=== PATIENT | male | born 1935 | race Caucasian/White ===

== ENCOUNTER 2018-09-21 17:49 | Emergency (ER) | payer OTHER ==
--- NOTE | 2018-09-21 18:06 | PDOC ---
History of Present Illness - General Stated Complaint: GI BLEED Time Seen by Provider: 09/21/18 18:00 - History of Present Illness Initial Comments: 09/21/18 18:01 77 year referred from [facility] HTN, COPD, A.fib, BPH had 2 loose black stools. Had no vomiting. on coumadin. baseline INR: 3.9-3.8, last recorded Hb 10.5 No fevers is not entirely incohorent at baseline - per [facility] the patient can feed himself and can maintain simple conversation. Past History - Past Medical History Allergies/Adverse Reactions: Allergies Allergy/AdvReac Type Severity Reaction Status Date / Time No Known Allergies Allergy Verified 09/21/18 18:04 Home Medications: Ambulatory Orders Acetaminophen [Tylenol] 650 mg PO Q6H 05/13/13 Calcium Carbonate/Vitamin D3 [Oyster Shell Calcium 500+D Tab] 1 each PO BID Captopril [Capoten] 25 mg PO BID 05/13/13 Carvedilol 25 mg PO DAILY 05/13/13 Clopidogrel Bisulfate [Plavix] 75 mg PO DAILY 05/13/13 Docusate Sodium [Colace] 100 mg PO Q8H 05/13/13 Folic Acid 1 mg PO DAILY 05/13/13 Ipratropium 0.02% Nebulizer [Atrovent] 1 neb NEB Q6H PRN 05/13/13 Iron,Carbonyl [Iron] 325 mg PO BID 05/13/13 Levothyroxine [Synthroid] 25 mcg PO DAILY 05/13/13 Na Phos,M-B/Na Phos,Di-Ba [Fleet Enema] 118 ml RC DAILY PRN 05/13/13 Ranitidine HCl [Zantac] 150 mg PO BID 05/13/13 Sennosides [Senna] 8.6 mg PO HS 05/13/13 Simvastatin [Zocor] 40 mg PO HS 05/13/13 Tamsulosin HCl 0.4 mg PO DAILY 05/13/13 Warfarin Sodium [Coumadin] 3 mg PO DAILY 05/13/13 Cardiac Disorders: Yes (A-FIB) CVA: Yes COPD: Yes Diabetes: Yes HTN: Yes Hypercholesterolemia: Yes - Suicide/Smoking/Psychosocial Hx Smoking Status: No Smoking History: Unknown if ever smoked Number of Cigarettes Smoked Daily: 0 *Physical Exam - Physical Exam Comments: 09/21/18 18:25 incohreent in Faroese and spani interpreeter # [id number] distending abdomina no abdominal tenderness, no guarding, no rebound. normo active bowel sounds RRR, CTAB Medical Decision Making - Medical Decision Making 09/21/18 18:26 DDX including but not limited to: LGIB (fissure vs hemorrhoid vs diverticular dz vs Crohns vs UC) vs UGIB (PUD vs gastroesophageal varices vs erosive gastritis/ esophagitis) W/U: - cbc, cmp, pt/inr, ptt, trop, lactic acid - ekg - CXR - TX: - 2L NS ED Course: Patient with fever, meets sepsis criteria on vitals assessment. Will begin sepsis workup and GIB workup.
[2018-09-21 18:37] VITALS: BMI 33.9
[2018-09-21] MEDS ORDERED: SODIUM CHLORIDE 2,000 ML IV SCH (18:45)
[2018-09-21 18:55] LABS: VENOUS PC02 47.3 mmHg (38-52); VENOUS PH 7.41 (7.32-7.42); VENOUS PO2 72.3 mmHg (28-48)
[2018-09-21 18:58] LABS: BASO % 1.1 % (0-2.0); EOS % 9.7 % (0-4.5); HEMATOCRIT 37.4 % (35.4-49); HEMOGLOBIN 11.9 GM/dL (11.7-16.9); MCHC 31.8 g/dl (32.0-35.9); MEAN CELL VOLUME 97.4 fl (80-96); MEAN PLT VOLUME 8.6 fl (7.5-11.1); MONO % 12.6 % (3.8-10.2); NEUT % 57.6 % (42.8-82.8); PLATELET COUNT 251 K/MM3 (134-434); RBC 3.84 M/mm3 (4.00-5.60); RDW 13.5 % (11.9-15.9); WHITE BLOOD COUNT 6.8 K/mm3 (4.0-10.0)
[2018-09-21 19:11] LABS: INR 2.39 (0.83-1.09); PROTHROMBIN TIME (PATIENT) 28.4 SEC (9.7-13.0)
[2018-09-21 19:13] LABS: ACTIVATED PTT 32.2 SECONDS (25.2-36.5)
[2018-09-21] MEDS ORDERED: ACETAMINOPHEN 1000 MG/100 ML VIAL (NON FORMULARY) IVPB ONE (19:13)
[2018-09-21 19:15] LABS: URINE APPEARANCE SLCLOUDY; URINE BILIRUBIN NEGATIVE (<2.0 mg/dL); URINE COLOR YELLOW; URINE GLUCOSE (UA) NEGATIVE (NEGATIVE); URINE KETONE NEGATIVE (NEGATIVE); URINE LEUK ESTERASE NEGATIVE (NEGATIVE); URINE NITRITE NEGATIVE (NEGATIVE); URINE PROTEIN 2+ (NEGATIVE); URINE UROBILINOGEN NEGATIVE mg/dL (0.2-1.0)
[2018-09-21] MEDS ORDERED: PANTOPRAZOLE SODIUM 40 MG VIAL IVPUSH ONE (19:17)
[2018-09-21 19:21] LABS: URINE MUCUS RARE
[2018-09-21 19:23] LABS: ALK PHOS 102 U/L (45-117); ANION GAP 7 MMOL/L (8-16); BILIRUBIN,TOTAL 0.3 mg/dL (0.2-1); BLOOD UREA NITROGEN 38 mg/dL (7-18); CALCIUM 8.5 mg/dL (8.5-10.1); CHLORIDE 106 mmol/L (98-107); CO2 31 mmol/L (21-32); CREATININE 1.2 mg/dL (0.55-1.3); GLUCOSE,RANDOM 135 mg/dL (74-106); POTASSIUM 4.3 mmol/L (3.5-5.1); SGOT/AST 19 U/L (15-37); SGPT/ALT 15 U/L (13-61); SODIUM 143 mmol/L (136-145); TOT PROT 7.2 g/dl (6.4-8.2)
[2018-09-21] MEDS ORDERED: PANTOPRAZOLE SODIUM 40 MG/100 ML BAG IVPB ONE ×2 (19:23→19:24)
[2018-09-21] MEDS ORDERED: ACETAMINOPHEN INJECTION 100 ML IVPB ONE (19:23)
--- NOTE | 2018-09-21 19:26 | PDOC ---
Attending Attestation - HPI HPI: 09/21/18 19:43 The patient is a 82 year old male with past medical history significant for Afib , CVA (with R. side hemiplegia), COPD, DM, HTN, and HLD is a mohawk speaking gentleman presents to the emergency department for evaluation for black colored stool. Per [facility], HANY Copp[facility], patient have 2 episode of loose black colored stool within an hour. The [place] home sent the patient for imaging to rule out GI bleeding, secondary to the use of coumadin. The family denies any change on mental status. Allergies: NKA 09/21/18 23:23 - Physicial Exam PE: 09/21/18 22:18 GENERAL: +afebril. Awake. in no acute distress. Patient has a lee catheter attached to a leg bag with full of yellow-clear urine. HEAD: No signs of trauma EYES: PERRLA, EOMI, sclera anicteric, conjunctiva clear ENT: Auricles normal inspection, hearing grossly normal, nares patent, Moist mucosa NECK: Normal ROM, supple, no lymphadenopathy, JVD, or masses LUNGS: Breath sounds equal, clear to auscultation bilaterally. No wheezes, and no crackles HEART: Regular rate and rhythm, normal S1 and S2, no murmurs, rubs or gallops ABDOMEN: Soft, nontender, No guarding, no rebound. No masses EXTREMITIES: no pitting edema, No cords, erythema, or tenderness NEUROLOGICAL: + R. side hemiparetic. Patient is interactive and at his usual mental state, as per sister and brother in law. Speaking in monosyllables. SKIN: Warm, Dry, normal turgor, no rashes or lesions noted. - Medical Decision Making 09/21/18 22:19 Documentation prepared by Mariana Sanders, acting as medical administrator for Kayla Coello MD. <Mariana Sanders - Last Filed: 09/21/18 23:23> - Resident Resident Name: Chandni Barone - ED Attending Attestation I have performed the following: I have examined & evaluated the patient, The case was reviewed & discussed with the resident, I agree w/resident's findings & plan - Physicial Exam PE: 09/21/18 22:02 Agree with resident exam. Pt appears better now. He is smiling and interacting with us. He is afebrile. He has no abd or chest tenderness - Medical Decision Making 09/21/18 19:24 Pt has a low grade temp. Pt states that he had dark stools, however guaiac negative and Hb/HCT normal. Pt has no UTI; only blood in the urine. He has questionable mentation change. He is awaiting head CT 09/21/18 19:52 CXR is normal 09/21/18 23:40 Patient Name: ERAN EM THIS IS A PRELIMINARY REPORT FROM [facility] SURFACE DATE OF SERVICE: 2018-09-21 21:15:53 IMAGES: [id number] EXAM: CT abdomen/pelvis with contrast HISTORY: Abdominal distention COMPARISON: None. FINDINGS: There is mildly elevated left hemidiaphragm. There is cardiomegaly. There is no free air. Hepatic surface is nodular suggesting hepatic cirrhotic change. Spleen is unremarkable. There is no ascites. The gallbladder is partially contracted. There are no obvious gallstones. Minimal calcification of the gallbladder wall noted in the fundus. *There is a prominent common bile duct with a diameter up to 1.1 cm. There are 3 calculi noted in the distal CBD. The largest of these measures approximately 8 mm. There is no hydronephrosis. There are nonobstructing renal calculi. There is mild bilateral renal cortical scarring. The abdominal aorta and iliac arteries are heavily calcified. There is no AAA. There is extensive vascular calcification. *There is moderately abundant stool noted in the colon. There is no evidence of intestinal obstruction. There are multiple sigmoid diverticuli. There is a segment of thickened sigmoid colon with adjacent pericolonic inflammatory stranding suggesting acute sigmoid diverticulitis. There is bowel wall thickening in the rectum consistent with proctitis. The appendix is normal in size. There is no evidence of appendicitis. Urinary bladder is decompressed via a Lee catheter. There is a moderately enlarged prostate 09/21/18 23:41 Pt with sigmoid diverticulitis and proctitis. Pt will be treated with ceftriaxone and zithromax and he will be discharged back to [facility]. <Kayla Coello - Last Filed: 09/21/18 23:41>
--- NOTE | 2018-09-21 19:49 | PDOC ---
*Physical Exam - Vital Signs Last Vital Signs Temp Pulse Resp BP Pulse Ox 100.1 F H 95 H 20 186/81 H 97 09/21/18 18:04 09/21/18 18:04 09/21/18 18:04 09/21/18 18:04 09/21/18 18:18 - Physical Exam Comments: 09/21/18 19:56 GENERAL: Awake, alert, in no acute distress HEAD: No signs of trauma, normocephalic, atraumatic EYES: PERRLA, EOMI, sclera anicteric, conjunctiva clear ENT: Auricles normal inspection, hearing grossly normal, nares patent, oropharynx clear without exudates. Moist mucosa NECK: Normal ROM, supple, no lymphadenopathy, JVD, or masses LUNGS: No distress, speaks full sentences, clear to auscultation bilaterally HEART: Regular rate and rhythm, normal S1 and S2, no murmurs, rubs or gallops, peripheral pulses normal and equal bilaterally. ABDOMEN: Soft, nontender, normoactive bowel sounds. No guarding, no rebound. No masses EXTREMITIES: Normal inspection, Normal range of motion, no edema. No clubbing or cyanosis. SKIN: Warm, Dry, normal turgor, no rashes or lesions noted. ED Treatment Course - LABORATORY CBC & Chemistry Diagram: 09/21/18 18:22 09/21/18 18:22 - ADDITIONAL ORDERS Additional order review: Laboratory Results 09/21/18 09/21/18 09/21/18 18:22 18:22 18:22 VBG pH 7.41 POC VBG pCO2 47.3 POC VBG pO2 72.3 H Mixed VBG HCO3 29.3 H Sodium 143 Potassium 4.3 Chloride 106 Carbon Dioxide 31 Anion Gap 7 L BUN 38 H Creatinine 1.2 Creat Clearance w eGFR 57.82 Random Glucose 135 H Calcium 8.5 Total Bilirubin 0.3 AST 19 ALT 15 Alkaline Phosphatase 102 Total Protein 7.2 Albumin 3.0 L Urine Color Urine Appearance Urine pH Ur Specific [place] Urine Protein Urine Glucose (UA) Urine Ketones Urine Blood Urine Nitrite Urine Bilirubin Urine Urobilinogen Ur Leukocyte Esterase Stool Occult Blood Negative 09/21/18 18:22 VBG pH POC VBG pCO2 POC VBG pO2 Mixed VBG HCO3 Sodium Potassium Chloride Carbon Dioxide Anion Gap BUN Creatinine Creat Clearance w eGFR Random Glucose Calcium Total Bilirubin AST ALT Alkaline Phosphatase Total Protein Albumin Urine Color Yellow Urine Appearance Slcloudy Urine pH 5.0 Ur Specific [place] 1.021 Urine Protein 2+ H Urine Glucose (UA) Negative Urine Ketones Negative Urine Blood 3+ H Urine Nitrite Negative Urine Bilirubin Negative Urine Urobilinogen Negative Ur Leukocyte Esterase Negative Stool Occult Blood 09/21/18 18:22 RBC 3.84 L MCV 97.4 H MCHC 31.8 L RDW 13.5 MPV 8.6 Neutrophils % 57.6 D Lymphocytes % 19.0 D Monocytes % 12.6 H Eosinophils % 9.7 H Basophils % 1.1 Medical Decision Making - Medical Decision Making 09/21/18 19:[address] Barone. Patient is 82M with history of HTN, COPD, afib (on coumadin), GI bleed, BPH here today with reported dark stool and altered mental status. After Dr Barone's initial evaluation, family arrived to bedside and stated that patient is at his normal mental status. residential states no vomiting, but did have 2 dark, loose stools. Hgb stable, other labs pending. CT abdomen pending. 09/21/18 21:07 BUN 38/Cr 1.2, safe for IV contrast. 09/21/18 21:37 Laboratory Tests 09/21/18 09/21/18 09/21/18 18:22 18:22 18:22 WBC 6.8 Hgb 11.9 Plt Count 251 INR 2.39 H BUN Creatinine Creat Clearance w eGFR Urine Blood 3+ H Urine RBC (Auto) 660 Stool Occult Blood 09/21/18 09/21/18 18:22 18:22 WBC Hgb Plt Count INR BUN 38 H Creatinine 1.2 Creat Clearance w eGFR 57.82 Urine Blood Urine RBC (Auto) Stool Occult Blood Negative CBC normal. CMP reassuring. INR 2.39, coumadin at level. UA shows blood. FOBT normal. Pending CT abdomen. 09/21/18 22:50 CT shows dilated CBD, no pain on repeat exam. CT shows colitis/diverticulitis in sigmoid colon. Patient has no pain on exam, tolerating PO. Will discharge with cipro and flagyl. Discussed how to send prescriptions for patient to long term with [facility], they ask for it to be included in his discharge instructions. *DC/Admit/Observation/Transfer Diagnosis at time of Disposition: Diverticulitis - Discharge Dispostion Disposition: HOME Condition at time of disposition: Good Decision to Admit order: No - Referrals - Patient Instructions Printed Discharge Instructions: DI for Diverticulitis Additional Instructions: The patient was seen today in the ED and found to have diverticulitis. He needs: -500 metronidazole three times per day for 10 days -500 ciprofloxacin two times per day for 10 days Please sent the patient back to the ED if the patient has any new, worsening or concerning symptoms, especially inability to eat, fevers, and increasing pain. - Post Discharge Activity
[2018-09-21] MEDS ORDERED: CARVEDILOL 25 MG TABLET (FP) PO ONE (22:09)
[2018-09-21] MEDS ORDERED: metroNIDAZOLE 500 MG TABLET PO ONE (22:50)
[2018-09-21] MEDS ORDERED: CARVEDILOL 12.5 MG TABLET (FP) ONE (23:21)
[2018-09-21] MEDS ORDERED: metroNIDAZOLE 250 MG TABLET ONE (23:21)
[2018-09-22 02:11] VITALS: BP 158/74; PULSE 90; TEMP 98
--- NOTE | 2018-09-22 14:01 | EKG ---
Test Reason : Blood Pressure : / mmHG Vent. Rate : 092 BPM Atrial Rate : 089 BPM P-R Int : 000 ms QRS Dur : 072 ms QT Int : 348 ms P-R-T Axes : 000 037 063 degrees QTc Int : 430 ms ATRIAL FIBRILLATION ABNORMAL ECG WHEN COMPARED WITH ECG OF 02-MAR-2011 14:32, VENT. RATE HAS INCREASED BY 32 BPM NONSPECIFIC T WAVE ABNORMALITY NO LONGER EVIDENT IN INFERIOR LEADS Confirmed by MD Gerardo, Maynor ([id number]) on 09/22/2018 2:00:54 PM Referred By: Confirmed By:Maynor Carrillo MD
== END 2018-09-22 00:23 | disposition home or self-care (01) ==
LOC: JER 17:49
PROC: 3E033NZ Introduction of Analgesics, Hypnotics, Sedatives into Peripheral Vein, Percutaneous Approach (ICD-10-PCS; principal; 2018-09-21)
PROC: 3E033GC Introduction of Other Therapeutic Substance into Peripheral Vein, Percutaneous Approach (ICD-10-PCS; 2018-09-21)
DX: K57.20 Diverticulitis of large intestine with perforation and abscess without bleeding (principal); I10 Essential (primary) hypertension; J44.9 Chronic obstructive pulmonary disease, unspecified; N40.0 Benign prostatic hyperplasia without lower urinary tract symptoms; I48.91 Unspecified atrial fibrillation; Z79.01 Long term (current) use of anticoagulants; I69.851 Hemiplegia and hemiparesis following other cerebrovascular disease affecting right dominant side
CPT/HCPCS: 36415; 71045-TC-FY; 74177-TC; 80053; 81003; 81015; 82272; 82803; 83605; 84484; 85025; 85610; 85730; 86850; 86900; 86901; 87040; 87086; 93005; 93010; 96374; 96375; 99285-25; J0131; J7030

== ENCOUNTER 2018-10-17 16:44 | Inpatient (IN) | payer OTHER ==
--- NOTE | 2018-10-17 17:07 | PDOC ---
History of Present Illness - General Stated Complaint: LETHARGIC Time Seen by Provider: 10/17/18 17:15 History Source: EMS, Family Exam Limitations: Clinical Condition, Dementia - History of Present Illness Initial Comments: 10/17/18 16:59 82YOM with h/o vascular dementia, aphasia, diverticulitis (dx 09/21/18 and placed on cipro/metronidazole), Afib on Xarelto, CVA (residual right sided hemiplegia), COPD, DM, HTN, and HLD; BIBEMS from [facility] where staff reported he had been more lethargic, having slight difficulty breathing, and having decreased mental status since yesterday. The sister states his mental status has actually been fluctuating for the past few weeks. She notes he finished the initial antibiotics given for the diverticulitis but his diarrhea recurred, so he was re-started on antibiotics (started ceftriaxone 10/16 and flagyl 10/12). The patient's diarrhea was reported to have stopped as of yesterday, but now he is not having any bowel movements. The SNF noted very strong smelling urine today too. Past History - Past Medical History Allergies/Adverse Reactions: Allergies Allergy/AdvReac Type Severity Reaction Status Date / Time No Known Allergies Allergy Verified 10/17/18 20:05 Home Medications: Ambulatory Orders Calcium Carbonate/Vitamin D3 [Oyster Shell Calcium 500+D Tab] 1 each PO BID Carvedilol 25 mg PO BID 05/13/13 Docusate Sodium [Colace] 100 mg PO HS 05/13/13 Folic Acid 1 mg PO DAILY 05/13/13 Levothyroxine [Synthroid] 50 mcg PO DAILY 05/13/13 Na Phos,M-B/Na Phos,Di-Ba [Fleet Enema] 118 ml RC DAILY PRN 05/13/13 Sennosides [Senna] 8.6 mg PO HS 05/13/13 Simvastatin [Zocor] 40 mg PO HS 05/13/13 Warfarin Sodium [Coumadin] 2 mg PO HS 05/13/13 Ferrous Sulfate 60 mg PO BID 09/21/18 Magnesium Hydroxide [Milk of Magnesia] 30 ml PO PRN PRN 09/21/18 Tamsulosin HCl [Flomax] 0.4 mg PO DAILY 09/21/18 Tiotropium [place] [Spiriva] 18 mcg IH DAILY 09/21/18 Anemia: Yes Cardiac Disorders: Yes (A-FIB) CVA: Yes COPD: Yes Diabetes: Yes HTN: Yes Hypercholesterolemia: Yes Thyroid Disease: Yes (HYPO) - Suicide/Smoking/Psychosocial Hx Smoking Status: No Smoking History: Unknown if ever smoked Number of Cigarettes Smoked Daily: 0 Review of Systems - Review of Systems Able to Perform ROS?: No (dementia) *Physical Exam - Vital Signs Initial Vital Signs Temp Pulse Resp BP Pulse Ox 102.5 F H 117 H 20 168/89 98 10/17/18 17:26 10/17/18 17:26 10/17/18 17:26 10/17/18 17:26 10/17/18 17:26 - Physical Exam Comments: 10/17/18 17:37 GENERAL: obtunded, unable to answer questions, uncomfortable, moaning apparently in pain, nonverbal, family at bedside HEENT: PERRLA, EOMI, moist mucous membranes NECK/BACK: no spinal stepoff or deformity, no hematoma, neck supple CARDIOVASCULAR: irregularly irregular and tachycardic, normal S1S2, no MGR, capillary refill 4 seconds, lukewarm, no edema LUNGS/RESPIRATORY: shallow rapid respirations, decreased breath sounds bilaterally but lungs CTAB GI/ABDOMEN: distended, mildly tight, symmetric [id number], normoactive BS, no obvious midline pulsatile masses but this exam is limited by protuberance, no obvious organomegaly : normal external appearance, no lesions, no swelling, non-malodorous EXTREMITIES: right extremity muscle atrophy, no acute deformity, right sacral and proximal RLE edema, RUE edema SKIN: very dry, +tenting, no pallor, no jaundice, no rash, no bruising, no skin breakdown, no cuts NEUROLOGICAL: alert, unable to assess orientation, CN II-XII grossly intact, no obvious facial droop, otherwise patient is unable to participate in exam Heart Score/ECG Review #1 10/17/18 18:37 Significant artifact. A-fib with RVR, rate 124, normal axis, QTc wnl, no ischemic ST-T changes ED Treatment Course - LABORATORY CBC & Chemistry Diagram: 10/19/18 08:00 10/19/18 17:41 Medical Decision Making - Medical Decision Making 10/17/18 17:33 Pt presents with abdominal distention and discomfort. Initial Vital Signs Temp Pulse Resp BP Pulse Ox 102.5 F H 117 H 20 168/89 98 10/17/18 17:26 10/17/18 17:26 10/17/18 17:26 10/17/18 17:26 10/17/18 17:26 Exam: As noted in Physical Exam section. DDX IBNLT: SBO, constipation, gas, ascites, GI perforation, abdominal compartment syndrome, colitis or diverticulitis wwo rupture or abscess, toxic megacolon, appendicitis wwo rupture, pancreatitis wwo abscess/pseudocyst (MC cause gallstones and EtOH; also hypercalcemia, neoplasm, medications, ERCP complication, abdominal surgery/instrumentation, trauma, SBP (indu. w/ h/o cirrhosis/EtOH), AAA/AD wwo rupture, ischemic colitis wwo perforation (embolism , bowel obstruction, inadequate systemic perfusion, medications, surgery- induced vascular compromise), etc. W/U ordered: CBCD CMP Mg Phos Lactate BCx Troponin CK CKMB FOBT EKG CXR Abdominal XR CT A/P with IV contrast TX ordered: 30 mg/kg IVF (none were given en route) EKG: Reviewed, in HEART/ECG section Laboratory Tests 10/17/18 10/17/18 10/17/18 17:50 17:50 17:50 WBC 7.9 RBC 3.69 L Hgb 12.3 Hct 37.1 MCV 100.5 H MCH 33.3 MCHC 33.1 RDW 16.9 H Plt Count 261 MPV 9.7 D Absolute Neuts (auto) 6.4 Neutrophils % 81.1 D Lymphocytes % 11.4 D Monocytes % 6.8 Eosinophils % 0.3 D Basophils % 0.4 Nucleated RBC % 0 PT with INR 15.10 H INR 1.28 H PTT (Actin FS) 26.7 VBG pH POC VBG pCO2 POC VBG pO2 Mixed VBG HCO3 Sodium Potassium Chloride Carbon Dioxide Anion Gap BUN Creatinine Creat Clearance w eGFR Random Glucose Lactic Acid Calcium Total Bilirubin AST ALT Alkaline Phosphatase Creatine Kinase CK-MB (CK-2) Troponin I Total Protein Albumin Urine Color Yellow Urine Appearance Slcloudy Urine pH 5.0 Ur Specific [place] 1.018 Urine Protein 1+ H Urine Glucose (UA) Negative Urine Ketones Negative Urine Blood 1+ H Urine Nitrite Negative Urine Bilirubin Negative Urine Urobilinogen Negative Ur Leukocyte Esterase Trace Urine WBC (Auto) 3 Urine RBC (Auto) 7 Hyaline Casts 8 Urine Mucus Rare 10/17/18 10/17/18 10/17/18 17:50 17:50 17:50 WBC RBC Hgb Hct MCV MCH MCHC RDW Plt Count MPV Absolute Neuts (auto) Neutrophils % Lymphocytes % Monocytes % Eosinophils % Basophils % Nucleated RBC % PT with INR INR PTT (Actin FS) VBG pH 7.22 L* D POC VBG pCO2 75.0 H* D POC VBG pO2 22.5 L D Mixed VBG HCO3 29.3 H Sodium 151 H Potassium 5.1 Chloride 120 H Carbon Dioxide 29 Anion Gap 1 L BUN 73 H Creatinine 1.8 H Creat Clearance w eGFR 36.21 Random Glucose 111 H Lactic Acid 1.2 Calcium 9.1 Total Bilirubin 0.3 AST 31 ALT 15 Alkaline Phosphatase 80 Creatine Kinase 141 CK-MB (CK-2) < 1.0 Troponin I 0.04 Total Protein 6.6 Albumin 2.4 L Urine Color Urine Appearance Urine pH Ur Specific [place] Urine Protein Urine Glucose (UA) Urine Ketones Urine Blood Urine Nitrite Urine Bilirubin Urine Urobilinogen Ur Leukocyte Esterase Urine WBC (Auto) Urine RBC (Auto) Hyaline Casts Urine Mucus RAD/CHEST X-RAY PORTABLE* AP portable chest: Sepsis A single AP view the chest has been submitted. Since 09/21/2018 there is no significant change. Again noted is the large heart, heavily calcified aorta, elevated left hemidiaphragm and no sign of an acute infiltrate or failure. Impression: No significant change since prior exam. RAD/ABDOMEN FLAT UPRIGHT HISTORY PROVIDED: Rule out bowel obstruction Supine and erect views of the abdomen demonstrate no evidence of free intra-abdominal air or bowel obstruction. There is a nonspecific bowel gas pattern with no evidence of abdominal masses, significant calcifications or organomegaly. Extensive vascular calcification of the thoracic and abdominal aorta is noted. Degenerative changes of the lumbar spine are identified, as well. IMPRESSION: No acute disease. Patient's mental status and remaining exam are unchanged. Vital Signs Temperature 102.5 F H 10/17/18 17:26 Pulse Rate 117 H 10/17/18 18:53 Respiratory Rate 18 10/17/18 18:53 Blood Pressure 108/59 L 10/17/18 18:53 O2 Sat by Pulse Oximetry (%) 97 10/17/18 18:53 Reassessment: Patient more agitated prior to going to CT scan. Given 2 mg Haldol (QTc wnl on today's EKG). VS wnl prior to going to CT scan, he is going with O2 via NC. 10/17/18 20:28 Patient seemed to gag slightly on secretions. HOB is elevated. Patient getting ABG; sent to lab. Getting DuoNeb. 10/17/18 20:20 Anticoagulation Therapy No Result Required. Puncture Site No Result Required. ABG pH 7.29 L ABG pCO2 at Pt Temp 55.8 H ABG pO2 at Pt Temp 41.8 L* ABG HCO3 26.1 H ABG O2 Sat (Measured) 73.6 L* ABG O2 Content 11.5 L ABG Base Excess -0.6 Nate Test Positive VBG pH POC VBG pCO2 POC VBG pO2 Mixed VBG HCO3 Methemoglobin 0.6 O2 Delivery Device No Result Required. Oxygen Flow Rate No Result Required. Vent Mode No Result Required. Vent Rate No Result Required. Mechanical Rate No Result Required. Pressure Support Vent No Result Required. Patient placed on BiPAP, tolerating well. CT/ABDOMEN PELVIS CT W/O CONTR HISTORY PROVIDED: Abdominal distention TECHNIQUE : Sequential axial images were obtained from the domes of the diaphragm through the symphysis pubis. The study is markedly limited without the use of any contrast material. Evaluation of the lung bases demonstrates small bilateral pleural effusions. There is plate like atelectasis at the left lung base. Right pleural calcifications are present. The heart is enlarged. The liver is somewhat small in size and irregular in contour suggesting advanced hepatocellular disease. Clinical and laboratory correlation is advised. There are a few hepatic calcifications consistent with prior granulomatous disease. The spleen is not enlarged. The gallbladder is clear, however, there are multiple calcifications within a mildly dilated common bile duct consistent with choledocholithiasis. The duct measures 1.3 cm. This finding had been identified on a prior study of 09/21/2018. The pancreas, adrenal glands and kidneys demonstrate no significant abnormalities. There is heavy vascular calcification throughout the abdominal aorta and its branches. There is no evidence of intra-abdominal or retroperitoneal lymphadenopathy or fluid collections. There is no evidence of pneumoperitoneum, bowel obstruction or intra-abdominal abscess. There is no evidence of acute appendicitis. There is an amorphous appearance of the rectum and sigmoid colon with mild inflammatory changes in the adjacent mesenteric fat. This suggests focal colitis. The remainder of the colon appears spared of this process. Follow-up colonoscopy is now recommended. There is no evidence of acute diverticulitis. Examination of the pelvis demonstrates no evidence of pelvic masses, fluid collections or lymphadenopathy. The prostate gland is enlarged measuring 5.6 x 4.8 x 5.3 cm. There is no evidence of acute bony pathology. IMPRESSION: 1. Cardiomegaly, small bilateral pleural effusions left basilar atelectasis and right pleural calcifications. 2. Small irregular liver consistent with cirrhosis. 3. Extensive vascular calcification throughout the abdominal aorta and its branches. 4. Choledocholithiasis with mild dilatation of the CBD unchanged since 09/21/2018. 5. Amorphous appearance of the rectosigmoid colon suggesting focal colitis. Clinical and fluoroscopic follow-up recommended. 6. Prostatic enlargement. Please see above discussion. Patient given Zosyn 4.5 mg IVPB. The Pts symptoms persist despite ED treatments. He is unsafe for discharge at this time. He requires further hospital observation, workup, and treatment. Microblog sent to [facility] for admission. Blank Decision to Admit order is placed per ED protocol. I spoke with Dr. Resendiz, patient going to Med/Surg IP, order corrected with Dr. Resendiz' name. *DC/Admit/Observation/Transfer Diagnosis at time of Disposition: Colitis, Atrial fibrillation with RVR, Hypernatremia Sepsis Qualifiers: Sepsis type: sepsis due to unspecified organism Qualified Code(s): A41.9 - Sepsis, unspecified organism - Discharge Dispostion Condition at time of disposition: Guarded Decision to Admit order: Yes - Referrals - Patient Instructions - Post Discharge Activity
--- NOTE | 2018-10-17 17:26 | PDOC ---
Attending Attestation - Resident Resident Name: Adelita Irwin - ED Attending Attestation I have performed the following: I have examined & evaluated the patient, The case was reviewed & discussed with the resident, I agree w/resident's findings & plan, Exceptions are as noted - HPI HPI: 82 yo M sent by [facility] for persistent diarrhea. Recently treated with cipro/ flagyl, has had persistent symptoms. Now with decreased PO intake, increased agitation. Unable to offer any history, nonverbal at baseline. - Physicial Exam PE: GENERAL: Awake, alert. Tachypneic. Appears ill. Nonverbal. HEAD: No signs of trauma EYES: PERRLA, EOMI, sclera anicteric, conjunctiva clear ENT: Auricles normal inspection, hearing grossly normal, nares patent, oropharynx clear without exudates. Dry mucosa. Poor dentition. NECK: Normal ROM, supple, no lymphadenopathy, JVD, or masses LUNGS: Breath sounds equal, clear to auscultation bilaterally. No wheezes, and no crackles HEART: Tachycardic, normal S1 and S2, no murmurs, rubs or gallops ABDOMEN: Soft, protuberant, mildly distended, diffusely tender. +Hyperactive bowel sounds. +Guarding. No masses EXTREMITIES: Normal range of motion. No pedal edema. No clubbing or cyanosis. No cords, erythema, or tenderness NEUROLOGICAL: Cranial nerves II through XII grossly intact. RUE/RLE paralysis ( prior CVA). Motor and sensation to LUE/LLE grossly intact. SKIN: Warm, Dry, normal turgor, no rashes or lesions noted. - Medical Decision Making Pt presents with sepsis due to colitis. Failed outpatient treatment with cipro/ flagyl. CT a/p with no signs of toxic megacolon. Will give IV hydration, abx, and admit.
[2018-10-17] MEDS ORDERED: SODIUM CHLORIDE 0.9% 500 ML INFUS.BAG IV ONE (17:29)
[2018-10-17 18:03] LABS: BASO % 0.4 % (0-2.0); EOS % 0.3 % (0-4.5); HEMATOCRIT 37.1 % (35.4-49); HEMOGLOBIN 12.3 GM/dL (11.7-16.9); LYMPH % 11.4 % (8-40); MCH 33.3 pg (25.7-33.7); MCHC 33.1 g/dl (32.0-35.9); MEAN CELL VOLUME 100.5 fl (80-96); MEAN PLT VOLUME 9.7 fl (7.5-11.1); MONO % 6.8 % (3.8-10.2); NEUT % 81.1 % (42.8-82.8); PLATELET COUNT 261 K/MM3 (134-434); RBC 3.69 M/mm3 (4.00-5.60); RDW 16.9 % (11.9-15.9); WHITE BLOOD COUNT 7.9 K/mm3 (4.0-10.0)
[2018-10-17 18:05] LABS: VENOUS PO2 22.5 mmHg (28-48)
[2018-10-17 18:06] LABS: URINE APPEARANCE SLCLOUDY; URINE BILIRUBIN NEGATIVE (<2.0 mg/dL); URINE COLOR YELLOW; URINE GLUCOSE (UA) NEGATIVE (NEGATIVE); URINE KETONE NEGATIVE (NEGATIVE); URINE LEUK ESTERASE TRACE (NEGATIVE); URINE NITRITE NEGATIVE (NEGATIVE); URINE PROTEIN 1+ (NEGATIVE); URINE UROBILINOGEN NEGATIVE mg/dL (0.2-1.0)
[2018-10-17 18:10] LABS: URINE HYALINE CAST 8 /lpf; URINE MUCUS RARE; VENOUS PH 7.22 (7.32-7.42)
[2018-10-17 18:16] LABS: INR 1.28 (0.83-1.09); PROTHROMBIN TIME (PATIENT) 15.1 SEC (9.7-13.0)
[2018-10-17 18:19] LABS: ACTIVATED PTT 26.7 SECONDS (25.2-36.5)
[2018-10-17 18:39] LABS: ALBUMIN 2.4 g/dl (3.4-5.0); ALK PHOS 80 U/L (45-117); ANION GAP 1 MMOL/L (8-16); BILIRUBIN,TOTAL 0.3 mg/dL (0.2-1); BLOOD UREA NITROGEN 73 mg/dL (7-18); CALCIUM 9.1 mg/dL (8.5-10.1); CHLORIDE 120 mmol/L (98-107); CO2 29 mmol/L (21-32); CREATININE 1.8 mg/dL (0.55-1.3); GLUCOSE,RANDOM 111 mg/dL (74-106); POTASSIUM 5.1 mmol/L (3.5-5.1); SGOT/AST 31 U/L (15-37); SGPT/ALT 15 U/L (13-61); SODIUM 151 mmol/L (136-145); TOT PROT 6.6 g/dl (6.4-8.2)
[2018-10-17] MEDS ORDERED: ACETAMINOPHEN 1000 MG/100 ML VIAL (NON FORMULARY) IVPB ONE (18:42)
[2018-10-17] MEDS ORDERED: ACETAMINOPHEN INJECTION 100 ML IVPB ONE (18:42)
[2018-10-17] MEDS ORDERED: HALOPERIDOL LACTATE 5 MG/ML IM ONE (19:43)
[2018-10-17] MEDS ORDERED: HALOPERIDOL LACTATE 5 MG/ML ONE (19:46)
[2018-10-17 20:26] LABS: ARTERIAL BLOOD GAS PCO2 55.8 mmHg (35-45); ARTERIAL BLOOD GAS pH 7.29 (7.35-7.45)
[2018-10-17] MEDS ORDERED: ALBUTEROL SO4 2.5/IPRATROPIUM 0.5 INH SOL 3 ML VIAL.NEB. NEB ONE ×2 (20:26→20:27)
[2018-10-17 20:27] LABS: ALLENS TEST POSITIVE; ARTERIAL BLOOD GAS BASE EXCESS -0.6 meq/l (-2-2)
[2018-10-17 20:30] LABS: ARTERIAL BLD GAS O2 SATURATION 73.6 % (90-98.9); ARTERIAL BLOOD GAS PO2 41.8 mmHg (68-100)
--- NOTE | 2018-10-17 22:11 | PN ---
Teaching Attending Note Name of Resident: Gorge [place] ATTENDING PHYSICIAN STATEMENT I saw and evaluated the patient. I reviewed the resident's note and discussed the case with the resident. I agree with the resident's findings and plan as documented. SUBJECTIVE: 82YOM with h/o vascular dementia, aphasia, diverticulitis (dx 09/21/18 and placed on cipro/metronidazole), Afib on Xarelto, CVA (residual right sided hemiplegia), COPD, DM, HTN, and HLD; BIBEMS from [facility] where staff reported he had been more lethargic, having slight difficulty breathing, and having decreased mental status since yesterday. The sister states his mental status has actually been fluctuating for the past few weeks. She notes he finished the initial antibiotics given for the diverticulitis but his diarrhea recurred, so he was re-started on antibiotics (started ceftriaxone 10/16 and flagyl 10/12). The patient's diarrhea was reported to have stopped as of yesterday, but now he is not having any bowel movements. The SNF noted very strong smelling urine today too. OBJECTIVE: HEENT: No Jaundice, eye redness or discharge, PERRLA, EOMI. Normocephalic, atraumatic. External ears are normal and hearing is grossly intact. No nasal discharge. Neck: Supple, nontender. No palpable adenopathy or thyromegaly. No JVD Chest: Good effort. Clear to auscultation and percussion. Heart: Regular. No S3, rub or murmur Abdomen: Not distended, soft, nontender and no HSM. No rebound or guarding. Normoactive bowel sounds. Ext: Peripheral pulses intact. No leg edema. Skin: Warm and dry. No petechiae, rash or ecchymosis. Neuro: Alert. Oriented x3. CN 2-12 grossly intact. Sensation grossly intact in all four extremities and DTR are symmetric. ASSESSMENT AND PLAN: Hypoalbuminemia - Possibly due to combined effects of malnutrition and inflammation associated with comorbid chronic conditions. Will ensure adequate dietary protein intake and also consult paint roller covermaker. DM - For now, we will hold the home diabetes drugs and implement sliding scale insulin regimen. Provide comprehensive diabetes care with patient teaching and counseling about the importance of euglycemia, eye care and foot care. Tobacco Use We will provide patient all the necessary assistance to facilitate smoking cessation and prescribe Nicotine patch. Will consult nephrology and avoid nephrotoxic agents such as NSAIDS, aminoglycosides, contrast dyes and certain Alternative medicine products. Anemia - Do basic anemia work up including serial stool guaiacs, reticulocyte count and iron studies. Would benefit from Procrit therapy once iron replete. Obesity - Will provide patient all the necessary assistance , counseling and positive reinforcement to facilitate weight loss. Consult paint roller covermaker. Alcohol abuse - Implement [facility] alcohol withdrawal protocol, fall and aspiration precautions. Treat with thiamine and folic acid and monitor electrolytes (Ca,Mg,K,P). International Logistics Manager patient about abstaining from alcohol and refer to alcohol detox upon discharge. DVT prophylaxis - Heparin 5000u sq tid. Lovenox 40 mg SQ q 24 hours. Advance directives - Full code
[2018-10-17] MEDS ORDERED: PIPERACILLIN/TAZOB 4.5 GM 4.5 GM in DEXTROSE 5%-WATER 100 ML IVPB ONE (22:24)
[2018-10-17] MEDS ORDERED: PIPERACILLIN/TAZOB 4.5 GM 4.5 GM/100 ML BAG IVPB ONE (22:27)
--- NOTE | 2018-10-17 22:57 | HP ---
CHIEF COMPLAINT: sepsis PCP: Gina HISTORY OF PRESENT ILLNESS: 82YOM with h/o vascular dementia, bedbound, aphasic, diverticulitis Afib on Xarelto, hypothyroidism, CVA (residual right sided hemiplegia),COPD, recently treated for colitis, comes in lethargic from [place]. Found to have fever and tachycardia on arrival. Was reported to have several bouts of diarrhea prior to arrival but none in ER. CT of abdomen/pelvis showed colitis. Given pip/tazo, IV fluid. ER course was notable for: (1) zosyn (2) CT of abdomen/pelvis (3) IV fluid Recent Travel: no PAST MEDICAL HISTORY: vascular dementia, aphasia, diverticulitis, Afib on Xarelto, CVA (residual right sided hemiplegia), COPD PAST SURGICAL HISTORY: unknown Social History: unknown Smoking: Alcohol: Drugs: Family History: unknown Allergies No Known Allergies Allergy (Verified 10/17/18 20:05) HOME MEDICATIONS: Home Medications Medication Instructions Recorded Calcium Carbonate/Vitamin D3 1 each PO BID 05/13/13 [Oyster Shell Calcium 500+D Tab] Carvedilol 25 mg PO BID 05/13/13 Docusate Sodium [Colace] 100 mg PO HS 05/13/13 Folic Acid 1 mg PO DAILY 05/13/13 Levothyroxine [Synthroid] 50 mcg PO DAILY 05/13/13 Na Phos,M-B/Na Phos,Di-Ba [Fleet 118 ml RC DAILY PRN 05/13/13 Enema] Sennosides [Senna] 8.6 mg PO HS 05/13/13 Simvastatin [Zocor] 40 mg PO HS 05/13/13 Warfarin Sodium [Coumadin] 2 mg PO HS 05/13/13 Ferrous Sulfate 60 mg PO BID 09/21/18 Magnesium Hydroxide [Milk of 30 ml PO PRN PRN 09/21/18 Magnesia] Tamsulosin HCl [Flomax] 0.4 mg PO DAILY 09/21/18 Tiotropium [place] [Spiriva] 18 mcg IH DAILY 09/21/18 REVIEW OF SYSTEMS- unable to obtain PHYSICAL EXAMINATION Vital Signs - 24 hr 10/17/18 10/17/18 10/17/18 17:26 18:53 19:35 Temperature 102.5 F H Pulse Rate 117 H Pulse Rate [ 117 H 119 H Apical] Respiratory 20 18 20 Rate Blood Pressure 168/89 Blood Pressure 108/59 L 152/110 H [Right] O2 Sat by Pulse 98 97 94 L Oximetry (%) 10/17/18 10/17/18 10/17/18 20:12 20:13 20:17 Temperature 99.9 F H Pulse Rate Pulse Rate [ Apical] Respiratory Rate Blood Pressure Blood Pressure 136/108 H [Right] O2 Sat by Pulse 94 L Oximetry (%) 10/17/18 10/17/18 21:16 21:50 Temperature Pulse Rate Pulse Rate [ 116 H Apical] Respiratory 20 Rate Blood Pressure Blood Pressure 128/108 H [Right] O2 Sat by Pulse 97 100 Oximetry (%) GENERAL: Awake, alert, nonverbal, on Bipap HEAD: Normal with no signs of trauma. EYES: pinpoint pupils b/l EARS, NOSE, THROAT: Ears normal, nares patent, oropharynx clear without exudates. Moist mucous membranes. NECK: Normal range of motion, supple without lymphadenopathy, JVD, or masses. LUNGS: Breath sounds equal, clear to auscultation bilaterally. No wheezes, and no crackles. No accessory muscle use. HEART: normal S1 and S2, tachycardia without murmur, rub or gallop. ABDOMEN: Soft, not distended, normoactive bowel sounds, mild guarding on palpation MUSCULOSKELETAL: Normal range of motion at all joints. No bony deformities or tenderness. No CVA tenderness. UPPER EXTREMITIES: 2+ pulses, warm, well-perfused. No cyanosis. No clubbing. No peripheral edema. LOWER EXTREMITIES: 2+ pulses, warm, well-perfused. No calf tenderness. No peripheral edema. PSYCHIATRIC: nonverbal SKIN: Warm, dry, normal turgor, no rashes or lesions noted, normal capillary refill. Laboratory Results - last 24 hr 10/17/18 10/17/18 10/17/18 17:50 17:50 17:50 WBC 7.9 RBC 3.69 L Hgb 12.3 Hct 37.1 MCV 100.5 H MCH 33.3 MCHC 33.1 RDW 16.9 H Plt Count 261 MPV 9.7 D Absolute Neuts (auto) 6.4 Neutrophils % 81.1 D Lymphocytes % 11.4 D Monocytes % 6.8 Eosinophils % 0.3 D Basophils % 0.4 Nucleated RBC % 0 PT with INR 15.10 H INR 1.28 H PTT (Actin FS) 26.7 Anticoagulation Therapy Puncture Site ABG pH ABG pCO2 at Pt Temp ABG pO2 at Pt Temp ABG HCO3 ABG O2 Sat (Measured) ABG O2 Content ABG Base Excess Nate Test VBG pH POC VBG pCO2 POC VBG pO2 Mixed VBG HCO3 Methemoglobin O2 Delivery Device Oxygen Flow Rate Vent Mode Vent Rate Mechanical Rate Pressure Support Vent Sodium Potassium Chloride Carbon Dioxide Anion Gap BUN Creatinine Creat Clearance w eGFR Random Glucose Lactic Acid Calcium Total Bilirubin AST ALT Alkaline Phosphatase Creatine Kinase CK-MB (CK-2) Troponin I Total Protein Albumin Urine Color Yellow Urine Appearance Slcloudy Urine pH 5.0 Ur Specific Welches 1.018 Urine Protein 1+ H Urine Glucose (UA) Negative Urine Ketones Negative Urine Blood 1+ H Urine Nitrite Negative Urine Bilirubin Negative Urine Urobilinogen Negative Ur Leukocyte Esterase Trace Urine WBC (Auto) 3 Urine RBC (Auto) 7 Hyaline Casts 8 Urine Mucus Rare Blood Type Antibody Screen 10/17/18 10/17/18 10/17/18 17:50 17:50 17:50 WBC RBC Hgb Hct MCV MCH MCHC RDW Plt Count MPV Absolute Neuts (auto) Neutrophils % Lymphocytes % Monocytes % Eosinophils % Basophils % Nucleated RBC % PT with INR INR PTT (Actin FS) Anticoagulation Therapy Puncture Site ABG pH ABG pCO2 at Pt Temp ABG pO2 at Pt Temp ABG HCO3 ABG O2 Sat (Measured) ABG O2 Content ABG Base Excess Nate Test VBG pH 7.22 L* D POC VBG pCO2 75.0 H* D POC VBG pO2 22.5 L D Mixed VBG HCO3 29.3 H Methemoglobin O2 Delivery Device Oxygen Flow Rate Vent Mode Vent Rate Mechanical Rate Pressure Support Vent Sodium 151 H Potassium 5.1 Chloride 120 H Carbon Dioxide 29 Anion Gap 1 L BUN 73 H Creatinine 1.8 H Creat Clearance w eGFR 36.21 Random Glucose 111 H Lactic Acid Calcium 9.1 Total Bilirubin 0.3 AST 31 ALT 15 Alkaline Phosphatase 80 Creatine Kinase 141 CK-MB (CK-2) < 1.0 Troponin I 0.04 Total Protein 6.6 Albumin 2.4 L Urine Color Urine Appearance Urine pH Ur Specific Welches Urine Protein Urine Glucose (UA) Urine Ketones Urine Blood Urine Nitrite Urine Bilirubin Urine Urobilinogen Ur Leukocyte Esterase Urine WBC (Auto) Urine RBC (Auto) Hyaline Casts Urine Mucus Blood Type O POSITIVE Antibody Screen Negative 10/17/18 10/17/18 17:50 20:20 WBC RBC Hgb Hct MCV MCH MCHC RDW Plt Count MPV Absolute Neuts (auto) Neutrophils % Lymphocytes % Monocytes % Eosinophils % Basophils % Nucleated RBC % PT with INR INR PTT (Actin FS) Anticoagulation Therapy No Result Required. Puncture Site No Result Required. ABG pH 7.29 L ABG pCO2 at Pt Temp 55.8 H ABG pO2 at Pt Temp 41.8 L* ABG HCO3 26.1 H ABG O2 Sat (Measured) 73.6 L* ABG O2 Content 11.5 L ABG Base Excess -0.6 Nate Test Positive VBG pH POC VBG pCO2 POC VBG pO2 Mixed VBG HCO3 Methemoglobin 0.6 O2 Delivery Device No Result Required. Oxygen Flow Rate No Result Required. Vent Mode No Result Required. Vent Rate No Result Required. Mechanical Rate No Result Required. Pressure Support Vent No Result Required. Sodium Potassium Chloride Carbon Dioxide Anion Gap BUN Creatinine Creat Clearance w eGFR Random Glucose Lactic Acid 1.2 Calcium Total Bilirubin AST ALT Alkaline Phosphatase Creatine Kinase CK-MB (CK-2) Troponin I Total Protein Albumin Urine Color Urine Appearance Urine pH Ur Specific Welches Urine Protein Urine Glucose (UA) Urine Ketones Urine Blood Urine Nitrite Urine Bilirubin Urine Urobilinogen Ur Leukocyte Esterase Urine WBC (Auto) Urine RBC (Auto) Hyaline Casts Urine Mucus Blood Type Antibody Screen CT of abdomen/pelvis reviewed- colitis ekg- reviewed, no acute ischemic changes ASSESSMENT/PLAN: #Sepsis - likely from colitis. Lactate wnl. May be infectious, however should r/ o cdiff colitis given recent antibiotic adminstration -admit to med/surg -blood cultures x2 -urine culture -stool culture -stool wbc -stool for cdiff PCR -levaquin -metronidazole -ID evaluation -f/u official abd/pelvis CT read #Hypernatremia- likely from dehydration, free water deficit is about 2.3L. Hemodynamically stable -start 0.45% Nacl at 75cc/hr -trend Na -monitor closely -avoid diuretics -i/o -daily weights -lee catheter for accurate i/o #Hypothyroidism -c/w levothyroxine #Paroxysmal Afib on Xarelto -carvedilol -c/w xarelto 15mg daily (adjusted for cr clearance) #COPD -controlled -c/w tiotropium bromide #DVT ppx -on xarelto Visit type - Emergency Visit Emergency Visit: Yes ED Registration Date: 10/17/18 Care time: The patient presented to the Emergency Department on the above date and was hospitalized for further evaluation of their emergent condition. - New Patient This patient is new to me today: Yes Date on this admission: 10/18/18 - Critical Care Critical Care patient: No
[2018-10-17] MEDS: SODIUM CHLORIDE 0.45% 1,000 ML IV SCH (23:15)
[2018-10-18] MEDS: SODIUM CHLORIDE 0.45% 1,000 ML IV SCH ×2 (05:35→22:14)
[2018-10-18] MEDS ORDERED: HEPARIN NA (PORCINE) 5,000 UNITS/ML 1ML VIAL SQ SCH (06:00)
[2018-10-18] MEDS ORDERED: LEVOTHYROXINE SODIUM 100 MCG VIAL IVPUSH ONE (06:26)
[2018-10-18] MEDS: LEVOTHYROXINE NA 50 MCG TABLET (FP) PO SCH (06:26)
[2018-10-18 07:12] LABS: VENOUS PC02 59.8 mmHg (38-52); VENOUS PH 7.25 (7.32-7.42); VENOUS PO2 26.7 mmHg (28-48)
[2018-10-18] MEDS ORDERED: INSULIN (LEVEMIR) 100 UNITS/ML UNITS SQ ONE (07:14)
[2018-10-18] MEDS ORDERED: INSULIN (NOVOLOG) ASPART 100 UNITS/ML 10ML VIAL ONE (07:14)
--- NOTE | 2018-10-18 10:00 | EKG ---
Test Reason : Blood Pressure : / mmHG Vent. Rate : 124 BPM Atrial Rate : 086 BPM P-R Int : 000 ms QRS Dur : 072 ms QT Int : 286 ms P-R-T Axes : 000 005 005 degrees QTc Int : 410 ms ATRIAL FIBRILLATION WITH RAPID VENTRICULAR RESPONSE ABNORMAL ECG WHEN COMPARED WITH ECG OF 21-SEP-2018 18:04, NO SIGNIFICANT CHANGE WAS FOUND Confirmed by TRENTON PADRON MD ([id number]) on 10/18/2018 10:00:16 AM Referred By: Confirmed By:TRENTON PADRON MD
--- NOTE | 2018-10-18 10:27 | PN ---
Progress Note (short form) - Note Progress Note: ID Consult dictated Fever, possible sepsis secondary to GI source ( diverticulitis, biliary source, C difficile ) Toxic metabolic encephalopathy/ OBS Azotemia Hypernatremia Await sepsis w/u Check stool C difficile Empiric zosyn
[2018-10-18] MEDS: TAMSULOSIN HCL 0.4 MG CAP PO SCH (10:32)
[2018-10-18] MEDS: FERROUS SO4 300 MG/5 ML ORAL SOLN UNIT DOSE CUPS PO SCH ×2 (10:32→22:14)
[2018-10-18] MEDS: CARVEDILOL 25 MG TABLET (FP) PO SCH ×2 (10:32→22:14)
[2018-10-18] MEDS: FOLIC ACID 1 MG TABLET (FP) PO SCH (10:33)
[2018-10-18] MEDS: CALCIUM 500MG/VIT-D 200 UNITS COMBO TABLET (FP) PO SCH ×2 (10:33→22:14)
[2018-10-18] MEDS: TIOTROPIUM BROMIDE 2.5 MCG (SPIRIVA) RESPIMAT INHALER IH SCH (10:34)
[2018-10-18] MEDS ORDERED: PIPERACILLIN/TAZOBACTAM 2.25 GM VIAL IVPB ONE ×2 (10:44→17:22)
[2018-10-18] MEDS ORDERED: DEXTROSE 5%-WATER - 50 ML IVPB ONE ×2 (10:44→17:22)
[2018-10-18] MEDS: PIPERACILLIN/TAZOB 2.25 GM 2.25 GM in DEXTROSE 5%-WATER - 50 ML IVPB SCH ×2 (10:46→17:24)
--- NOTE | 2018-10-18 11:07 | CONS ---
DATE OF CONSULTATION: DATE OF DICTATION: 10/18/2018 HISTORY OF PRESENT ILLNESS: The patient is an 82-year-old male evaluated for sepsis. History was obtained from the chart as he cannot give a history secondary to dementia. He was admitted briefly to [facility] from September 21 to September 22 after presenting with loose stool, possible melena. At that time a CAT scan was performed and showed multiple sigmoid diverticula with a thickened sigmoid colon and adjacent pericolonic inflammatory stranding suggesting acute sigmoid diverticulitis. In addition he was noted to have choledocholithiasis with a common bile duct diameter of 1.1. He was discharged back to the longterm to complete a course of ciprofloxacin and Flagyl. The patient now returns with altered mental status, shortness of breath and loose bowel movements. According to the notes he had been increasingly lethargic, short of breath with loose bowel movements and malodorous urine. He was evaluated in the emergency room where his temperature was 102.5. Patient was placed on BiPAP with improvement in his respiratory status. Cultures were obtained. He was empirically treated with Levaquin and Flagyl. He is awake; however, not conversant. He offers no complaints. He is slightly short of breath at rest on BiPAP. The nursing staff reports that he has formed stool. No reports of cough, sputum production, vomiting or infected decubitus ulcers. PAST MEDICAL HISTORY: Positive for dementia, diverticulitis, atrial fibrillation, stroke, COPD, hypertension, diabetes, hyperlipidemia. ALLERGIES; No known allergies. MEDICATIONS: Lipitor; Coreg; Synthroid; Xarelto; Flomax. SOCIAL HISTORY: Resides in a assisted facility. Is dependent in activities of daily living. No active tobacco or alcohol use. SYSTEMS REVIEW:Neurologic: As per HPI. Cardiac: Negative chest pain or palpitations. Respiratory: As per HPI. Gastrointestinal: As per HPI. Genitourinary: Negative for urinary tract infection. LABORATORY DATA: White count 7.9, hematocrit 37.1, platelet count 261. BUN 73, creatinine 1.8, sodium 151. Urinalysis: White cells 3. Chest x-ray: Negative for acute infiltrate. CAT scan shows cardiomegaly, small bilateral pleural effusions, choledocholithiasis and inflammation of the rectosigmoid suggestive of focal colitis. PHYSICAL EXAMINATION: General: He is awake. He is not verbally responsive. Vital Signs: Temperature 98.1, T-max 102.5, blood pressure 103/58, pulse 80, regular, respirations 18 per minute. HEENT: Sclerae are anicteric. Cardiac: Heart sounds S1, S2. Lungs: Diminished breath sounds bilaterally. Abdomen: Distended, soft. No tenderness elicited. No mass, rebound or rigidity. No right upper quadrant or left lower quadrant tenderness. Extremities: Negative for edema. He has small blister-like areas on the heels bilaterally. They do not appear to be infected. IMPRESSION: 1. Fever, possible sepsis secondary to gastrointestinal source (diverticulitis), biliary source, Clostridium difficile. 2. Toxic metabolic encephalopathy/dementia. 3. Azotemia. 4. Hypernatremia. RECOMMENDATIONS: Await culture results. Obtain stool C difficile. Empiric coverage for possible diverticulitis versus biliary sepsis with Zosyn. Will follow. Thank you for the kind referral. TRENTON PAULA M.D. [id number]
[2018-10-18 12:21] LABS: BASO % 0.1 % (0-2.0); EOS % 0.1 % (0-4.5); HEMATOCRIT 32.4 % (35.4-49); HEMOGLOBIN 9.4 GM/dL (11.7-16.9); MEAN CELL VOLUME 117.4 fl (80-96); MEAN PLT VOLUME 9.6 fl (7.5-11.1); MONO % 4.1 % (3.8-10.2); NEUT % 88.7 % (42.8-82.8); PLATELET COUNT 167 K/MM3 (134-434); RBC 2.76 M/mm3 (4.00-5.60); RDW 19.4 % (11.9-15.9)
[2018-10-18] MEDS: MORPHINE SULFATE 2 MG/ML VIAL IVPUSH PRN (16:15)
[2018-10-18] MEDS: ENOXAPARIN NA (PORCINE) 40 MG/0.4 ML DISP.SYRIN SQ SCH (16:16)
[2018-10-18 16:57] LABS: HEMATOCRIT 31.7 % (35.4-49); HEMOGLOBIN 10.7 GM/dL (11.7-16.9); MCH 33.7 pg (25.7-33.7); MCHC 33.6 g/dl (32.0-35.9); MEAN CELL VOLUME 100.3 fl (80-96); MEAN PLT VOLUME 9.6 fl (7.5-11.1); PLATELET COUNT 204 K/MM3 (134-434); RBC 3.16 M/mm3 (4.00-5.60); RDW 16.7 % (11.9-15.9); WHITE BLOOD COUNT 7.6 K/mm3 (4.0-10.0)
[2018-10-18 17:14] LABS: ANION GAP 5 MMOL/L (8-16); BLOOD UREA NITROGEN 71 mg/dL (7-18); CALCIUM 7.8 mg/dL (8.5-10.1); CHLORIDE 123 mmol/L (98-107); CO2 24 mmol/L (21-32); CREATININE 1.6 mg/dL (0.55-1.3); GLUCOSE,RANDOM 128 mg/dL (74-106); POTASSIUM 4.6 mmol/L (3.5-5.1); SODIUM 152 mmol/L (136-145)
[2018-10-18] MEDS: RIVAROXABAN 15 MG TABLET PO SCH (17:21)
--- NOTE | 2018-10-18 18:34 | PN ---
Physical Exam: SUBJECTIVE: Patient seen and examined, sister, daughter, brother present. Family reports patient will have transient episodes of wincing and they believe he is in pain. wait staff reports patient unable to swallow PO medications. Seen by ID specialist Dr. Herr. OBJECTIVE: Vital Signs Period Temp Pulse Resp BP Sys/Gracia Pulse Ox Last 24 Hr 97 F-99.9 F 103-121 18-32 103-152/56-110 94-100 GENERAL: Awake, alert, nonverbal, on Bipap HEAD: Normal with no signs of trauma. EYES: Constricted pupils b/l EARS, NOSE, THROAT: Nares patent, oropharynx clear without exudates. Moist mucous membranes. NECK: Normal range of motion, supple without lymphadenopathy, JVD, or masses. LUNGS: Breath sounds equal, clear to auscultation bilaterally. No wheezes, and no crackles. No accessory muscle use. HEART: normal S1 and S2, tachycardia without murmur, rub or gallop. ABDOMEN: Soft, not distended, normoactive bowel sounds, mild guarding on palpation MUSCULOSKELETAL: Normal range of motion at all joints. No bony deformities or tenderness. No CVA tenderness. UPPER EXTREMITIES: 2+ pulses, warm, well-perfused. No cyanosis. No clubbing. No peripheral edema. LOWER EXTREMITIES: 2+ pulses, warm, well-perfused. No calf tenderness. No peripheral edema. PSYCHIATRIC: nonverbal SKIN: Warm, dry, normal turgor, no rashes or lesions noted, normal capillary refill. Laboratory Results - last 24 hr 10/17/18 10/17/18 10/17/18 17:50 17:50 17:50 WBC 7.9 RBC 3.69 L Hgb 12.3 Hct 37.1 MCV 100.5 H MCH 33.3 MCHC 33.1 RDW 16.9 H Plt Count 261 MPV 9.7 D Absolute Neuts (auto) 6.4 Neutrophils % 81.1 D Lymphocytes % 11.4 D Monocytes % 6.8 Eosinophils % 0.3 D Basophils % 0.4 Nucleated RBC % 0 PT with INR 15.10 H INR 1.28 H PTT (Actin FS) 26.7 Anticoagulation Therapy Puncture Site ABG pH ABG pCO2 at Pt Temp ABG pO2 at Pt Temp ABG HCO3 ABG O2 Sat (Measured) ABG O2 Content ABG Base Excess Nate Test VBG pH POC VBG pCO2 POC VBG pO2 Mixed VBG HCO3 Methemoglobin O2 Delivery Device Oxygen Flow Rate Vent Mode Vent Rate Mechanical Rate Pressure Support Vent Sodium Potassium Chloride Carbon Dioxide Anion Gap BUN Creatinine Creat Clearance w eGFR POC Glucometer Random Glucose Lactic Acid Calcium Total Bilirubin AST ALT Alkaline Phosphatase Creatine Kinase CK-MB (CK-2) Troponin I Total Protein Albumin TSH Urine Color Yellow Urine Appearance Slcloudy Urine pH 5.0 Ur Specific Bono 1.018 Urine Protein 1+ H Urine Glucose (UA) Negative Urine Ketones Negative Urine Blood 1+ H Urine Nitrite Negative Urine Bilirubin Negative Urine Urobilinogen Negative Ur Leukocyte Esterase Trace Urine WBC (Auto) 3 Urine RBC (Auto) 7 Hyaline Casts 8 Urine Mucus Rare Blood Type Antibody Screen 10/17/18 10/17/18 10/17/18 17:50 17:50 17:50 WBC RBC Hgb Hct MCV MCH MCHC RDW Plt Count MPV Absolute Neuts (auto) Neutrophils % Lymphocytes % Monocytes % Eosinophils % Basophils % Nucleated RBC % PT with INR INR PTT (Actin FS) Anticoagulation Therapy Puncture Site ABG pH ABG pCO2 at Pt Temp ABG pO2 at Pt Temp ABG HCO3 ABG O2 Sat (Measured) ABG O2 Content ABG Base Excess Nate Test VBG pH 7.22 L* D POC VBG pCO2 75.0 H* D POC VBG pO2 22.5 L D Mixed VBG HCO3 29.3 H Methemoglobin O2 Delivery Device Oxygen Flow Rate Vent Mode Vent Rate Mechanical Rate Pressure Support Vent Sodium 151 H Potassium 5.1 Chloride 120 H Carbon Dioxide 29 Anion Gap 1 L BUN 73 H Creatinine 1.8 H Creat Clearance w eGFR 36.21 POC Glucometer Random Glucose 111 H Lactic Acid Calcium 9.1 Total Bilirubin 0.3 AST 31 ALT 15 Alkaline Phosphatase 80 Creatine Kinase 141 CK-MB (CK-2) < 1.0 Troponin I 0.04 Total Protein 6.6 Albumin 2.4 L TSH Urine Color Urine Appearance Urine pH Ur Specific Bono Urine Protein Urine Glucose (UA) Urine Ketones Urine Blood Urine Nitrite Urine Bilirubin Urine Urobilinogen Ur Leukocyte Esterase Urine WBC (Auto) Urine RBC (Auto) Hyaline Casts Urine Mucus Blood Type O POSITIVE Antibody Screen Negative 10/17/18 10/17/18 10/18/18 17:50 20:20 07:00 WBC RBC Hgb Hct MCV MCH MCHC RDW Plt Count MPV Absolute Neuts (auto) Neutrophils % Lymphocytes % Monocytes % Eosinophils % Basophils % Nucleated RBC % PT with INR INR PTT (Actin FS) Anticoagulation Therapy No Result Required. Puncture Site No Result Required. ABG pH 7.29 L ABG pCO2 at Pt Temp 55.8 H ABG pO2 at Pt Temp 41.8 L* ABG HCO3 26.1 H ABG O2 Sat (Measured) 73.6 L* ABG O2 Content 11.5 L ABG Base Excess -0.6 Nate Test Positive VBG pH 7.25 L POC VBG pCO2 59.8 H D POC VBG pO2 26.7 L Mixed VBG HCO3 25.2 H Methemoglobin 0.6 O2 Delivery Device No Result Required. Oxygen Flow Rate No Result Required. Vent Mode No Result Required. Vent Rate No Result Required. Mechanical Rate No Result Required. Pressure Support Vent No Result Required. Sodium Potassium Chloride Carbon Dioxide Anion Gap BUN Creatinine Creat Clearance w eGFR POC Glucometer Random Glucose Lactic Acid 1.2 Calcium Total Bilirubin AST ALT Alkaline Phosphatase Creatine Kinase CK-MB (CK-2) Troponin I Total Protein Albumin TSH Urine Color Urine Appearance Urine pH Ur Specific Bono Urine Protein Urine Glucose (UA) Urine Ketones Urine Blood Urine Nitrite Urine Bilirubin Urine Urobilinogen Ur Leukocyte Esterase Urine WBC (Auto) Urine RBC (Auto) Hyaline Casts Urine Mucus Blood Type Antibody Screen 10/18/18 10/18/18 10/18/18 07:09 11:03 11:05 WBC 5.0 RBC 2.76 L Hgb 9.4 L Hct 32.4 L MCV 117.4 H D MCH 34.0 H MCHC 29.0 L RDW 19.4 H Plt Count 167 D MPV 9.6 Absolute Neuts (auto) 4.4 Neutrophils % 88.7 H Lymphocytes % 7.0 L D Monocytes % 4.1 Eosinophils % 0.1 Basophils % 0.1 Nucleated RBC % 0 PT with INR INR PTT (Actin FS) Anticoagulation Therapy Puncture Site ABG pH ABG pCO2 at Pt Temp ABG pO2 at Pt Temp ABG HCO3 ABG O2 Sat (Measured) ABG O2 Content ABG Base Excess Nate Test VBG pH POC VBG pCO2 POC VBG pO2 Mixed VBG HCO3 Methemoglobin O2 Delivery Device Oxygen Flow Rate Vent Mode Vent Rate Mechanical Rate Pressure Support Vent Sodium Cancelled Potassium Cancelled Chloride Cancelled Carbon Dioxide Cancelled Anion Gap Cancelled BUN Cancelled Creatinine Cancelled Creat Clearance w eGFR Cancelled POC Glucometer 123 Random Glucose Cancelled Lactic Acid Calcium Cancelled Total Bilirubin AST ALT Alkaline Phosphatase Creatine Kinase CK-MB (CK-2) Troponin I Total Protein Albumin TSH Cancelled Urine Color Urine Appearance Urine pH Ur Specific Bono Urine Protein Urine Glucose (UA) Urine Ketones Urine Blood Urine Nitrite Urine Bilirubin Urine Urobilinogen Ur Leukocyte Esterase Urine WBC (Auto) Urine RBC (Auto) Hyaline Casts Urine Mucus Blood Type Antibody Screen 10/18/18 10/18/18 10/18/18 11:38 16:27 16:27 WBC 7.6 RBC 3.16 L Hgb 10.7 L Hct 31.7 L MCV 100.3 H MCH 33.7 MCHC 33.6 RDW 16.7 H Plt Count 204 D MPV 9.6 Absolute Neuts (auto) Neutrophils % Lymphocytes % Monocytes % Eosinophils % Basophils % Nucleated RBC % PT with INR INR PTT (Actin FS) Anticoagulation Therapy Puncture Site ABG pH ABG pCO2 at Pt Temp ABG pO2 at Pt Temp ABG HCO3 ABG O2 Sat (Measured) ABG O2 Content ABG Base Excess Nate Test VBG pH POC VBG pCO2 POC VBG pO2 Mixed VBG HCO3 Methemoglobin O2 Delivery Device Oxygen Flow Rate Vent Mode Vent Rate Mechanical Rate Pressure Support Vent Sodium 152 H Potassium 4.6 Chloride 123 H Carbon Dioxide 24 Anion Gap 5 L BUN 71 H Creatinine 1.6 H Creat Clearance w eGFR 41.49 POC Glucometer 133 Random Glucose 128 H Lactic Acid Calcium 7.8 L Total Bilirubin AST ALT Alkaline Phosphatase Creatine Kinase CK-MB (CK-2) Troponin I Total Protein Albumin TSH Urine Color Urine Appearance Urine pH Ur Specific Bono Urine Protein Urine Glucose (UA) Urine Ketones Urine Blood Urine Nitrite Urine Bilirubin Urine Urobilinogen Ur Leukocyte Esterase Urine WBC (Auto) Urine RBC (Auto) Hyaline Casts Urine Mucus Blood Type Antibody Screen 10/18/18 17:27 WBC RBC Hgb Hct MCV MCH MCHC RDW Plt Count MPV Absolute Neuts (auto) Neutrophils % Lymphocytes % Monocytes % Eosinophils % Basophils % Nucleated RBC % PT with INR INR PTT (Actin FS) Anticoagulation Therapy Puncture Site ABG pH ABG pCO2 at Pt Temp ABG pO2 at Pt Temp ABG HCO3 ABG O2 Sat (Measured) ABG O2 Content ABG Base Excess Nate Test VBG pH POC VBG pCO2 POC VBG pO2 Mixed VBG HCO3 Methemoglobin O2 Delivery Device Oxygen Flow Rate Vent Mode Vent Rate Mechanical Rate Pressure Support Vent Sodium Potassium Chloride Carbon Dioxide Anion Gap BUN Creatinine Creat Clearance w eGFR POC Glucometer 120 Random Glucose Lactic Acid Calcium Total Bilirubin AST ALT Alkaline Phosphatase Creatine Kinase CK-MB (CK-2) Troponin I Total Protein Albumin TSH Urine Color Urine Appearance Urine pH Ur Specific Bono Urine Protein Urine Glucose (UA) Urine Ketones Urine Blood Urine Nitrite Urine Bilirubin Urine Urobilinogen Ur Leukocyte Esterase Urine WBC (Auto) Urine RBC (Auto) Hyaline Casts Urine Mucus Blood Type Antibody Screen Active Medications Generic Name Dose Route Start Last Admin Trade Name Freq PRN Reason Stop Dose Admin Atorvastatin Calcium 20 mg 10/18/18 22:00 Lipitor - PO [facility] Calcium Carbonate/Cholecalciferol 1 tab 10/18/18 10:00 10/18/18 10:33 Os-Doroteo 500+D - PO Not Given BID [facility] Carvedilol 25 mg 10/18/18 10:00 10/18/18 10:32 Coreg - PO Not Given BID [facility] Enoxaparin Sodium 40 mg 10/18/18 16:00 10/18/18 16:16 Lovenox - SQ 40 mg DAILY [facility] Administration Ferrous Sulfate 300 mg 10/18/18 10:00 10/18/18 10:32 Feosol PO Not Given BID [facility] Folic Acid 1 mg 10/18/18 10:00 10/18/18 10:33 Folic Acid - PO Not Given DAILY [facility] Sodium Chloride 1,000 mls @ 75 mls/hr 10/17/18 23:00 10/18/18 05:35 1/2 Normal Saline IV 75 mls/hr ASDIR FELIPE Administration Piperacillin Sod/Tazobactam 50 mls @ 100 mls/hr 10/18/18 10:45 10/18/18 17:24 Sod 2.25 gm/ Dextrose IVPB 100 mls/hr Q8H-IV FELIPE Administration Protocol Levothyroxine Sodium 50 mcg 10/18/18 07:00 10/18/18 06:26 Synthroid - PO Not Given DAILY@0700 [facility] Morphine Sulfate 1 mg 10/18/18 15:49 10/18/18 16:15 Morphine Sulfate IVPUSH 1 mg Q6H PRN Administration PAIN LEVEL 6-10 Rivaroxaban 15 mg 10/18/18 18:00 10/18/18 17:21 Xarelto - PO Not Given DAILY@1800 [facility] Tamsulosin HCl 0.4 mg 10/18/18 08:30 10/18/18 10:32 Flomax - PO Not Given DAILY@0830 [facility] Tiotropium Arnot 2 puff 10/18/18 10:00 10/18/18 10:34 Spiriva Respimat IH Not Given DAILY [facility] CT of abdomen/pelvis - Focal recto-sigmoid colitis - b/l pleural infiltrates EKG- reviewed, no acute ischemic changes ASSESSMENT/PLAN: 82 year old male with a PMH significant for vascular dementia, CVA (R hemiplegia bedbound, aphasic), A-fib (on Xarelto), diverticulitis, hypothyroidism, COPD, recently treated at [facility] for colitis, presented to the ED with multiple episodes of diarrhea and increased lethargic from [facility]. In the ED, he was found to have fever and tachycardia. CT of abdomen/ pelvis showed colitis. He was given a dose of Zosyn and IV fluids. Admitted for further work up. Sepsis - Likely secondary to GI source (diverticulitis, biliary source, C difficile) - Recently on antibiotics - Now with low grade temp of 99 - Seen by ID specialist Dr. Herr - Started on empiric Zosyn - Stool, blood, and urine culture pending - Stool wbc and c-diff PCR pending Toxic metabolic encephalopathy/ OBS Azotemia - BUN/Cr 73/1.8 ->71/1.6 - Baseline BUN 20-30s - Baseline Cr 1.1 - Monitor BMP - Renal dosing for medications - Consider renal consult - On IV fluids Hypernatremia - Likely from dehydration - free water deficit is about 2.3 L - Hemodynamically stable - Monitor BMP - Avoid diuretics - I&Os - daily weights Hypothyroidism - Hold PO med levothyroxine Paroxysmal A-fib - Hold home PO meds: 15mg daily (adjusted for cr clearance) and Carvedolol - Start SQ Lovenox 40 mg qday - Monitor pulse and consider IV betablocker until off NPO COPD - On Bipap - Pulmonology consult ordered - Continue Tiotropium bromide Prophylaxis - DVT: Lovenox SQ FEN - 0.45% Nacl @ 75cc/hr - - Replete as indicated - NPO for now Visit type - Emergency Visit Emergency Visit: No - New Patient This patient is new to me today: Yes Date on this admission: 10/18/18 - Critical Care Critical Care patient: No
[2018-10-18] MEDS: ATORVASTATIN CA 20 MG TABLET (FP) PO SCH (22:14)
[2018-10-19] MEDS ORDERED: DEXTROSE 5%-WATER - 50 ML IVPB ONE ×3 (01:40→17:31)
[2018-10-19] MEDS ORDERED: PIPERACILLIN/TAZOBACTAM 2.25 GM VIAL IVPB ONE ×3 (01:40→17:30)
[2018-10-19] MEDS: MORPHINE SULFATE 2 MG/ML VIAL IVPUSH PRN ×2 (02:02→13:28)
[2018-10-19] MEDS: PIPERACILLIN/TAZOB 2.25 GM 2.25 GM in DEXTROSE 5%-WATER - 50 ML IVPB SCH ×3 (02:03→17:52)
[2018-10-19] MEDS: LEVOTHYROXINE NA 50 MCG TABLET (FP) PO SCH (06:21)
[2018-10-19] MEDS: TAMSULOSIN HCL 0.4 MG CAP PO SCH (08:30)
[2018-10-19 09:26] LABS: ANION GAP 8 MMOL/L (8-16); BLOOD UREA NITROGEN 74 mg/dL (7-18); CALCIUM 7.9 mg/dL (8.5-10.1); CHLORIDE 124 mmol/L (98-107); CO2 22 mmol/L (21-32); CREATININE 1.8 mg/dL (0.55-1.3); GLUCOSE,RANDOM 112 mg/dL (74-106); HEMOGLOBIN 10.8 GM/dL (11.7-16.9); MAGNESIUM 2.2 mg/dL (1.8-2.4); MCH 33.5 pg (25.7-33.7); MCHC 33.6 g/dl (32.0-35.9); MEAN CELL VOLUME 99.8 fl (80-96); PLATELET COUNT 208 K/MM3 (134-434); POTASSIUM 4.5 mmol/L (3.5-5.1); RBC 3.21 M/mm3 (4.00-5.60); RDW 16.7 % (11.9-15.9); SODIUM 155 mmol/L (136-145)
[2018-10-19] MEDS: ENOXAPARIN NA (PORCINE) 40 MG/0.4 ML DISP.SYRIN SQ SCH (10:00)
[2018-10-19] MEDS: TIOTROPIUM BROMIDE 2.5 MCG (SPIRIVA) RESPIMAT INHALER IH SCH (10:00)
[2018-10-19] MEDS: FOLIC ACID 1 MG TABLET (FP) PO SCH (10:00)
[2018-10-19] MEDS: CALCIUM 500MG/VIT-D 200 UNITS COMBO TABLET (FP) PO SCH ×2 (10:00→22:03)
[2018-10-19] MEDS: FERROUS SO4 300 MG/5 ML ORAL SOLN UNIT DOSE CUPS PO SCH ×2 (10:00→22:02)
[2018-10-19] MEDS: CARVEDILOL 25 MG TABLET (FP) PO SCH ×2 (10:00→22:02)
--- NOTE | 2018-10-19 10:48 | CONSULT ---
Consult - text type - Consultation Consultation Note: Renal Consult for MARIANO This is a 82 year old gentleman with hx of vascular dementia, diverticulitis, afib on A/C, hypothyroidism, CVA, COPD who [place] and found to have MARIANO and dehydration. Pt is on bipap and unable to provide any further history. No diarrhea since he has been in the hosptial as per nurse. no overnight events. PMhx: as above Allergies: NKDA Family hx: NC Social hx: unable to obtain ROS: unable to obtain because of clinical status Home Medications Medication Instructions Recorded Calcium Carbonate/Vitamin D3 1 each PO BID 05/13/13 [Oyster Shell Calcium 500+D Tab] Carvedilol 25 mg PO BID 05/13/13 Docusate Sodium [Colace] 100 mg PO HS 05/13/13 Folic Acid 1 mg PO DAILY 05/13/13 Levothyroxine [Synthroid] 50 mcg PO DAILY 05/13/13 Na Phos,M-B/Na Phos,Di-Ba [Fleet 118 ml RC DAILY PRN 05/13/13 Enema] Sennosides [Senna] 8.6 mg PO HS 05/13/13 Simvastatin [Zocor] 40 mg PO HS 05/13/13 Warfarin Sodium [Coumadin] 2 mg PO HS 05/13/13 Ferrous Sulfate 60 mg PO BID 09/21/18 Magnesium Hydroxide [Milk of 30 ml PO PRN PRN 09/21/18 Magnesia] Tamsulosin HCl [Flomax] 0.4 mg PO DAILY 09/21/18 Tiotropium [place] [Spiriva] 18 mcg IH DAILY 09/21/18 Vital Signs Temperature 97.8 F 10/19/18 02:16 Pulse Rate 116 H 10/19/18 02:16 Respiratory Rate 18 10/19/18 02:16 Blood Pressure 110/68 10/19/18 02:16 O2 Sat by Pulse Oximetry (%) 98 10/19/18 06:43 Intake & Output 10/16/18 10/17/18 10/18/18 10/19/18 23:59 23:59 23:59 23:59 Intake Total 1125 875 Output Total 125 1300 400 Balance -125 -175 475 Weight 65 kg 70.806 kg 70.307 kg NAD awake and alert on bipap DRy MM, no JVD RRR CTA soft NT/ND trace LE edmea on left LE CBC, BMP 10/19/18 08:00 10/19/18 08:00 Laboratory Tests 10/17/18 10/19/18 17:50 08:00 Calcium 7.9 L Magnesium 2.2 TSH 2.21 Urine Protein 1+ H Urine Blood 1+ H Urine WBC (Auto) 3 Urine RBC (Auto) 7 Current Medications Atorvastatin Calcium (Lipitor -) 20 mg PO HS [facility] Last Admin: 10/18/18 22:14 Dose: Not Given Calcium Carbonate/Cholecalciferol (Os-Doroteo 500+D -) 1 tab PO BID [facility] Last Admin: 10/18/18 22:14 Dose: Not Given Carvedilol (Coreg -) 25 mg PO BID [facility] Last Admin: 10/18/18 22:14 Dose: Not Given Enoxaparin Sodium (Lovenox -) 40 mg SQ DAILY [facility] Last Admin: 10/18/18 16:16 Dose: 40 mg Ferrous Sulfate (Feosol) 300 mg PO BID [facility] Last Admin: 10/18/18 22:14 Dose: Not Given Folic Acid (Folic Acid -) 1 mg PO DAILY [facility] Last Admin: 10/18/18 10:33 Dose: Not Given Sodium Chloride (1/2 Normal Saline) 1,000 mls @ 75 mls/hr IV ASDIR [facility] Last Admin: 10/18/18 22:14 Dose: 75 mls/hr Piperacillin Sod/Tazobactam (Sod 2.25 gm/ Dextrose) 50 mls @ 100 mls/hr IVPB Q8H-IV [facility]; Protocol Last Admin: 10/19/18 02:03 Dose: 100 mls/hr Levothyroxine Sodium (Synthroid -) 50 mcg PO DAILY@0700 [facility] Last Admin: 10/19/18 06:21 Dose: Not Given Morphine Sulfate (Morphine Sulfate) 1 mg IVPUSH Q6H PRN PRN Reason: PAIN LEVEL 6-10 Last Admin: 10/19/18 02:02 Dose: 1 mg Rivaroxaban (Xarelto -) 15 mg PO DAILY@1800 [facility] Last Admin: 10/18/18 17:21 Dose: Not Given Tamsulosin HCl (Flomax -) 0.4 mg PO DAILY@0830 [facility] Last Admin: 10/18/18 10:32 Dose: Not Given Tiotropium [place] (Spiriva Respimat) 2 puff IH DAILY [facility] Last Admin: 10/18/18 10:34 Dose: Not Given 82 year old gentleman with hx of vascular dementia, diverticulitis, afib on A/C , hypothyroidism, CVA, COPD who presented with [place]argy and [place] and found to have MARIANO and dehydration. #MARIANO likely due to volume depletion in setting of diarrhea (baseline Cr 1.2) #Hypernatremia (water deficit is 4.45L) #Diarrhea #Anemia at this time would continue 1/2 NS at moderate rate (cautious with aggressive IVF given cardiomegaly on CXR and possible underlying cardiomyopathy) would monitor serial CXRs in AM to monitor pleural effusions, if worsening on IVF would change to D5W so as to minimize salt infusion trend serum Na Q12h goal rate of improvement ~8 in 24 hours oral water as tolerated would avoid standing diuretics but if needed can give IV lasix for effusions or respiratory distress continue abx for diarrhea/colitis Thank you Will follow Mohit Vizcaino DO
--- NOTE | 2018-10-19 12:40 | PN ---
Progress Note, Physician Chief Complaint: lethargic moaning in pain on bipap was recently on Flagyl in [place] for cdiff - Current Medication List Current Medications: Active Medications Atorvastatin Calcium (Lipitor -) 20 mg PO HS [facility] Last Admin: 10/18/18 22:14 Dose: Not Given Calcium Carbonate/Cholecalciferol (Os-Doroteo 500+D -) 1 tab PO BID [facility] Last Admin: 10/19/18 10:00 Dose: Not Given Carvedilol (Coreg -) 25 mg PO BID [facility] Last Admin: 10/19/18 10:00 Dose: Not Given Enoxaparin Sodium (Lovenox -) 40 mg SQ DAILY [facility] Last Admin: 10/19/18 10:00 Dose: 40 mg Ferrous Sulfate (Feosol) 300 mg PO BID [facility] Last Admin: 10/19/18 10:00 Dose: Not Given Folic Acid (Folic Acid -) 1 mg PO DAILY [facility] Last Admin: 10/19/18 10:00 Dose: Not Given Sodium Chloride (1/2 Normal Saline) 1,000 mls @ 75 mls/hr IV ASDIR [facility] Last Admin: 10/18/18 22:14 Dose: 75 mls/hr Piperacillin Sod/Tazobactam (Sod 2.25 gm/ Dextrose) 50 mls @ 100 mls/hr IVPB Q8H-IV [facility]; Protocol Last Admin: 10/19/18 10:00 Dose: 100 mls/hr Levothyroxine Sodium (Synthroid -) 50 mcg PO DAILY@0700 [facility] Last Admin: 10/19/18 06:21 Dose: Not Given Morphine Sulfate (Morphine Sulfate) 1 mg IVPUSH Q6H PRN PRN Reason: PAIN LEVEL 6-10 Last Admin: 10/19/18 02:02 Dose: 1 mg Rivaroxaban (Xarelto -) 15 mg PO DAILY@1800 [facility] Last Admin: 10/18/18 17:21 Dose: Not Given Tamsulosin HCl (Flomax -) 0.4 mg PO DAILY@0830 [facility] Last Admin: 10/19/18 08:30 Dose: Not Given Tiotropium Malcom (Spiriva Respimat) 2 puff IH DAILY [facility] Last Admin: 10/19/18 10:00 Dose: Not Given - Objective Vital Signs: Vital Signs Temperature 97.8 F 10/19/18 02:16 Pulse Rate 116 H 10/19/18 02:16 Respiratory Rate 18 10/19/18 02:16 Blood Pressure 110/68 10/19/18 02:16 O2 Sat by Pulse Oximetry (%) 98 10/19/18 06:43 Constitutional: Yes: Moderate Distress Cardiovascular: Yes: Pulse Irregular Respiratory: Yes: Diminished, On BiPap Gastrointestinal: Yes: Normal Bowel Sounds, Soft, Tenderness Edema: No Labs: CBC, BMP 10/19/18 08:00 10/19/18 08:00 INR, PTT INR 1.28 (0.83-1.09) H 10/17/18 17:50 Problem List - Problems (1) Acute respiratory failure with hypoxia and hypercapnia Code(s): J96.01 - ACUTE RESPIRATORY FAILURE WITH HYPOXIA; J96.02 - ACUTE RESPIRATORY FAILURE WITH HYPERCAPNIA (2) Atrial fibrillation with RVR Code(s): I48.91 - UNSPECIFIED ATRIAL FIBRILLATION (3) Colitis Code(s): K52.9 - NONINFECTIVE GASTROENTERITIS AND COLITIS, UNSPECIFIED (4) Hypernatremia Code(s): E87.0 - HYPEROSMOLALITY AND HYPERNATREMIA (5) Sepsis Code(s): A41.9 - SEPSIS, UNSPECIFIED ORGANISM Qualifiers: Sepsis type: sepsis due to unspecified organism Qualified Code(s): A41.9 - Sepsis, unspecified organism Assessment/Plan PLAN NPO Iv fluids iv antibiotics per ID Pulmonary eval monitor renal function check stool studies CT abd noted one blood culture positive
[2018-10-19 12:45] LABS: URINE APPEARANCE CLEAR; URINE BILIRUBIN NEGATIVE (<2.0 mg/dL); URINE COLOR YELLOW; URINE GLUCOSE (UA) NEGATIVE (NEGATIVE); URINE KETONE NEGATIVE (NEGATIVE); URINE LEUK ESTERASE TRACE (NEGATIVE); URINE NITRITE NEGATIVE (NEGATIVE); URINE PROTEIN 1+ (NEGATIVE); URINE UROBILINOGEN NEGATIVE mg/dL (0.2-1.0)
--- NOTE | 2018-10-19 12:48 | CON.PULM ---
Consult Consult Specialty:: PULMONARY Referred by:: Dr. Hall Reason for Consultation:: respiratory failure - History of Present Illness Chief Complaint: altered mental status History of Present Illness: 82yo male with h/o atrial fibrillation, CVA, hypothyroidism, COPD, vascular dementia, recent colitis who [facility] increasing [facility]argy. Reportedly having multiple episodes of diarrhea. Febrile and tachycardic on presentation with ABG showing acute respiratory acidosis and subsequently placed on BiPAP. Pt currently unable to provide further history at this time. - History Source History Provided By: Medical Record Limitations to Obtaining History: Clinical Condition - Past Medical History [employer]: Yes: CVA, Dementia Cardio/Vascular: Yes: AFIB Pulmonary: Yes: COPD Endocrine: Yes: Hypothyroidism - Alcohol/Substance Use Hx Alcohol Use: No - Smoking History Smoking history: Unknown if ever smoked Have you smoked in the past 12 months: No Aproximately how many cigarettes per day: 0 Home Medications - Allergies Allergies/Adverse Reactions: Allergies Allergy/AdvReac Type Severity Reaction Status Date / Time No Known Allergies Allergy Verified 10/17/18 20:05 - Home Medications Home Medications: Ambulatory Orders Calcium Carbonate/Vitamin D3 [Oyster Shell Calcium 500+D Tab] 1 each PO BID Carvedilol 25 mg PO BID 05/13/13 Docusate Sodium [Colace] 100 mg PO HS 05/13/13 Folic Acid 1 mg PO DAILY 05/13/13 Levothyroxine [Synthroid] 50 mcg PO DAILY 05/13/13 Na Phos,M-B/Na Phos,Di-Ba [Fleet Enema] 118 ml RC DAILY PRN 05/13/13 Sennosides [Senna] 8.6 mg PO HS 05/13/13 Simvastatin [Zocor] 40 mg PO HS 05/13/13 Warfarin Sodium [Coumadin] 2 mg PO HS 05/13/13 Ferrous Sulfate 60 mg PO BID 09/21/18 Magnesium Hydroxide [Milk of Magnesia] 30 ml PO PRN PRN 09/21/18 Tamsulosin HCl [Flomax] 0.4 mg PO DAILY 09/21/18 Tiotropium [place] [Spiriva] 18 mcg IH DAILY 09/21/18 Review of Systems Unable to obtain ROS, reason: pt on biPAP Physical Exam Vital Sings: Vital Signs Temperature 97.8 F 10/19/18 02:16 Pulse Rate 116 H 10/19/18 02:16 Respiratory Rate 18 10/19/18 02:16 Blood Pressure 110/68 10/19/18 02:16 O2 Sat by Pulse Oximetry (%) 98 10/19/18 06:43 Constitutional: Yes: Mild Distress Eyes: Yes: Conjunctiva Clear, EOM Intact HENT: Yes: Atraumatic, Normocephalic Neck: Yes: Supple, Trachea Midline Cardiovascular: Yes: Pulse Irregular Respiratory: Yes: Diminished (distant breath sounds) ...Clubbing: No Gastrointestinal: Yes: Normal Bowel Sounds, Soft. No: Tenderness Edema: No Labs: CBC, BMP 10/19/18 08:00 10/19/18 08:00 ABG Results ABG pH 7.29 (7.35-7.45) L 10/17/18 20:20 ABG pCO2 at Pt Temp 55.8 mmHg (35-45) H 10/17/18 20:20 ABG pO2 at Pt Temp 41.8 mmHg (68-100) L* 10/17/18 20:20 ABG HCO3 26.1 meq/L (22-26) H 10/17/18 20:20 ABG O2 Sat (Measured) 73.6 % (90-98.9) L* 10/17/18 20:20 ABG O2 Content 11.5 % vol (15-22) L 10/17/18 20:20 ABG Base Excess -0.6 meq/l (-2-2) 10/17/18 20:20 Imaging - Results Chest X-ray: Report Reviewed, Image Reviewed Cat Scan: Report Reviewed, Image Reviewed Problem List - Problems (1) Colitis Code(s): K52.9 - NONINFECTIVE GASTROENTERITIS AND COLITIS, UNSPECIFIED (2) Sepsis Code(s): A41.9 - SEPSIS, UNSPECIFIED ORGANISM Qualifiers: Sepsis type: sepsis due to unspecified organism Qualified Code(s): A41.9 - Sepsis, unspecified organism (3) Atrial fibrillation with RVR Code(s): I48.91 - UNSPECIFIED ATRIAL FIBRILLATION (4) Acute respiratory failure with hypoxia and hypercapnia Code(s): J96.01 - ACUTE RESPIRATORY FAILURE WITH HYPOXIA; J96.02 - ACUTE RESPIRATORY FAILURE WITH HYPERCAPNIA (5) COPD with acute exacerbation Code(s): J44.1 - CHRONIC OBSTRUCTIVE PULMONARY DISEASE W (ACUTE) EXACERBATION Assessment/Plan Acute Hypoxic and Hypercapneic Respiratory Failure Acute Colitis Severe Sepsis Acute COPD Exacerbation Atrial Fibrillation with RVR Acute Kidney Injury Hypernatremia h/o CVA Hypothyroidism Dementia - continue antibiotics per ID - f/u cultures - IVF resuscitation - monitor urine output, creatinine - will start medrol - inhaled bronchodilators - BiPAP to assist in work of breathing - monitor ABG - rate control - continue anticoagulation - may need monitored unit if repeat ABG showing worsening acidosis Thank you for this consult Brendan Crocker MD
[2018-10-19] MEDS ORDERED: ALBUTEROL SO4 0.083% IH SOL 2.5 MG/3 ML VIAL.NEB. NEB PRN (12:54)
--- NOTE | 2018-10-19 13:21 | PN ---
Progress Note, Physician History of Present Illness: Awake, not verbally responsive On Bipap Temps down WBC WNL BC GPCCL x 1 bottle - Current Medication List Current Medications: Active Medications Albuterol Sulfate (Ventolin 0.083% Nebulizer Soln -) 1 amp NEB Q4H PRN PRN Reason: SHORT OF BREATH/WHEEZING Albuterol/Ipratropium (Duoneb -) 1 amp NEB RQID [facility] Atorvastatin Calcium (Lipitor -) 20 mg PO HS [facility] Last Admin: 10/18/18 22:14 Dose: Not Given Calcium Carbonate/Cholecalciferol (Os-Doroteo 500+D -) 1 tab PO BID [facility] Last Admin: 10/19/18 10:00 Dose: Not Given Carvedilol (Coreg -) 25 mg PO BID [facility] Last Admin: 10/19/18 10:00 Dose: Not Given Ferrous Sulfate (Feosol) 300 mg PO BID [facility] Last Admin: 10/19/18 10:00 Dose: Not Given Folic Acid (Folic Acid -) 1 mg PO DAILY [facility] Last Admin: 10/19/18 10:00 Dose: Not Given Sodium Chloride (1/2 Normal Saline) 1,000 mls @ 75 mls/hr IV ASDIR [facility] Last Admin: 10/18/18 22:14 Dose: 75 mls/hr Piperacillin Sod/Tazobactam (Sod 2.25 gm/ Dextrose) 50 mls @ 100 mls/hr IVPB Q8H-IV [facility]; Protocol Last Admin: 10/19/18 10:00 Dose: 100 mls/hr Levothyroxine Sodium (Synthroid -) 50 mcg PO DAILY@0700 [facility] Last Admin: 10/19/18 06:21 Dose: Not Given Methylprednisolone Sodium Succinate (Solu-Medrol -) 40 mg IVPUSH Q8H-IV [facility] Morphine Sulfate (Morphine Sulfate) 1 mg IVPUSH Q6H PRN PRN Reason: PAIN LEVEL 6-10 Last Admin: 10/19/18 02:02 Dose: 1 mg Rivaroxaban (Xarelto -) 15 mg PO DAILY@1800 [facility] Last Admin: 10/18/18 17:21 Dose: Not Given Tamsulosin HCl (Flomax -) 0.4 mg PO DAILY@0830 [facility] Last Admin: 10/19/18 08:30 Dose: Not Given - Objective Vital Signs: Vital Signs Temperature 97.8 F 10/19/18 02:16 Pulse Rate 116 H 10/19/18 02:16 Respiratory Rate 18 10/19/18 02:16 Blood Pressure 110/68 10/19/18 02:16 O2 Sat by Pulse Oximetry (%) 98 10/19/18 06:43 Constitutional: Yes: No Distress Cardiovascular: Yes: Regular Rate and Rhythm, Tachycardia, S1, S2 Respiratory: Yes: Diminished Gastrointestinal: Yes: Normal Bowel Sounds, Soft. No: Tenderness Labs: CBC, BMP 10/19/18 08:00 10/19/18 08:00 INR, PTT INR 1.28 (0.83-1.09) H 10/17/18 17:50 Assessment/Plan Fever ? GI source ( diverticulitis/ GB) +BC GPCCL Toxic metabolic encephalopathy/ OBS Azotemia Repeat BC Vancomycin x 1 dose Continue zosyn
[2018-10-19] MEDS ORDERED: VANCOMYCIN 1 GRAM (PRE-DOCKED) 1,000 MG/250 ML BAG IVPB ONE (13:23)
[2018-10-19] MEDS: methylPREDNISolone NA SUCC 40 MG/1 ML VIAL IVPUSH SCH ×2 (13:28→17:53)
[2018-10-19 14:04] LABS: URINE MUCUS RARE
[2018-10-19 14:56] LABS: ARTERIAL BLD GAS O2 SATURATION 98.9 % (90-98.9); ARTERIAL BLOOD GAS PCO2 39.8 mmHg (35-45); ARTERIAL BLOOD GAS pH 7.34 (7.35-7.45)
[2018-10-19 14:57] LABS: ALLENS TEST POSITIVE
[2018-10-19] MEDS: ALBUTEROL SO4 2.5/IPRATROPIUM 0.5 INH SOL 3 ML VIAL.NEB. NEB SCH ×2 (15:45→20:46)
[2018-10-19] MEDS: RIVAROXABAN 15 MG TABLET PO SCH (18:00)
[2018-10-19 19:29] LABS: ANION GAP 8 MMOL/L (8-16); BLOOD UREA NITROGEN 73 mg/dL (7-18); CALCIUM 7.8 mg/dL (8.5-10.1); CHLORIDE 123 mmol/L (98-107); CO2 21 mmol/L (21-32); CREATININE 1.7 mg/dL (0.55-1.3); GLUCOSE,RANDOM 170 mg/dL (74-106); POTASSIUM 4.8 mmol/L (3.5-5.1); SODIUM 152 mmol/L (136-145)
[2018-10-19] MEDS: ATORVASTATIN CA 20 MG TABLET (FP) PO SCH (22:02)
[2018-10-20] MEDS: SODIUM CHLORIDE 0.45% 1,000 ML IV SCH ×2 (00:26→06:09)
[2018-10-20] MEDS ORDERED: DEXTROSE 5%-WATER - 50 ML IVPB ONE ×3 (01:55→17:56)
[2018-10-20] MEDS ORDERED: PIPERACILLIN/TAZOBACTAM 2.25 GM VIAL IVPB ONE ×3 (01:55→17:56)
[2018-10-20] MEDS: PIPERACILLIN/TAZOB 2.25 GM 2.25 GM in DEXTROSE 5%-WATER - 50 ML IVPB SCH ×3 (01:57→18:17)
[2018-10-20] MEDS: methylPREDNISolone NA SUCC 40 MG/1 ML VIAL IVPUSH SCH ×3 (01:57→18:26)
[2018-10-20] MEDS: LEVOTHYROXINE NA 50 MCG TABLET (FP) PO SCH (06:08)
[2018-10-20] MEDS ORDERED: INSULIN (NOVOLOG) ASPART 100 UNITS/ML 10ML VIAL ONE (06:42)
[2018-10-20] MEDS: ALBUTEROL SO4 2.5/IPRATROPIUM 0.5 INH SOL 3 ML VIAL.NEB. NEB SCH ×4 (07:55→19:20)
[2018-10-20] MEDS: TAMSULOSIN HCL 0.4 MG CAP PO SCH (08:30)
--- NOTE | 2018-10-20 08:42 | PN ---
Progress Note (short form) - Note Progress Note: Renal follow up for MARIANO Pt seen and examined at the bedside on BIPAP lethagic making urine on IVF Vital Signs Temperature 97.5 F L 10/20/18 05:19 Pulse Rate 110 H 10/20/18 05:19 Respiratory Rate 18 10/20/18 05:19 Blood Pressure 120/67 10/20/18 05:19 O2 Sat by Pulse Oximetry (%) 96 10/20/18 00:22 Intake & Output 10/17/18 10/18/18 10/19/18 10/20/18 23:59 23:59 23:59 23:59 Intake Total 1125 875 875 Output Total 125 1300 700 Balance -125 -175 175 875 Weight 65 kg 70.806 kg 70.307 kg NAD on BIPAP neck supple no LE edema CBC, BMP 10/19/18 08:00 10/20/18 07:20 Current Medications Albuterol Sulfate (Ventolin 0.083% Nebulizer Soln -) 1 amp NEB Q4H PRN PRN Reason: SHORT OF BREATH/WHEEZING Albuterol/Ipratropium (Duoneb -) 1 amp NEB RQID [facility] Last Admin: 10/20/18 07:55 Dose: 1 amp Atorvastatin Calcium (Lipitor -) 20 mg PO HS [facility] Last Admin: 10/19/18 22:02 Dose: Not Given Calcium Carbonate/Cholecalciferol (Os-Doroteo 500+D -) 1 tab PO BID [facility] Last Admin: 10/19/18 22:03 Dose: Not Given Carvedilol (Coreg -) 25 mg PO BID [facility] Last Admin: 10/19/18 22:02 Dose: Not Given Ferrous Sulfate (Feosol) 300 mg PO BID [facility] Last Admin: 10/19/18 22:02 Dose: Not Given Folic Acid (Folic Acid -) 1 mg PO DAILY [facility] Last Admin: 10/19/18 10:00 Dose: Not Given Sodium Chloride (1/2 Normal Saline) 1,000 mls @ 75 mls/hr IV ASDIR [facility] Last Admin: 10/20/18 06:09 Dose: 75 mls/hr Piperacillin Sod/Tazobactam (Sod 2.25 gm/ Dextrose) 50 mls @ 100 mls/hr IVPB Q8H-IV [facility]; Protocol Last Admin: 11/25/18 01:57 Dose: 100 mls/hr Levothyroxine Sodium (Synthroid -) 50 mcg PO DAILY@0700 [facility] Last Admin: 10/20/18 06:08 Dose: Not Given Methylprednisolone Sodium Succinate (Solu-Medrol -) 40 mg IVPUSH Q8H-IV [facility] Last Admin: 10/20/18 01:57 Dose: 40 mg Morphine Sulfate (Morphine Sulfate) 1 mg IVPUSH Q6H PRN PRN Reason: PAIN LEVEL 6-10 Last Admin: 10/19/18 13:28 Dose: 1 mg Rivaroxaban (Xarelto -) 15 mg PO DAILY@1800 [facility] Last Admin: 10/18/18 17:21 Dose: Not Given Tamsulosin HCl (Flomax -) 0.4 mg PO DAILY@0830 [facility] Last Admin: 10/19/18 08:30 Dose: Not Given 82 year old gentleman with hx of vascular dementia, diverticulitis, afib on A/C , hypothyroidism, CVA, COPD who presented with lethargy and diarrhea from CT and found to have MARIANO and dehydration. #MARIANO likely due to volume depletion in setting of diarrhea (baseline Cr 1.2, Urine sodium very low indicating preserved tubular function, 1+ protein on UA, no obstruction seen on CT of Abd) #Hypernatremia (initial water deficit is 4.45L) #Diarrhea #Anemia Serum na improving (155 to 150 in 24 hours) Renal function essentialy unchanged continue 1/2 Ns at modest rate continue Abx as per primary trend renal function and electrolytes daily Mohit Vizcaino DO
[2018-10-20 09:15] LABS: ALBUMIN 1.9 g/dl (3.4-5.0); ALK PHOS 95 U/L (45-117); ANION GAP 5 MMOL/L (8-16); BILIRUBIN,TOTAL 0.3 mg/dL (0.2-1); BLOOD UREA NITROGEN 81 mg/dL (7-18); CALCIUM 7.8 mg/dL (8.5-10.1); CHLORIDE 122 mmol/L (98-107); CO2 24 mmol/L (21-32); CREATININE 1.9 mg/dL (0.55-1.3); GLUCOSE,RANDOM 198 mg/dL (74-106); MAGNESIUM 2.6 mg/dL (1.8-2.4); POTASSIUM 4.7 mmol/L (3.5-5.1); SGOT/AST 35 U/L (15-37); SGPT/ALT 15 U/L (13-61); SODIUM 150 mmol/L (136-145); TOT PROT 5.6 g/dl (6.4-8.2)
--- NOTE | 2018-10-20 09:17 | PN ---
Progress Note (short form) - Note Progress Note: awake on BIPAP moaning on palpating abdomen Vital Signs - 24 hr 10/19/18 10/19/18 10/20/18 20:46 21:00 00:00 Temperature 98.5 F Pulse Rate 115 H Respiratory 18 Rate Blood Pressure 129/65 O2 Sat by Pulse 96 99 Oximetry (%) 10/20/18 10/20/18 10/20/18 00:22 05:19 09:00 Temperature 97.5 F L Pulse Rate 110 H Respiratory 18 15 Rate Blood Pressure 120/67 O2 Sat by Pulse 96 96 Oximetry (%) 10/20/18 10/20/18 10/20/18 12:30 14:50 18:10 Temperature 97.3 F L 97.4 F L Pulse Rate 125 H 116 H Respiratory 15 18 Rate Blood Pressure 130/84 129/74 O2 Sat by Pulse 96 Oximetry (%) Current Medications Generic Name Dose Route Start Last Admin Trade Name Freq PRN Reason Stop Dose Admin Albuterol Sulfate 1 amp 10/19/18 12:54 Ventolin 0.083% Nebulizer Soln - NEB Q4H PRN SHORT OF BREATH/WHEEZING Albuterol/Ipratropium 1 amp 10/19/18 16:00 10/20/18 16:32 Duoneb - NEB 1 amp RQID [facility] Administration Atorvastatin Calcium 20 mg 10/18/18 22:00 10/19/18 22:02 Lipitor - PO Not Given HS [facility] Carvedilol 25 mg 10/18/18 10:00 10/20/18 10:42 Coreg - PO 25 mg BID [facility] Administration Sodium Chloride 1,000 mls @ 75 mls/hr 10/17/18 23:00 10/20/18 06:09 1/2 Normal Saline IV 75 mls/hr ASDIR [facility] Administration Piperacillin Sod/Tazobactam 50 mls @ 100 mls/hr 10/18/18 10:45 10/20/18 18:17 Sod 2.25 gm/ Dextrose IVPB 100 mls/hr Q8H-IV [facility] Administration Protocol Levothyroxine Sodium 50 mcg 10/18/18 07:00 10/20/18 06:08 Synthroid - PO Not Given DAILY@0700 [facility] Methylprednisolone Sodium Succinate 40 mg 10/19/18 13:00 10/20/18 18:26 Solu-Medrol - IVPUSH 40 mg Q8H-IV [facility] Administration Morphine Sulfate 1 mg 10/18/18 15:49 10/19/18 13:28 Morphine Sulfate IVPUSH 1 mg Q6H PRN Administration PAIN LEVEL 6-10 Rivaroxaban 15 mg 10/18/18 18:00 10/20/18 18:18 Xarelto - PO Not Given DAILY@1800 [facility] Tamsulosin HCl 0.4 mg 10/18/18 08:30 10/20/18 08:30 Flomax - PO Not Given DAILY@0830 [facility] Laboratory Results - last 24 hr 10/19/18 10/19/18 10/20/18 17:41 21:23 05:46 Sodium 152 H Potassium 4.8 Chloride 123 H Carbon Dioxide 21 Anion Gap 8 BUN 73 H Creatinine 1.7 H Creat Clearance w eGFR 38.68 POC Glucometer 197 202 Random Glucose 170 H Calcium 7.8 L Phosphorus Magnesium Total Bilirubin AST ALT Alkaline Phosphatase Total Protein Albumin 10/20/18 10/20/18 10/20/18 07:20 11:49 18:14 Sodium 150 H Potassium 4.7 Chloride 122 H Carbon Dioxide 24 Anion Gap 5 L BUN 81 H Creatinine 1.9 H Creat Clearance w eGFR 34.02 POC Glucometer 259 222 Random Glucose 198 H Calcium 7.8 L Phosphorus 5.0 H Magnesium 2.6 H Total Bilirubin 0.3 AST 35 ALT 15 Alkaline Phosphatase 95 Total Protein 5.6 L Albumin 1.9 L S1 S2 Irregular Lungs decreased Abd- soft tender+ No edema PLAN IV antibiotics repeat blood cultures negative pt's O2 sat decreased on NC IV fluids NPO change po xarelto to lovenox renal function noted Problem List - Problems (1) Acute respiratory failure with hypoxia and hypercapnia Code(s): J96.01 - ACUTE RESPIRATORY FAILURE WITH HYPOXIA; J96.02 - ACUTE RESPIRATORY FAILURE WITH HYPERCAPNIA (2) Atrial fibrillation with RVR Code(s): I48.91 - UNSPECIFIED ATRIAL FIBRILLATION (3) COPD with acute exacerbation Code(s): J44.1 - CHRONIC OBSTRUCTIVE PULMONARY DISEASE W (ACUTE) EXACERBATION (4) Colitis Code(s): K52.9 - NONINFECTIVE GASTROENTERITIS AND COLITIS, UNSPECIFIED (5) Hypernatremia Code(s): E87.0 - HYPEROSMOLALITY AND HYPERNATREMIA (6) Sepsis Code(s): A41.9 - SEPSIS, UNSPECIFIED ORGANISM Qualifiers: Sepsis type: sepsis due to unspecified organism Qualified Code(s): A41.9 - Sepsis, unspecified organism
[2018-10-20] MEDS: CARVEDILOL 25 MG TABLET (FP) PO SCH ×2 (10:42→22:08)
--- NOTE | 2018-10-20 13:14 | PN ---
Progress Note (short form) - Note Progress Note: PULMONARY Remains on BiPAP. ABG improving. Vital Signs Period Temp Pulse Resp BP Sys/Garcia Pulse Ox Last 24 Hr 97.5 F-98.5 F 110-122 14-18 101-129/46-67 96-99 Gen: somnolent Heart: RRR Lung: decreased breath sounds at the bases Abd: soft, nontender Ext: no edema CBC, BMP 10/19/18 08:00 10/20/18 07:20 Active Medications Albuterol Sulfate (Ventolin 0.083% Nebulizer Soln -) 1 amp NEB Q4H PRN PRN Reason: SHORT OF BREATH/WHEEZING Albuterol/Ipratropium (Duoneb -) 1 amp NEB RQID [facility] Last Admin: 10/20/18 11:55 Dose: 1 amp Atorvastatin Calcium (Lipitor -) 20 mg PO HS [facility] Last Admin: 10/19/18 22:02 Dose: Not Given Carvedilol (Coreg -) 25 mg PO BID [facility] Last Admin: 10/20/18 10:42 Dose: 25 mg Sodium Chloride (1/2 Normal Saline) 1,000 mls @ 75 mls/hr IV ASDIR [facility] Last Admin: 10/20/18 06:09 Dose: 75 mls/hr Piperacillin Sod/Tazobactam (Sod 2.25 gm/ Dextrose) 50 mls @ 100 mls/hr IVPB Q8H-IV [facility]; Protocol Last Admin: 10/20/18 10:41 Dose: 100 mls/hr Levothyroxine Sodium (Synthroid -) 50 mcg PO DAILY@0700 [facility] Last Admin: 10/20/18 06:08 Dose: Not Given Methylprednisolone Sodium Succinate (Solu-Medrol -) 40 mg IVPUSH Q8H-IV [facility] Last Admin: 10/20/18 10:41 Dose: 40 mg Morphine Sulfate (Morphine Sulfate) 1 mg IVPUSH Q6H PRN PRN Reason: PAIN LEVEL 6-10 Last Admin: 10/19/18 13:28 Dose: 1 mg Rivaroxaban (Xarelto -) 15 mg PO DAILY@1800 [facility] Last Admin: 10/19/18 18:00 Dose: 15 mg Tamsulosin HCl (Flomax -) 0.4 mg PO DAILY@0830 [facility] Last Admin: 10/19/18 08:30 Dose: Not Given A/P Acute Hypoxic and Hypercapneic Respiratory Failure Acute Colitis Severe Sepsis Acute COPD Exacerbation Atrial Fibrillation with RVR Acute Kidney Injury Hypernatremia h/o CVA Hypothyroidism Dementia - continue antibiotics per ID - f/u cultures - IVF - monitor urine output, creatinine - short course of medrol - inhaled bronchodilators - can try nasal cannula - BiPAP to assist in work of breathing - rate control - continue anticoagulation Problem List - Problems (1) Colitis Code(s): K52.9 - NONINFECTIVE GASTROENTERITIS AND COLITIS, UNSPECIFIED (2) Sepsis Code(s): A41.9 - SEPSIS, UNSPECIFIED ORGANISM Qualifiers: Sepsis type: sepsis due to unspecified organism Qualified Code(s): A41.9 - Sepsis, unspecified organism (3) Atrial fibrillation with RVR Code(s): I48.91 - UNSPECIFIED ATRIAL FIBRILLATION (4) Acute respiratory failure with hypoxia and hypercapnia Code(s): J96.01 - ACUTE RESPIRATORY FAILURE WITH HYPOXIA; J96.02 - ACUTE RESPIRATORY FAILURE WITH HYPERCAPNIA (5) COPD with acute exacerbation Code(s): J44.1 - CHRONIC OBSTRUCTIVE PULMONARY DISEASE W (ACUTE) EXACERBATION
[2018-10-20] MEDS: RIVAROXABAN 15 MG TABLET PO SCH (18:18)
[2018-10-20] MEDS ORDERED: ENOXAPARIN NA (PORCINE) 80 MG/0.8 ML DISP.SYRIN SQ SCH (22:00)
[2018-10-20] MEDS: ENOXAPARIN NA (PORCINE) 80 MG/0.8 ML DISP.SYRIN SQ SCH (22:08)
[2018-10-21] MEDS ORDERED: DEXTROSE 5%-WATER - 50 ML IVPB ONE ×3 (01:03→17:08)
[2018-10-21] MEDS ORDERED: PIPERACILLIN/TAZOBACTAM 2.25 GM VIAL IVPB ONE ×3 (01:03→17:08)
[2018-10-21] MEDS: SODIUM CHLORIDE 0.45% 1,000 ML IV SCH ×2 (01:55→08:30)
[2018-10-21] MEDS: methylPREDNISolone NA SUCC 40 MG/1 ML VIAL IVPUSH SCH ×3 (01:56→21:57)
[2018-10-21] MEDS: PIPERACILLIN/TAZOB 2.25 GM 2.25 GM in DEXTROSE 5%-WATER - 50 ML IVPB SCH ×3 (01:56→17:31)
[2018-10-21] MEDS: LEVOTHYROXINE NA 50 MCG TABLET (FP) PO SCH (07:38)
[2018-10-21 07:52] LABS: HEMATOCRIT 36.3 % (35.4-49); HEMOGLOBIN 11.1 GM/dL (11.7-16.9); MCH 30.9 pg (25.7-33.7); MCHC 30.6 g/dl (32.0-35.9); MEAN CELL VOLUME 100.9 fl (80-96); MEAN PLT VOLUME 9.6 fl (7.5-11.1); PLATELET COUNT 239 K/MM3 (134-434); RDW 16.6 % (11.9-15.9); WHITE BLOOD COUNT 12.5 K/mm3 (4.0-10.0)
[2018-10-21] MEDS: ALBUTEROL SO4 2.5/IPRATROPIUM 0.5 INH SOL 3 ML VIAL.NEB. NEB SCH ×4 (08:30→20:03)
[2018-10-21] MEDS: TAMSULOSIN HCL 0.4 MG CAP PO SCH (08:30)
[2018-10-21 08:40] LABS: ALBUMIN 1.9 g/dl (3.4-5.0); ALK PHOS 118 U/L (45-117); ANION GAP 7 MMOL/L (8-16); BILIRUBIN,TOTAL 0.3 mg/dL (0.2-1); BLOOD UREA NITROGEN 94 mg/dL (7-18); CALCIUM 7.6 mg/dL (8.5-10.1); CHLORIDE 122 mmol/L (98-107); CO2 23 mmol/L (21-32); GLUCOSE,RANDOM 220 mg/dL (74-106); POTASSIUM 4.5 mmol/L (3.5-5.1); SGOT/AST 42 U/L (15-37); SGPT/ALT 19 U/L (13-61); SODIUM 152 mmol/L (136-145); TOT PROT 5.6 g/dl (6.4-8.2)
[2018-10-21] MEDS: CARVEDILOL 25 MG TABLET (FP) PO SCH ×2 (10:30→21:56)
[2018-10-21] MEDS: ENOXAPARIN NA (PORCINE) 80 MG/0.8 ML DISP.SYRIN SQ SCH ×2 (10:30→21:57)
--- NOTE | 2018-10-21 10:54 | PN ---
Progress Note (short form) - Note Progress Note: Renal follow up for MARIANO Pt seen and examined at the bedside awake on bipap no overnight events on IVF making urine Vital Signs Temperature 98.1 F 10/21/18 09:10 Pulse Rate 115 H 10/21/18 09:10 Respiratory Rate 18 10/21/18 09:10 Blood Pressure 129/76 10/21/18 09:10 O2 Sat by Pulse Oximetry (%) 97 10/21/18 08:30 Intake & Output 10/18/18 10/19/18 10/20/18 10/21/18 23:59 23:59 23:59 23:59 Intake Total 1614 158 2508 850 Output Total 1300 700 950 300 Balance -175 175 575 550 Weight 70.806 kg 70.307 kg NAD, confused No LE edema CBC, BMP 10/21/18 07:30 10/21/18 07:30 Current Medications Albuterol Sulfate (Ventolin 0.083% Nebulizer Soln -) 1 amp NEB Q4H PRN PRN Reason: SHORT OF BREATH/WHEEZING Albuterol/Ipratropium (Duoneb -) 1 amp NEB RQID [facility] Last Admin: 10/21/18 08:30 Dose: 1 amp Carvedilol (Coreg -) 25 mg PO BID [facility] Last Admin: 10/21/18 10:30 Dose: Not Given Enoxaparin Sodium (Lovenox -) 70 mg SQ BID [facility] Last Admin: 10/21/18 10:30 Dose: 70 mg Sodium Chloride (1/2 Normal Saline) 1,000 mls @ 75 mls/hr IV ASDIR [facility] Last Admin: 10/21/18 08:30 Dose: 75 mls/hr Piperacillin Sod/Tazobactam (Sod 2.25 gm/ Dextrose) 50 mls @ 100 mls/hr IVPB Q8H-IV [facility]; Protocol Last Admin: 10/21/18 10:29 Dose: 100 mls/hr Levothyroxine Sodium (Synthroid -) 50 mcg PO DAILY@0700 [facility] Last Admin: 10/21/18 07:38 Dose: Not Given Methylprednisolone Sodium Succinate (Solu-Medrol -) 40 mg IVPUSH Q8H-IV [facility] Last Admin: 10/21/18 10:29 Dose: 40 mg Morphine Sulfate (Morphine Sulfate) 1 mg IVPUSH Q6H PRN PRN Reason: PAIN LEVEL 6-10 Last Admin: 10/19/18 13:28 Dose: 1 mg Tamsulosin HCl (Flomax -) 0.4 mg PO DAILY@0830 [facility] Last Admin: 10/21/18 08:30 Dose: Not Given 82 year old gentleman with hx of vascular dementia, diverticulitis, afib on A/C , hypothyroidism, CVA, COPD who presented with lethargy and diarrhea from [place] and found to have MARIANO and dehydration. #MARIANO likely due to volume depletion in setting of diarrhea (baseline Cr 1.2, Urine sodium very low indicating preserved tubular function, 1+ protein on UA, no obstruction seen on CT of Abd) #Hypernatremia (initial water deficit is 4.45L) #Diarrhea #Anemia Serum Na w/o significant improvement in the last 24 hours change IVF to D5W at 84cc per hour Trend serum na Q24h Trend renal function and electrolytes Mohit Vizcaino DO
[2018-10-21] MEDS ORDERED: DEXTROSE 5%-WATER - 1,000 ML IV SCH (11:00)
--- NOTE | 2018-10-21 11:34 | PN ---
Progress Note (short form) - Note Progress Note: pt seen/ examined chart reviewed awake. weak but no distress all f/u noted Vital Signs Temp 98.1 F 10/21/18 09:10 Pulse 115 H 10/21/18 09:10 Resp 18 10/21/18 09:10 BP 129/76 10/21/18 09:10 Pulse Ox 99 10/21/18 11:24 Intake & Output 10/20/18 10/20/18 10/21/18 11:59 23:59 11:59 Intake Total 875 650 850 Output Total 950 300 Balance 875 -300 550 Intake: IV 825 600 800 1/2 Normal Saline 1,000 825 600 800 ml @ 75 mls/hr IV ASDIR [facility] Rx#:[id number] IVPB 50 50 50 Output: Urine 950 300 [place] 950 300 Other: Voiding Method Indwelling Catheter Indwelling Catheter Indwelling Catheter # Unmeasured Voids [place] 2 Bowel Movement large No Yes # Bowel Movements 1 1 Active Medications Albuterol Sulfate (Ventolin 0.083% Nebulizer Soln -) 1 amp NEB Q4H PRN PRN Reason: SHORT OF BREATH/WHEEZING Albuterol/Ipratropium (Duoneb -) 1 amp NEB RQID [facility] Last Admin: 10/21/18 11:21 Dose: 1 amp Carvedilol (Coreg -) 25 mg PO BID [facility] Last Admin: 10/21/18 10:30 Dose: Not Given Enoxaparin Sodium (Lovenox -) 70 mg SQ BID [facility] Last Admin: 10/21/18 10:30 Dose: 70 mg Piperacillin Sod/Tazobactam (Sod 2.25 gm/ Dextrose) 50 mls @ 100 mls/hr IVPB Q8H-IV [facility]; Protocol Last Admin: 10/21/18 10:29 Dose: 100 mls/hr Dextrose (D5w -) 1,000 mls @ 100 mls/hr IV Q10H [facility] Levothyroxine Sodium (Synthroid -) 50 mcg PO DAILY@0700 [facility] Last Admin: 10/21/18 07:38 Dose: Not Given Methylprednisolone Sodium Succinate (Solu-Medrol -) 40 mg IVPUSH Q8H-IV [facility] Last Admin: 10/21/18 10:29 Dose: 40 mg Morphine Sulfate (Morphine Sulfate) 1 mg IVPUSH Q6H PRN PRN Reason: PAIN LEVEL 6-10 Last Admin: 10/19/18 13:28 Dose: 1 mg Tamsulosin HCl (Flomax -) 0.4 mg PO DAILY@0830 [facility] Last Admin: 10/21/18 08:30 Dose: Not Given CBC, BMP 10/21/18 07:30 10/21/18 07:30 Microbiology 10/17/18 17:50 Blood Culture - Final Blood - Peripheral Venous Staphylococcus Epidermidis 10/17/18 17:53 Blood Culture - Preliminary Blood - Peripheral Venous NO GROWTH OBTAINED AFTER 72 HOURS, INCUBATION TO CONTINUE FOR 2 DAYS. 10/19/18 14:25 Blood Culture - Preliminary Blood - Peripheral Venous NO GROWTH OBTAINED AFTER 24 HOURS, INCUBATION TO CONTINUE FOR 4 DAYS. 10/19/18 14:25 Blood Culture - Preliminary Blood - Peripheral Venous NO GROWTH OBTAINED AFTER 24 HOURS, INCUBATION TO CONTINUE FOR 4 DAYS. 10/19/18 11:50 Urine Culture - Final Urine - Urine [place] NO GROWTH OBTAINED Physical Exam. weak/ chronic ill appearance. S1 S2 Irregular Lungs decreased Abd- soft, non tender. bs + No edema. stage 2 sacral decubitus PLAN IV antibiotics repeat blood cultures negative sof ar IV fluids overall condition gaurded monitor labs decubitus care discussed with nursing staff frequent turning will follow Problem List - Problems (1) Dehydration Code(s): E86.0 - DEHYDRATION (2) CVA, old, ataxia Code(s): I69.993 - ATAXIA FOLLOWING UNSPECIFIED CEREBROVASCULAR DISEASE (3) Acute respiratory failure with hypoxia and hypercapnia Code(s): J96.01 - ACUTE RESPIRATORY FAILURE WITH HYPOXIA; J96.02 - ACUTE RESPIRATORY FAILURE WITH HYPERCAPNIA (4) COPD with acute exacerbation Code(s): J44.1 - CHRONIC OBSTRUCTIVE PULMONARY DISEASE W (ACUTE) EXACERBATION (5) Colitis Code(s): K52.9 - NONINFECTIVE GASTROENTERITIS AND COLITIS, UNSPECIFIED (6) Hypernatremia Code(s): E87.0 - HYPEROSMOLALITY AND HYPERNATREMIA (7) Sepsis Code(s): A41.9 - SEPSIS, UNSPECIFIED ORGANISM Qualifiers: Sepsis type: sepsis due to unspecified organism Qualified Code(s): A41.9 - Sepsis, unspecified organism
--- NOTE | 2018-10-21 12:01 | PN ---
Progress Note (short form) - Note Progress Note: Remains on NIPPV support. Afebrile. Intake & Output 10/18/18 10/19/18 10/20/18 10/21/18 23:59 23:59 23:59 23:59 Intake Total 4349 697 5810 850 Output Total 1300 700 950 300 Balance -175 175 575 550 Weight 156 lb 1.6 oz 155 lb Last Vital Signs Temp Pulse Resp BP Pulse Ox 98.1 F 115 H 18 129/76 99 10/21/18 09:10 10/21/18 09:10 10/21/18 09:10 10/21/18 09:10 10/21/18 11:24 Active Medications Albuterol Sulfate (Ventolin 0.083% Nebulizer Soln -) 1 amp NEB Q4H PRN PRN Reason: SHORT OF BREATH/WHEEZING Albuterol/Ipratropium (Duoneb -) 1 amp NEB RQID [facility] Last Admin: 10/21/18 11:21 Dose: 1 amp Carvedilol (Coreg -) 25 mg PO BID [facility] Last Admin: 10/21/18 10:30 Dose: Not Given Enoxaparin Sodium (Lovenox -) 70 mg SQ BID [facility] Last Admin: 10/21/18 10:30 Dose: 70 mg Piperacillin Sod/Tazobactam (Sod 2.25 gm/ Dextrose) 50 mls @ 100 mls/hr IVPB Q8H-IV [facility]; Protocol Last Admin: 10/21/18 10:29 Dose: 100 mls/hr Dextrose (D5w -) 1,000 mls @ 100 mls/hr IV Q10H [facility] Last Admin: 10/21/18 11:44 Dose: 100 mls/hr Insulin Aspart (Novolog Vial Sliding Scale -) 1 vial SQ BIDAC [facility]; Protocol Levothyroxine Sodium (Synthroid -) 50 mcg PO DAILY@0700 [facility] Last Admin: 10/21/18 07:38 Dose: Not Given Methylprednisolone Sodium Succinate (Solu-Medrol -) 40 mg IVPUSH Q8H-IV [facility] Last Admin: 10/21/18 10:29 Dose: 40 mg Morphine Sulfate (Morphine Sulfate) 1 mg IVPUSH Q6H PRN PRN Reason: PAIN LEVEL 6-10 Last Admin: 10/19/18 13:28 Dose: 1 mg Tamsulosin HCl (Flomax -) 0.4 mg PO DAILY@0830 [facility] Last Admin: 10/21/18 08:30 Dose: Not Given Gen: NAD on NIPPV, somnolent Heart: RRR Lung: decreased breath sounds at the bases Abd: soft, nontender Ext: no edema Laboratory Results - last 24 hr 10/20/18 10/20/18 10/20/18 11:49 18:14 21:11 WBC RBC Hgb Hct MCV MCH MCHC RDW Plt Count MPV Sodium Potassium Chloride Carbon Dioxide Anion Gap BUN Creatinine Creat Clearance w eGFR POC Glucometer 259 222 222 Random Glucose Calcium Total Bilirubin AST ALT Alkaline Phosphatase Total Protein Albumin 10/21/18 10/21/18 10/21/18 06:03 07:30 07:30 WBC 12.5 H RBC 3.60 L Hgb 11.1 L Hct 36.3 MCV 100.9 H MCH 30.9 MCHC 30.6 L RDW 16.6 H Plt Count 239 MPV 9.6 Sodium 152 H Potassium 4.5 Chloride 122 H Carbon Dioxide 23 Anion Gap 7 L BUN 94 H Creatinine 2.0 H Creat Clearance w eGFR 32.07 POC Glucometer 206 Random Glucose 220 H Calcium 7.6 L Total Bilirubin 0.3 AST 42 H ALT 19 Alkaline Phosphatase 118 H Total Protein 5.6 L Albumin 1.9 L Problem List - Problems (1) Colitis Code(s): K52.9 - NONINFECTIVE GASTROENTERITIS AND COLITIS, UNSPECIFIED (2) Sepsis Code(s): A41.9 - SEPSIS, UNSPECIFIED ORGANISM Qualifiers: Sepsis type: sepsis due to unspecified organism Qualified Code(s): A41.9 - Sepsis, unspecified organism (3) Atrial fibrillation with RVR Code(s): I48.91 - UNSPECIFIED ATRIAL FIBRILLATION (4) Acute respiratory failure with hypoxia and hypercapnia Code(s): J96.01 - ACUTE RESPIRATORY FAILURE WITH HYPOXIA; J96.02 - ACUTE RESPIRATORY FAILURE WITH HYPERCAPNIA (5) COPD with acute exacerbation Code(s): J44.1 - CHRONIC OBSTRUCTIVE PULMONARY DISEASE W (ACUTE) EXACERBATION A/P Acute Hypoxic and Hypercapneic Respiratory Failure Acute Colitis Severe Sepsis Acute COPD Exacerbation Atrial Fibrillation with RVR Acute Kidney Injury Hypernatremia h/o CVA Hypothyroidism Dementia - continue antibiotics per ID - monitor urine output, creatinine - Wean medrol - inhaled bronchodilators - Can attempt VM O2 - NIPPV to assist in work of breathing - rate control - continue anticoagulation - Should have further GOC discussions with family Dr Quinn
[2018-10-21] MEDS ORDERED: methylPREDNISolone NA SUCC 40 MG/1 ML VIAL IVPUSH SCH (12:15)
--- NOTE | 2018-10-21 12:40 | CONSULT ---
Admitting History and Physical - Primary Care Physician PCP: Jeanette Hall - Admission History of Present Illness: 82 year old gentleman with hx of vascular dementia, diverticulitis, afib on A/C , hypothyroidism, CVA, COPD who presented with lethargy and diarrhea from ID and found to have MARIANO and dehydration. Pt has been on BIPAP, now tolerating up to 2 hours off. Clear liquid diet ordered 10/21.From [facility], with h/o cognitive deficits, soft diet/thin liquids/ aspiration precautions. Selected Entries 10/21/18 10/21/18 10/21/18 05:37 09:10 11:43 Breakfast NPO Temperature 97.7 F 98.1 F Laboratory Tests 10/21/18 07:30 WBC 12.5 H This is my first consult with this pt. History Source: Medical Record Limitations to Obtaining History: Clinical Condition - Past Medical History [employer]: Yes: CVA, Dementia Cardiovascular: Yes: AFIB Pulmonary: Yes: COPD Endocrine: Yes: Hypothyroidism - Smoking History Smoking history: Unknown if ever smoked Have you smoked in the past 12 months: No Aproximately how many cigarettes per day: 0 - Alcohol/Substance Use Hx Alcohol Use: No History - Admission Reason For Visit: COLITIS,HYPERNATREMIA,SEPSIS,ARTERIAL FIBRILLATION - Diagnostics X-ray: Report Reviewed - General Mental Status: Combative, Confused Attention: Moderate Impairment Ability to Follow Directions: Poor Head/Neck Control: Needs Assist - Hearing Hearing: Impaired Hearing Aide: No With Patient: No Speech Evaluation - Communication Primary Language: KITTITIAN Communication: Yes: Non-Communicable Oral Expression Ability: Yes: Non-Verbal (vocal/non verbal. Right sided weakness -Aphasia?) - Speech Production Able to Make Needs Known: Yes: Severely Impaired - Speech Characteristics Voice Loudness: Normal Voice Pitch: Yes: Normal Voice Phonatory-based Quality: Yes: Normal - Language/Verbal Expression Functional Communication Status: Yes: Severely Impaired - Swallow Evaluation/Bedside Assessment Current Nutritional Intake: NPO (IV hydration.) Oral Secretions: Yes: WFL Dentition: Yes: Missing Teeth Laryngeal Movement: Unable to Palpate Recommendations - Speech Evaluation, Impression/Plan Impression: Non communicative, but good vocal quality with phonation. Pt did not follow commands or respond to spoon with applesauce placed in anterior oral cavity.Nursing suctioned residue. High risk of aspiration presently. Unable to place NGT with reqired BIPAP. - Dysphagia Impressions/Plan Swallowing Skills: Impaired Dysphagia Impressions: Ongoing Evaluation *Silent aspiration: cannot be R/O at bedside Recommendations: Other (Consider alternate means of nutrition.) - Recommendations Diet Consistency: NPO (continue strict NPO), Other
--- NOTE | 2018-10-21 16:32 | PN ---
Progress Note (short form) - Note Progress Note: on bipap steroids added 10/19 no further fevers one BM soft Vital Signs Period Temp Pulse Resp BP Sys/Garcia Pulse Ox Last 24 Hr 97.4 F-98.1 F 113-119 -18 123-129/73-83 96-100 cor-rrr lungs decreased bs at bases abd firm, distended, +BS ext no edema CBC, BMP 10/21/18 07:30 10/21/18 07:30 Microbiology 10/19/18 14:25 Blood - Peripheral Venous Blood Culture - Preliminary NO GROWTH OBTAINED AFTER 48 HOURS, INCUBATION TO CONTINUE FOR 3 DAYS. 10/19/18 14:25 Blood - Peripheral Venous Blood Culture - Preliminary NO GROWTH OBTAINED AFTER 48 HOURS, INCUBATION TO CONTINUE FOR 3 DAYS. 10/17/18 17:50 Blood - Peripheral Venous Blood Culture - Final Staphylococcus Epidermidis 10/17/18 17:53 Blood - Peripheral Venous Blood Culture - Preliminary NO GROWTH OBTAINED AFTER 72 HOURS, INCUBATION TO CONTINUE FOR 2 DAYS. 10/19/18 11:50 Urine - Urine [place] Urine Culture - Final NO GROWTH OBTAINED 10/17/18 17:50 Urine - Urine - Catheterized Urine Culture - Final NO GROWTH OBTAINED Active Medications Albuterol Sulfate (Ventolin 0.083% Nebulizer Soln -) 1 amp NEB Q4H PRN PRN Reason: SHORT OF BREATH/WHEEZING Albuterol/Ipratropium (Duoneb -) 1 amp NEB RQID [facility] Last Admin: 10/21/18 15:14 Dose: 1 amp Carvedilol (Coreg -) 25 mg PO BID [facility] Last Admin: 10/21/18 10:30 Dose: Not Given Enoxaparin Sodium (Lovenox -) 70 mg SQ BID [facility] Last Admin: 10/21/18 10:30 Dose: 70 mg Piperacillin Sod/Tazobactam (Sod 2.25 gm/ Dextrose) 50 mls @ 100 mls/hr IVPB Q8H-IV [facility]; Protocol Last Admin: 10/21/18 10:29 Dose: 100 mls/hr Dextrose (D5w -) 1,000 mls @ 84 mls/hr IV Q10H [facility] Insulin Aspart (Novolog Vial Sliding Scale -) 1 vial SQ BIDAC [facility]; Protocol Levothyroxine Sodium (Synthroid -) 50 mcg PO DAILY@0700 [facility] Last Admin: 10/21/18 07:38 Dose: Not Given Methylprednisolone Sodium Succinate (Solu-Medrol -) 30 mg IVPUSH Q12H [facility] Tamsulosin HCl (Flomax -) 0.4 mg PO DAILY@0830 [facility] Last Admin: 10/21/18 08:30 Dose: Not Given a/p colitis choledocholithiasis- consider GI consult- cannot get MRCP as patient is on bipap hypoxemic respiratory failure/copd exacerbation dementia continue zosyn consider GI consult
[2018-10-21] MEDS: INSULIN SLIDING SCALE (NOVOLOG) 1 VIAL SQ SCH (17:34)
[2018-10-21] MEDS: DEXTROSE 5%-WATER - 1,000 ML IV SCH (17:35)
[2018-10-22] MEDS ORDERED: PIPERACILLIN/TAZOBACTAM 2.25 GM VIAL IVPB ONE ×3 (01:40→17:06)
[2018-10-22] MEDS ORDERED: DEXTROSE 5%-WATER - 50 ML IVPB ONE ×3 (01:40→17:06)
[2018-10-22] MEDS: DEXTROSE 5%-WATER - 1,000 ML IV SCH ×3 (01:57→14:25)
[2018-10-22] MEDS: PIPERACILLIN/TAZOB 2.25 GM 2.25 GM in DEXTROSE 5%-WATER - 50 ML IVPB SCH ×3 (01:57→17:14)
[2018-10-22] MEDS: INSULIN SLIDING SCALE (NOVOLOG) 1 VIAL SQ SCH ×2 (06:42→16:21)
[2018-10-22] MEDS: LEVOTHYROXINE NA 50 MCG TABLET (FP) PO SCH (06:43)
[2018-10-22 07:07] LABS: BASO % 0.1 % (0-2.0); HEMATOCRIT 32.3 % (35.4-49); HEMOGLOBIN 10.2 GM/dL (11.7-16.9); MCH 31.5 pg (25.7-33.7); MCHC 31.6 g/dl (32.0-35.9); MEAN CELL VOLUME 99.7 fl (80-96); MEAN PLT VOLUME 9.9 fl (7.5-11.1); MONO % 1.5 % (3.8-10.2); NEUT % 95.4 % (42.8-82.8); PLATELET COUNT 202 K/MM3 (134-434); RBC 3.24 M/mm3 (4.00-5.60)
[2018-10-22] MEDS: ALBUTEROL SO4 2.5/IPRATROPIUM 0.5 INH SOL 3 ML VIAL.NEB. NEB SCH ×4 (07:35→20:56)
[2018-10-22 07:44] LABS: ALBUMIN 1.7 g/dl (3.4-5.0); ALK PHOS 113 U/L (45-117); ANION GAP 5 MMOL/L (8-16); BILIRUBIN,TOTAL 0.4 mg/dL (0.2-1); BLOOD UREA NITROGEN 87 mg/dL (7-18); CALCIUM 7.2 mg/dL (8.5-10.1); CHLORIDE 121 mmol/L (98-107); CO2 25 mmol/L (21-32); CREATININE 1.8 mg/dL (0.55-1.3); GLUCOSE,RANDOM 281 mg/dL (74-106); POTASSIUM 4.1 mmol/L (3.5-5.1); SGOT/AST 39 U/L (15-37); SGPT/ALT 21 U/L (13-61); SODIUM 150 mmol/L (136-145); TOT PROT 4.9 g/dl (6.4-8.2)
[2018-10-22] MEDS: CARVEDILOL 25 MG TABLET (FP) PO SCH ×2 (09:37→22:29)
[2018-10-22] MEDS: TAMSULOSIN HCL 0.4 MG CAP PO SCH (09:37)
[2018-10-22] MEDS: ENOXAPARIN NA (PORCINE) 80 MG/0.8 ML DISP.SYRIN SQ SCH ×2 (09:38→22:28)
[2018-10-22] MEDS: methylPREDNISolone NA SUCC 40 MG/1 ML VIAL IVPUSH SCH ×2 (09:38→22:29)
[2018-10-22 10:34] LABS: ANISOCYTOSIS 1+; MACROCYTOSIS 1+; OVALOCYTE 1+; PLATELET ESTIMATE NORMAL
--- NOTE | 2018-10-22 10:57 | PN ---
Progress Note (short form) - Note Progress Note: Renal follow up for MARIANO Pt seen and examined at the bedside on bipap, sleeping sister at the bedside on IVF no overnight events Vital Signs Temperature 98.3 F 10/22/18 10:00 Pulse Rate 104 H 10/22/18 10:00 Respiratory Rate 18 10/22/18 10:00 Blood Pressure 143/75 10/22/18 10:00 O2 Sat by Pulse Oximetry (%) 98 10/22/18 08:12 Intake & Output 10/19/18 10/20/18 10/21/18 10/22/18 23:59 23:59 23:59 23:59 Intake Total 875 1525 1828 974 Output Total 569 057 1347 600 Balance 175 575 628 374 Weight 70.307 kg 70.443 kg NAD Dec Bs, no rales no [place] CBC, BMP 10/22/18 06:30 10/22/18 06:30 Laboratory Tests 10/21/18 10/22/18 07:30 06:30 Creat Clearance w eGFR 36.21 Calcium 7.6 L 7.2 L Albumin 1.9 L 1.7 L Current Medications Albuterol Sulfate (Ventolin 0.083% Nebulizer Soln -) 1 amp NEB Q4H PRN PRN Reason: SHORT OF BREATH/WHEEZING Albuterol/Ipratropium (Duoneb -) 1 amp NEB RQID [facility] Last Admin: 10/22/18 07:35 Dose: 1 amp Carvedilol (Coreg -) 25 mg PO BID [facility] Last Admin: 10/22/18 09:37 Dose: Not Given Enoxaparin Sodium (Lovenox -) 70 mg SQ BID [facility] Last Admin: 10/22/18 09:38 Dose: 70 mg Piperacillin Sod/Tazobactam (Sod 2.25 gm/ Dextrose) 50 mls @ 100 mls/hr IVPB Q8H-IV [facility]; Protocol Last Admin: 10/22/18 09:41 Dose: 100 mls/hr Dextrose (D5w -) 1,000 mls @ 84 mls/hr IV Q10H [facility] Last Admin: 10/22/18 09:41 Dose: Not Given Insulin Aspart (Novolog Vial Sliding Scale -) 1 vial SQ [facility]IDAC [facility]; Protocol Last Admin: 10/22/18 06:42 Dose: 6 units Levothyroxine Sodium (Synthroid -) 50 mcg PO DAILY@0700 [facility] Last Admin: 10/22/18 06:43 Dose: Not Given Methylprednisolone Sodium Succinate (Solu-Medrol -) 30 mg IVPUSH Q12H [facility] Last Admin: 10/22/18 09:38 Dose: 30 mg Tamsulosin HCl (Flomax -) 0.4 mg PO DAILY@0830 [facility] Last Admin: 10/22/18 09:37 Dose: Not Given 82 year old gentleman with hx of vascular dementia, diverticulitis, afib on A/C , hypothyroidism, CVA, COPD who presented with lethargy and diarrhea from [place] and found to have MARIANO and dehydration. #MARIANO likely due to volume depletion in setting of diarrhea (baseline Cr 1.2, Urine sodium very low indicating preserved tubular function, 1+ protein on UA, no obstruction seen on CT of Abd) #Hypernatremia (initial water deficit is 4.45L) #Diarrhea #Anemia Serum na unchanged, continue D5W ? possibility of enteral feeding will add clinimx at 42cc per hour family asking about possible feeding tube placement continue abx as per primary service Mohit Vizcaino DO
--- NOTE | 2018-10-22 11:33 | PN ---
Progress Note (short form) - Note Progress Note: awake on BIPAP more awake today As per RN-- pt not taking PO-- not able to swallow Vital Signs - 24 hr 10/21/18 10/21/18 10/21/18 14:38 18:00 20:03 Temperature 97.9 F 97.0 F L Pulse Rate 119 H 119 H Respiratory 18 18 Rate Blood Pressure 126/83 135/84 O2 Sat by Pulse 99 Oximetry (%) 10/21/18 10/21/18 10/22/18 21:00 21:30 01:22 Temperature 97.7 F Pulse Rate 98 H Respiratory 18 18 Rate Blood Pressure 120/72 O2 Sat by Pulse 99 99 Oximetry (%) 10/22/18 10/22/18 10/22/18 06:00 06:42 08:12 Temperature 98.0 F Pulse Rate 98 H Respiratory 18 Rate Blood Pressure 142/72 O2 Sat by Pulse 97 98 Oximetry (%) 10/22/18 10:00 Temperature 98.3 F Pulse Rate 104 H Respiratory 18 Rate Blood Pressure 143/75 O2 Sat by Pulse Oximetry (%) Current Medications Generic Name Dose Route Start Last Admin Trade Name Freq PRN Reason Stop Dose Admin Albuterol Sulfate 1 amp 10/19/18 12:54 Ventolin 0.083% Nebulizer Soln - NEB Q4H PRN SHORT OF BREATH/WHEEZING Albuterol/Ipratropium 1 amp 10/19/18 16:00 10/22/18 07:35 Duoneb - NEB 1 amp RQID [facility] Administration Carvedilol 25 mg 10/18/18 10:00 10/22/18 09:37 Coreg - PO Not Given BID [facility] Enoxaparin Sodium 70 mg 10/20/18 22:00 10/22/18 09:38 Lovenox - SQ 70 mg BID [facility] Administration Piperacillin Sod/Tazobactam 50 mls @ 100 mls/hr 10/18/18 10:45 10/22/18 09:41 Sod 2.25 gm/ Dextrose IVPB 100 mls/hr Q8H-IV [facility] Administration Protocol Dextrose 1,000 mls @ 84 mls/hr 10/21/18 12:52 10/22/18 09:41 D5w - IV Not Given Q10H [facility] Insulin Aspart 1 vial 10/21/18 16:30 10/22/18 06:42 Novolog Vial Sliding Scale - SQ 6 units BIDAC [facility] Administration Protocol Levothyroxine Sodium 50 mcg 10/18/18 07:00 10/22/18 06:43 Synthroid - PO Not Given DAILY@0700 [facility] Methylprednisolone Sodium Succinate 30 mg 10/21/18 22:00 10/22/18 09:38 Solu-Medrol - IVPUSH 30 mg Q12H [facility] Administration Tamsulosin HCl 0.4 mg 10/18/18 08:30 10/22/18 09:37 Flomax - PO Not Given DAILY@0830 [facility] Laboratory Results - last 24 hr 10/21/18 10/21/18 10/22/18 11:38 17:32 06:30 WBC 12.0 H RBC 3.24 L Hgb 10.2 L Hct 32.3 L MCV 99.7 H MCH 31.5 MCHC 31.6 L RDW 16.0 H Plt Count 202 MPV 9.9 Absolute Neuts (auto) 11.5 H Neutrophils % 95.4 H Neutrophils % (Manual) 97.0 H Band Neutrophils % 0.0 Lymphocytes % 3.0 L D Lymphocytes % (Manual) 3.0 L Monocytes % 1.5 L Monocytes % (Manual) 0 L Eosinophils % 0.0 D Eosinophils % (Manual) 0.0 Basophils % 0.1 Basophils % (Manual) 0.0 Myelocytes % (Man) 0 Promyelocytes % (Man) 0 Blast Cells % (Manual) 0 Nucleated RBC % 0 Metamyelocytes 0 Hypochromia 0 Platelet Estimate Normal Polychromasia 0 Poikilocytosis 0 Anisocytosis 1+ Microcytosis 0 Macrocytosis 1+ Ovalocytes 1+ Sodium Potassium Chloride Carbon Dioxide Anion Gap BUN Creatinine Creat Clearance w eGFR POC Glucometer 252 266 Random Glucose Calcium Total Bilirubin AST ALT Alkaline Phosphatase Total Protein Albumin 10/22/18 10/22/18 06:30 06:37 WBC RBC Hgb Hct MCV MCH MCHC RDW Plt Count MPV Absolute Neuts (auto) Neutrophils % Neutrophils % (Manual) Band Neutrophils % Lymphocytes % Lymphocytes % (Manual) Monocytes % Monocytes % (Manual) Eosinophils % Eosinophils % (Manual) Basophils % Basophils % (Manual) Myelocytes % (Man) Promyelocytes % (Man) Blast Cells % (Manual) Nucleated RBC % Metamyelocytes Hypochromia Platelet Estimate Polychromasia Poikilocytosis Anisocytosis Microcytosis Macrocytosis Ovalocytes Sodium 150 H Potassium 4.1 Chloride 121 H Carbon Dioxide 25 Anion Gap 5 L BUN 87 H Creatinine 1.8 H Creat Clearance w eGFR 36.21 POC Glucometer 279 Random Glucose 281 H Calcium 7.2 L Total Bilirubin 0.4 AST 39 H ALT 21 Alkaline Phosphatase 113 Total Protein 4.9 L Albumin 1.7 L S1 S2 Irregular Lungs decreased Abd- soft tender+ No edema PLAN IV antibiotics CT head ordered trial of ventimask-- pt desaturated on NC 3 L today IV fluids NPO sc Lovenox Problem List - Problems (1) Acute respiratory failure with hypoxia and hypercapnia Code(s): J96.01 - ACUTE RESPIRATORY FAILURE WITH HYPOXIA; J96.02 - ACUTE RESPIRATORY FAILURE WITH HYPERCAPNIA (2) Atrial fibrillation with RVR Code(s): I48.91 - UNSPECIFIED ATRIAL FIBRILLATION (3) COPD with acute exacerbation Code(s): J44.1 - CHRONIC OBSTRUCTIVE PULMONARY DISEASE W (ACUTE) EXACERBATION (4) Colitis Code(s): K52.9 - NONINFECTIVE GASTROENTERITIS AND COLITIS, UNSPECIFIED (5) Hypernatremia Code(s): E87.0 - HYPEROSMOLALITY AND HYPERNATREMIA (6) Sepsis Code(s): A41.9 - SEPSIS, UNSPECIFIED ORGANISM Qualifiers: Sepsis type: sepsis due to unspecified organism Qualified Code(s): A41.9 - Sepsis, unspecified organism
--- NOTE | 2018-10-22 14:27 | PN ---
Progress Note, Physician History of Present Illness: PULMONARY LETHARGIC ON BIPAP,-RESP DISTRESS - Current Medication List Current Medications: Active Medications Albuterol Sulfate (Ventolin 0.083% Nebulizer Soln -) 1 amp NEB Q4H PRN PRN Reason: SHORT OF BREATH/WHEEZING Albuterol/Ipratropium (Duoneb -) 1 amp NEB RQID [facility] Last Admin: 10/22/18 11:20 Dose: 1 amp Carvedilol (Coreg -) 25 mg PO BID [facility] Last Admin: 10/22/18 09:37 Dose: Not Given Enoxaparin Sodium (Lovenox -) 70 mg SQ BID [facility] Last Admin: 10/22/18 09:38 Dose: 70 mg Piperacillin Sod/Tazobactam (Sod 2.25 gm/ Dextrose) 50 mls @ 100 mls/hr IVPB Q8H-IV [facility]; Protocol Last Admin: 10/22/18 09:41 Dose: 100 mls/hr Dextrose (D5w -) 1,000 mls @ 84 mls/hr IV Q10H [facility] Last Admin: 10/22/18 09:41 Dose: Not Given Insulin Aspart (Novolog Vial Sliding Scale -) 1 vial SQ BIDAC [facility]; Protocol Last Admin: 10/22/18 06:42 Dose: 6 units Levothyroxine Sodium (Synthroid Injection -) 50 mcg IVPUSH DAILY [facility] Methylprednisolone Sodium Succinate (Solu-Medrol -) 30 mg IVPUSH Q12H [facility] Last Admin: 10/22/18 09:38 Dose: 30 mg - Objective Vital Signs: Vital Signs Temperature 97.6 F 10/22/18 13:42 Pulse Rate 123 H 10/22/18 13:42 Respiratory Rate 20 10/22/18 13:42 Blood Pressure 154/80 10/22/18 13:42 O2 Sat by Pulse Oximetry (%) 97 10/22/18 11:53 Constitutional: Yes: Well Nourished, Pallor, Other (LETHARGIC) HENT: Yes: WNL Neck: Yes: WNL Cardiovascular: Yes: Pulse Irregular, S1, S2 Respiratory: Yes: Diminished Gastrointestinal: Yes: Normal Bowel Sounds, Soft Extremities: Yes: WNL Edema: No Labs: CBC, BMP 10/22/18 06:30 10/22/18 06:30 INR, PTT INR 1.28 (0.83-1.09) H 10/17/18 17:50 Assessment/Plan Problem List - Problems (1) Colitis Code(s): K52.9 - NONINFECTIVE GASTROENTERITIS AND COLITIS, UNSPECIFIED (2) Sepsis Code(s): A41.9 - SEPSIS, UNSPECIFIED ORGANISM Qualifiers: Sepsis type: sepsis due to unspecified organism Qualified Code(s): A41.9 - Sepsis, unspecified organism (3) Atrial fibrillation with RVR Code(s): I48.91 - UNSPECIFIED ATRIAL FIBRILLATION (4) Acute respiratory failure with hypoxia and hypercapnia Code(s): J96.01 - ACUTE RESPIRATORY FAILURE WITH HYPOXIA; J96.02 - ACUTE RESPIRATORY FAILURE WITH HYPERCAPNIA (5) COPD with acute exacerbation Code(s): J44.1 - CHRONIC OBSTRUCTIVE PULMONARY DISEASE W (ACUTE) EXACERBATION A/P Acute Hypoxic and Hypercapneic Respiratory Failure Acute Colitis Severe Sepsis Acute COPD Exacerbation Atrial Fibrillation with RVR Acute Kidney Injury Hypernatremia h/o CVA Hypothyroidism Dementia - continue antibiotics per ID - monitor urine output, creatinine - medrol taper - inhaled bronchodilators - O2 - NIPPV to assist in work of breathing - rate control - anticoagulation - Should have further GOC discussions with family DR JONES
[2018-10-22] MEDS ORDERED: AMINO ACIDS 4.25%/D5W 1,000 ML IV SCH (16:00)
[2018-10-23] MEDS ORDERED: PIPERACILLIN/TAZOBACTAM 2.25 GM VIAL IVPB ONE ×3 (01:14→18:45)
[2018-10-23] MEDS ORDERED: DEXTROSE 5%-WATER - 50 ML IVPB ONE ×3 (01:14→18:45)
[2018-10-23] MEDS: PIPERACILLIN/TAZOB 2.25 GM 2.25 GM in DEXTROSE 5%-WATER - 50 ML IVPB SCH ×3 (01:33→18:57)
[2018-10-23] MEDS: INSULIN SLIDING SCALE (NOVOLOG) 1 VIAL SQ SCH ×2 (06:18→19:11)
[2018-10-23] MEDS: ALBUTEROL SO4 2.5/IPRATROPIUM 0.5 INH SOL 3 ML VIAL.NEB. NEB SCH ×4 (07:47→20:35)
[2018-10-23 08:34] LABS: ANION GAP 5 MMOL/L (8-16); BLOOD UREA NITROGEN 75 mg/dL (7-18); CALCIUM 7.5 mg/dL (8.5-10.1); CHLORIDE 119 mmol/L (98-107); CO2 25 mmol/L (21-32); CREATININE 1.4 mg/dL (0.55-1.3); GLUCOSE,RANDOM 276 mg/dL (74-106); MAGNESIUM 2.8 mg/dL (1.8-2.4); PHOSPHOROUS 2.9 mg/dL (2.5-4.9); POTASSIUM 4.1 mmol/L (3.5-5.1); SODIUM 150 mmol/L (136-145)
[2018-10-23] MEDS ORDERED: LEVOTHYROXINE SODIUM 100 MCG VIAL IVPUSH SCH (10:00)
[2018-10-23] MEDS: methylPREDNISolone NA SUCC 40 MG/1 ML VIAL IVPUSH SCH ×2 (11:05→22:59)
[2018-10-23] MEDS: CARVEDILOL 25 MG TABLET (FP) PO SCH (11:05)
--- NOTE | 2018-10-23 11:10 | PN ---
Progress Note (short form) - Note Progress Note: awake on BIPAP more awake today As per RN-- pt not taking PO-- not able to swallow Vital Signs - 24 hr 10/22/18 10/22/18 10/22/18 11:53 13:42 16:11 Temperature 97.6 F Pulse Rate 123 H Respiratory 20 Rate Blood Pressure 154/80 O2 Sat by Pulse 97 98 Oximetry (%) 10/22/18 10/22/18 10/22/18 18:00 19:04 21:00 Temperature 97.3 F L Pulse Rate 121 H Respiratory 22 H 22 H Rate Blood Pressure 137/77 O2 Sat by Pulse 97 97 Oximetry (%) 10/22/18 10/23/18 10/23/18 22:10 00:08 01:55 Temperature 97.8 F 98.2 F Pulse Rate 107 H 107 H Respiratory 20 20 Rate Blood Pressure 135/76 141/85 O2 Sat by Pulse 99 Oximetry (%) 10/23/18 10/23/18 04:39 06:00 Temperature 97.4 F L Pulse Rate 105 H Respiratory 20 Rate Blood Pressure 155/80 O2 Sat by Pulse 99 Oximetry (%) Current Medications Generic Name Dose Route Start Last Admin Trade Name Freq PRN Reason Stop Dose Admin Albuterol Sulfate 1 amp 10/19/18 12:54 Ventolin 0.083% Nebulizer Soln - NEB Q4H PRN SHORT OF BREATH/WHEEZING Albuterol/Ipratropium 1 amp 10/19/18 16:00 10/23/18 07:47 Duoneb - NEB 1 amp RQID [facility] Administration Carvedilol 25 mg 10/18/18 10:00 10/23/18 11:05 Coreg - PO 25 mg BID [facility] Administration Enoxaparin Sodium 70 mg 10/20/18 22:00 10/22/18 22:28 Lovenox - SQ 70 mg BID [facility] Administration Piperacillin Sod/Tazobactam 50 mls @ 100 mls/hr 10/18/18 10:45 10/23/18 11:05 Sod 2.25 gm/ Dextrose IVPB 100 mls/hr Q8H-IV [facility] Administration Protocol Amino Acids 1,000 mls @ 42 mls/hr 10/22/18 16:00 10/22/18 16:12 Clinimix - IV 42 mls/hr Q24H [facility] Administration Insulin Aspart 1 vial 10/21/18 16:30 10/23/18 06:18 Novolog Vial Sliding Scale - SQ 6 units BIDAC [facility] Administration Protocol Levothyroxine Sodium 50 mcg 10/23/18 10:00 Synthroid Injection - IVPUSH DAILY [facility] Methylprednisolone Sodium Succinate 30 mg 10/21/18 22:00 10/23/18 11:05 Solu-Medrol - IVPUSH 30 mg Q12H [facility] Administration Laboratory Results - last 24 hr 10/22/18 10/22/18 10/23/18 06:30 16:11 06:15 Neutrophils % (Manual) 97.0 H Band Neutrophils % 0.0 Lymphocytes % (Manual) 3.0 L Monocytes % (Manual) 0 L Eosinophils % (Manual) 0.0 Basophils % (Manual) 0.0 Myelocytes % (Man) 0 Promyelocytes % (Man) 0 Blast Cells % (Manual) 0 Metamyelocytes 0 Hypochromia 0 Platelet Estimate Normal Polychromasia 0 Poikilocytosis 0 Anisocytosis 1+ Microcytosis 0 Macrocytosis 1+ Ovalocytes 1+ Sodium 150 H Potassium 4.1 Chloride 119 H Carbon Dioxide 25 Anion Gap 5 L BUN 75 H Creatinine 1.4 H Creat Clearance w eGFR 48.40 POC Glucometer 270 Random Glucose 276 H Calcium 7.5 L Phosphorus 2.9 Magnesium 2.8 H 10/23/18 06:16 Neutrophils % (Manual) Band Neutrophils % Lymphocytes % (Manual) Monocytes % (Manual) Eosinophils % (Manual) Basophils % (Manual) Myelocytes % (Man) Promyelocytes % (Man) Blast Cells % (Manual) Metamyelocytes Hypochromia Platelet Estimate Polychromasia Poikilocytosis Anisocytosis Microcytosis Macrocytosis Ovalocytes Sodium Potassium Chloride Carbon Dioxide Anion Gap BUN Creatinine Creat Clearance w eGFR POC Glucometer 262 Random Glucose Calcium Phosphorus Magnesium S1 S2 Irregular Lungs decreased Abd- soft tender+ No edema PLAN IV antibiotics CT head noted spoke with sister-- she wants him to get peg tube for feeding-- well aware of the risks of aspiration Will consult IR for peg placement swallow eval noted IV fluids NPO sc Lovenox hematuria-- check CBC -- if drop in CBC , will need to dc Lovenox - this was conveyed to the sister Problem List - Problems (1) Acute respiratory failure with hypoxia and hypercapnia Code(s): J96.01 - ACUTE RESPIRATORY FAILURE WITH HYPOXIA; J96.02 - ACUTE RESPIRATORY FAILURE WITH HYPERCAPNIA (2) Atrial fibrillation with RVR Code(s): I48.91 - UNSPECIFIED ATRIAL FIBRILLATION (3) COPD with acute exacerbation Code(s): J44.1 - CHRONIC OBSTRUCTIVE PULMONARY DISEASE W (ACUTE) EXACERBATION (4) Colitis Code(s): K52.9 - NONINFECTIVE GASTROENTERITIS AND COLITIS, UNSPECIFIED (5) Hypernatremia Code(s): E87.0 - HYPEROSMOLALITY AND HYPERNATREMIA (6) Sepsis Code(s): A41.9 - SEPSIS, UNSPECIFIED ORGANISM Qualifiers: Sepsis type: sepsis due to unspecified organism Qualified Code(s): A41.9 - Sepsis, unspecified organism
--- NOTE | 2018-10-23 11:28 | PN ---
Progress Note (short form) - Note Progress Note: Renal follow up for MARIANO Pt seen and examined at the bedside awake on BIPAP no overnight events on D5W Vital Signs Temperature 97.4 F L 10/23/18 06:00 Pulse Rate 105 H 10/23/18 06:00 Respiratory Rate 20 10/23/18 06:00 Blood Pressure 155/80 10/23/18 06:00 O2 Sat by Pulse Oximetry (%) 99 10/23/18 04:39 Intake & Output 10/20/18 10/21/18 10/22/18 10/23/18 23:59 23:59 23:59 23:59 Intake Total 1525 1828 2192 344 Output Total 950 1200 600 Balance 108 873 1174 344 Weight 70.443 kg 69.513 kg NAD CTA No LE edema CBC, BMP 10/22/18 06:30 10/23/18 06:15 Laboratory Tests 10/23/18 06:15 Calcium 7.5 L Phosphorus 2.9 Magnesium 2.8 H Current Medications Albuterol Sulfate (Ventolin 0.083% Nebulizer Soln -) 1 amp NEB Q4H PRN PRN Reason: SHORT OF BREATH/WHEEZING Albuterol/Ipratropium (Duoneb -) 1 amp NEB RQID [facility] Last Admin: 10/23/18 07:47 Dose: 1 amp Carvedilol (Coreg -) 25 mg PO BID [facility] Last Admin: 10/23/18 11:05 Dose: 25 mg Enoxaparin Sodium (Lovenox -) 70 mg SQ BID [facility] Last Admin: 10/22/18 22:28 Dose: 70 mg Piperacillin Sod/Tazobactam (Sod 2.25 gm/ Dextrose) 50 mls @ 100 mls/hr IVPB Q8H-IV [facility]; Protocol Last Admin: 10/23/18 11:05 Dose: 100 mls/hr Amino Acids (Clinimix -) 1,000 mls @ 42 mls/hr IV Q24H [facility] Last Admin: 10/22/18 16:12 Dose: 42 mls/hr Insulin Aspart (Novolog Vial Sliding Scale -) 1 vial SQ BIDAC [facility]; Protocol Last Admin: 10/23/18 06:18 Dose: 6 units Levothyroxine Sodium (Synthroid Injection -) 50 mcg IVPUSH DAILY [facility] Methylprednisolone Sodium Succinate (Solu-Medrol -) 30 mg IVPUSH Q12H [facility] Last Admin: 10/23/18 11:05 Dose: 30 mg 82 year old gentleman with hx of vascular dementia, diverticulitis, afib on A/C , hypothyroidism, CVA, COPD who presented with lethargy and diarrhea from [place] and found to have MARIANO and dehydration. #MARIANO likely due to volume depletion in setting of diarrhea (baseline Cr 1.2, Urine sodium very low indicating preserved tubular function, 1+ protein on UA, no obstruction seen on CT of Abd) #Hypernatremia (initial water deficit is 4.45L) #Diarrhea #Anemia Serum na stable BUN/Cr improving continue Clinimix but increase rate to 84cc per hour Trend serum Na daily Moiht Vizcaino DO
--- NOTE | 2018-10-23 11:58 | PN ---
Progress Note, HOSEMAN - Note Progress Note: On BIPAP, Clear liquids ordered. . More alert. Vocal with good vocal quality. Unintelligible expressive language, Seems to attempt to follow rare whole body commands. 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 Baseline? Swallowing reassessed. Oral holding, needed mouth care to remove 1/2 tsp of puree from his tongue. Cough response with sip of water. Consider palliative care consult regarding end of life wishes. Pt is a full code. PEG? NPO. Clinimix.
[2018-10-23 12:09] LABS: HEMATOCRIT 35.2 % (35.4-49); HEMOGLOBIN 10.9 GM/dL (11.7-16.9); MCH 31.3 pg (25.7-33.7); MEAN CELL VOLUME 100.9 fl (80-96); MEAN PLT VOLUME 10.5 fl (7.5-11.1); PLATELET COUNT 221 K/MM3 (134-434); RBC 3.49 M/mm3 (4.00-5.60); RDW 16.9 % (11.9-15.9); WHITE BLOOD COUNT 11.4 K/mm3 (4.0-10.0)
--- NOTE | 2018-10-23 14:50 | PN ---
Progress Note, Physician History of Present Illness: pulmonary more awake on bipap,-resp distress - Current Medication List Current Medications: Active Medications Albuterol Sulfate (Ventolin 0.083% Nebulizer Soln -) 1 amp NEB Q4H PRN PRN Reason: SHORT OF BREATH/WHEEZING Albuterol/Ipratropium (Duoneb -) 1 amp NEB RQID [facility] Last Admin: 10/23/18 11:37 Dose: 1 amp Carvedilol (Coreg -) 25 mg PO BID [facility] Last Admin: 10/23/18 11:05 Dose: 25 mg Enoxaparin Sodium (Lovenox -) 70 mg SQ BID [facility] Last Admin: 10/22/18 22:28 Dose: 70 mg Piperacillin Sod/Tazobactam (Sod 2.25 gm/ Dextrose) 50 mls @ 100 mls/hr IVPB Q8H-IV [facility]; Protocol Last Admin: 10/23/18 11:05 Dose: 100 mls/hr Amino Acids (Clinimix -) 1,000 mls @ 84 mls/hr IV Q12H [facility] Insulin Aspart (Novolog Vial Sliding Scale -) 1 vial SQ BIDAC [facility]; Protocol Last Admin: 10/23/18 06:18 Dose: 6 units Levothyroxine Sodium (Synthroid Injection -) 25 mcg IVPUSH DAILY [facility] Methylprednisolone Sodium Succinate (Solu-Medrol -) 30 mg IVPUSH Q12H [facility] Last Admin: 10/23/18 11:05 Dose: 30 mg - Objective Vital Signs: Vital Signs Temperature 97.4 F L 10/23/18 06:00 Pulse Rate 105 H 10/23/18 06:00 Respiratory Rate 20 10/23/18 06:00 Blood Pressure 155/80 10/23/18 06:00 O2 Sat by Pulse Oximetry (%) 99 10/23/18 04:39 Constitutional: Yes: Well Nourished, Calm Eyes: Yes: WNL HENT: Yes: WNL Neck: Yes: WNL Cardiovascular: Yes: Pulse Irregular, S1, S2 Respiratory: Yes: On BiPap (scattered rhonchi) Gastrointestinal: Yes: Normal Bowel Sounds, Soft Extremities: Yes: WNL Edema: No Labs: CBC, BMP 10/23/18 06:15 10/23/18 06:15 INR, PTT INR 1.28 (0.83-1.09) H 10/17/18 17:50 Assessment/Plan Problem List - Problems (1) Colitis Code(s): K52.9 - NONINFECTIVE GASTROENTERITIS AND COLITIS, UNSPECIFIED (2) Sepsis Code(s): A41.9 - SEPSIS, UNSPECIFIED ORGANISM Qualifiers: Sepsis type: sepsis due to unspecified organism Qualified Code(s): A41.9 - Sepsis, unspecified organism (3) Atrial fibrillation with RVR Code(s): I48.91 - UNSPECIFIED ATRIAL FIBRILLATION (4) Acute respiratory failure with hypoxia and hypercapnia Code(s): J96.01 - ACUTE RESPIRATORY FAILURE WITH HYPOXIA; J96.02 - ACUTE RESPIRATORY FAILURE WITH HYPERCAPNIA (5) COPD with acute exacerbation Code(s): J44.1 - CHRONIC OBSTRUCTIVE PULMONARY DISEASE W (ACUTE) EXACERBATION A/P Acute Hypoxic and Hypercapneic Respiratory Failure Acute Colitis Severe Sepsis Acute COPD Exacerbation Atrial Fibrillation with RVR Acute Kidney Injury Hypernatremia h/o CVA Hypothyroidism Dementia - continue antibiotics per ID - monitor urine output, creatinine - medrol taper - inhaled bronchodilators - O2 - NIPPV to assist in work of breathing - rate control - anticoagulation - Should have further GOC discussions with family DR JONES
[2018-10-23] MEDS: AMINO ACIDS 4.25%/D5W 1,000 ML IV SCH ×2 (14:55→20:59)
--- NOTE | 2018-10-23 15:52 | PN ---
Progress Note (short form) - Note Progress Note: on bipap steroids added 10/19 Vital Signs Period Temp Pulse Resp BP Sys/Garcia Pulse Ox Last 24 Hr 97.3 F-98.2 F 105-121 14-22 135-156/76-85 97-99 cor-rrr lungs clear abd soft, diffuse tenderness to palpation ext no edema CBC, BMP 10/23/18 06:15 10/23/18 06:15 Microbiology 10/19/18 14:25 Blood - Peripheral Venous Blood Culture - Preliminary NO GROWTH OBTAINED AFTER 96 HOURS, INCUBATION TO CONTINUE FOR 1 DAYS. 10/19/18 14:25 Blood - Peripheral Venous Blood Culture - Preliminary NO GROWTH OBTAINED AFTER 96 HOURS, INCUBATION TO CONTINUE FOR 1 DAYS. 10/17/18 17:53 Blood - Peripheral Venous Blood Culture - Final NO GROWTH AFTER 5 DAYS INCUBATION 10/17/18 17:50 Blood - Peripheral Venous Blood Culture - Final Staphylococcus Epidermidis 10/19/18 11:50 Urine - Urine [place] Urine Culture - Final NO GROWTH OBTAINED 10/17/18 17:50 Urine - Urine - Catheterized Urine Culture - Final NO GROWTH OBTAINED a/p colitis choledocholithiasis- consider GI consult- cannot get MRCP as patient is on bipap hypoxemic respiratory failure/copd exacerbation dementia continue zosyn consider GI consult will d/w PMD apparently cdiff colitis- at the [place]- no diarrhea here but NPO- will add iv flagyl repeat ct scan abd/pelvis
[2018-10-23] MEDS: ENOXAPARIN NA (PORCINE) 80 MG/0.8 ML DISP.SYRIN SQ SCH (18:42)
[2018-10-23] MEDS: LEVOTHYROXINE SODIUM 100 MCG VIAL IVPUSH SCH (21:01)
[2018-10-23 22:18] LABS: URINE APPEARANCE SLCLOUDY; URINE BILIRUBIN NEGATIVE (<2.0 mg/dL); URINE COLOR YELLOW; URINE GLUCOSE (UA) NEGATIVE (NEGATIVE); URINE KETONE NEGATIVE (NEGATIVE); URINE LEUK ESTERASE NEGATIVE (NEGATIVE); URINE NITRITE NEGATIVE (NEGATIVE); URINE PROTEIN 1+ (NEGATIVE); URINE UROBILINOGEN NEGATIVE mg/dL (0.2-1.0)
[2018-10-23 22:28] LABS: URINE MUCUS RARE
[2018-10-23 22:43] LABS: EPI CELLS RARE /HPF (FEW)
[2018-10-24 00:10] LABS: HEMATOCRIT 32.4 % (35.4-49); HEMOGLOBIN 11.1 GM/dL (11.7-16.9); MCH 33.6 pg (25.7-33.7); MCHC 34.4 g/dl (32.0-35.9); MEAN CELL VOLUME 97.8 fl (80-96); MEAN PLT VOLUME 9.8 fl (7.5-11.1); PLATELET COUNT 227 K/MM3 (134-434); RBC 3.31 M/mm3 (4.00-5.60); RDW 16.3 % (11.9-15.9); WHITE BLOOD COUNT 9.3 K/mm3 (4.0-10.0)
[2018-10-24] MEDS ORDERED: DEXTROSE 5%-WATER - 100 ML IVPB ONE (01:04)
[2018-10-24] MEDS ORDERED: PIPERACILLIN/TAZOBACTAM 2.25 GM VIAL IVPB ONE ×2 (01:04→11:21)
[2018-10-24] MEDS: ENOXAPARIN NA (PORCINE) 80 MG/0.8 ML DISP.SYRIN SQ SCH ×3 (01:20→22:14)
[2018-10-24] MEDS: AMINO ACIDS 4.25%/D5W 1,000 ML IV SCH ×2 (01:22→14:45)
[2018-10-24] MEDS: PIPERACILLIN/TAZOB 2.25 GM 2.25 GM in DEXTROSE 5%-WATER - 50 ML IVPB SCH ×2 (02:29→11:25)
[2018-10-24] MEDS ORDERED: INSULIN (NOVOLOG) ASPART 100 UNITS/ML 10ML VIAL ONE ×2 (06:10→12:32)
[2018-10-24] MEDS: INSULIN SLIDING SCALE (NOVOLOG) 1 VIAL SQ SCH ×3 (06:11→18:45)
[2018-10-24 07:34] LABS: HEMATOCRIT 35.6 % (35.4-49); HEMOGLOBIN 11.3 GM/dL (11.7-16.9); MCH 31.6 pg (25.7-33.7); MCHC 31.6 g/dl (32.0-35.9); MEAN CELL VOLUME 99.9 fl (80-96); PLATELET COUNT 198 K/MM3 (134-434); RBC 3.57 M/mm3 (4.00-5.60); RDW 16.5 % (11.9-15.9); WHITE BLOOD COUNT 7.7 K/mm3 (4.0-10.0)
[2018-10-24] MEDS: ALBUTEROL SO4 2.5/IPRATROPIUM 0.5 INH SOL 3 ML VIAL.NEB. NEB SCH ×4 (08:02→20:28)
[2018-10-24 08:06] LABS: ANION GAP 7 MMOL/L (8-16); BLOOD UREA NITROGEN 72 mg/dL (7-18); CALCIUM 7.3 mg/dL (8.5-10.1); CHLORIDE 121 mmol/L (98-107); CO2 24 mmol/L (21-32); CREATININE 1.3 mg/dL (0.55-1.3); POTASSIUM 4.1 mmol/L (3.5-5.1); SODIUM 152 mmol/L (136-145)
[2018-10-24 08:14] LABS: GLUCOSE,RANDOM 330 mg/dL (74-106)
[2018-10-24] MEDS ORDERED: METOPROLOL TARTRATE 5 MG/5 ML VIAL IVPUSH SCH (10:30)
--- NOTE | 2018-10-24 11:09 | PN ---
Progress Note (short form) - Note Progress Note: Renal follow up for MARIANO Pt seen and examined at the bedside on ventimask awakes to physical stimuli on IVF Vital Signs Temperature 97.8 F 10/24/18 10:00 Pulse Rate 108 H 10/24/18 10:33 Respiratory Rate 19 10/24/18 10:33 Blood Pressure 145/87 10/24/18 10:33 O2 Sat by Pulse Oximetry (%) 99 10/24/18 09:48 Intake & Output 10/21/18 10/22/18 10/23/18 10/24/18 23:59 23:59 23:59 23:59 Intake Total 1828 2192 944 Output Total 1200 600 200 400 Balance 628 1592 744 -400 Weight 70.443 kg 69.513 kg 69.116 kg NAD No LE edema CBC, BMP 10/24/18 06:30 10/24/18 06:30 Current Medications Albuterol Sulfate (Ventolin 0.083% Nebulizer Soln -) 1 amp NEB Q4H PRN PRN Reason: SHORT OF BREATH/WHEEZING Albuterol/Ipratropium (Duoneb -) 1 amp NEB RQID [facility] Last Admin: 10/24/18 08:02 Dose: 1 amp Enoxaparin Sodium (Lovenox -) 70 mg SQ BID [facility] Last Admin: 10/24/18 01:20 Dose: 70 mg Piperacillin Sod/Tazobactam (Sod 2.25 gm/ Dextrose) 50 mls @ 100 mls/hr IVPB Q8H-IV [facility]; Protocol Last Admin: 10/24/18 02:29 Dose: 100 mls/hr Amino Acids (Clinimix -) 1,000 mls @ 84 mls/hr IV Q12H [facility] Last Admin: 10/24/18 01:22 Dose: 84 mls/hr Metronidazole (Flagyl 500mg Premixed Ivpb -) 500 mg in 100 mls @ 100 mls/hr IVPB Q8H-IV [facility] Last Admin: 10/24/18 01:23 Dose: 100 mls/hr Insulin Aspart (Novolog Vial Sliding Scale -) 1 vial SQ TIDAC [facility]; Protocol Levothyroxine Sodium (Synthroid Injection -) 25 mcg IVPUSH DAILY [facility] Last Admin: 10/23/18 21:01 Dose: Not Given Methylprednisolone Sodium Succinate (Solu-Medrol -) 30 mg IVPUSH Q12H [facility] Last Admin: 10/23/18 22:59 Dose: 30 mg Metoprolol Tartrate (Lopressor Injection -) 5 mg IVPUSH Q12H [facility] 82 year old gentleman with hx of vascular dementia, diverticulitis, afib on A/C , hypothyroidism, CVA, COPD who presented with lethargy and diarrhea from [place] and found to have MARIANO and dehydration. #MARIANO likely due to volume depletion in setting of diarrhea (baseline Cr 1.2, Urine sodium very low indicating preserved tubular function, 1+ protein on UA, no obstruction seen on CT of Abd)- now resolved #Hypernatremia #Diarrhea #Anemia Renal function improved, high BUN due to steroids Continue IV Clinimix Trend serum electrolytes daily oral intake if pt is cleared by speech and swallow Mohit Vizcaino DO
[2018-10-24] MEDS ORDERED: DEXTROSE 5%-WATER - 50 ML IVPB ONE (11:21)
--- NOTE | 2018-10-24 11:39 | PN ---
Progress Note (short form) - Note Progress Note: Remains on NIPPV support. No significant change in overall condition. Afebrile. Intake & Output 10/21/18 10/22/18 10/23/18 10/24/18 23:59 23:59 23:59 23:59 Intake Total 1828 2192 944 Output Total 1200 600 200 400 Balance 628 1592 744 -400 Weight 155 lb 4.8 oz 153 lb 4 oz 152 lb 6 oz Last Vital Signs Temp Pulse Resp BP Pulse Ox 97.8 F 108 H 19 145/87 99 10/24/18 10:00 10/24/18 10:33 10/24/18 10:33 10/24/18 10:33 10/24/18 09:48 Active Medications Albuterol Sulfate (Ventolin 0.083% Nebulizer Soln -) 1 amp NEB Q4H PRN PRN Reason: SHORT OF BREATH/WHEEZING Albuterol/Ipratropium (Duoneb -) 1 amp NEB RQID [facility] Last Admin: 10/24/18 11:10 Dose: 1 amp Enoxaparin Sodium (Lovenox -) 70 mg SQ BID [facility] Last Admin: 10/24/18 11:25 Dose: 70 mg Piperacillin Sod/Tazobactam (Sod 2.25 gm/ Dextrose) 50 mls @ 100 mls/hr IVPB Q8H-IV [facility]; Protocol Last Admin: 10/24/18 11:25 Dose: 100 mls/hr Amino Acids (Clinimix -) 1,000 mls @ 84 mls/hr IV Q12H [facility] Last Admin: 10/24/18 01:22 Dose: 84 mls/hr Metronidazole (Flagyl 500mg Premixed Ivpb -) 500 mg in 100 mls @ 100 mls/hr IVPB Q8H-IV [facility] Last Admin: 10/24/18 11:25 Dose: 100 mls/hr Insulin Aspart (Novolog Vial Sliding Scale -) 1 vial SQ TIDAC [facility]; Protocol Levothyroxine Sodium (Synthroid Injection -) 25 mcg IVPUSH DAILY [facility] Last Admin: 10/23/18 21:01 Dose: Not Given Methylprednisolone Sodium Succinate (Solu-Medrol -) 30 mg IVPUSH Q12H [facility] Last Admin: 10/23/18 22:59 Dose: 30 mg Metoprolol Tartrate (Lopressor Injection -) 5 mg IVPUSH Q12H [facility] Gen: NAD on NIPPV, somnolent Heart: RRR Lung: bilateral rhonchi, decreased breath sounds at the bases Abd: soft, nontender Ext: no edema Laboratory Results - last 24 hr 10/23/18 10/23/18 10/23/18 06:15 19:10 20:00 WBC 11.4 H RBC 3.49 L Hgb 10.9 L Hct 35.2 L MCV 100.9 H MCH 31.3 MCHC 31.0 L RDW 16.9 H Plt Count 221 MPV 10.5 Sodium Potassium Chloride Carbon Dioxide Anion Gap BUN Creatinine Creat Clearance w eGFR POC Glucometer 267 Random Glucose Calcium Urine Color Yellow Urine Appearance Slcloudy Urine pH 6.0 Ur Specific Hanna 1.017 Urine Protein 1+ H Urine Glucose (UA) Negative Urine Ketones Negative Urine Blood 3+ H Urine Nitrite Negative Urine Bilirubin Negative Urine Urobilinogen Negative Ur Leukocyte Esterase Negative Urine WBC (Auto) 106 Urine RBC (Auto) 85 Ur Epithelial Cells Rare Urine Mucus Rare 10/23/18 10/24/18 10/24/18 23:50 06:09 06:30 WBC 9.3 7.7 RBC 3.31 L 3.57 L Hgb 11.1 L 11.3 L Hct 32.4 L 35.6 MCV 97.8 H 99.9 H MCH 33.6 31.6 MCHC 34.4 31.6 L RDW 16.3 H 16.5 H Plt Count 227 198 MPV 9.8 10.0 Sodium Potassium Chloride Carbon Dioxide Anion Gap BUN Creatinine Creat Clearance w eGFR POC Glucometer 316 Random Glucose Calcium Urine Color Urine Appearance Urine pH Ur Specific Hanna Urine Protein Urine Glucose (UA) Urine Ketones Urine Blood Urine Nitrite Urine Bilirubin Urine Urobilinogen Ur Leukocyte Esterase Urine WBC (Auto) Urine RBC (Auto) Ur Epithelial Cells Urine Mucus 10/24/18 10/24/18 06:30 10:05 WBC RBC Hgb Hct MCV MCH MCHC RDW Plt Count MPV Sodium 152 H Potassium 4.1 Chloride 121 H Carbon Dioxide 24 Anion Gap 7 L BUN 72 H Creatinine 1.3 Creat Clearance w eGFR 52.72 POC Glucometer 397 Random Glucose 330 H* Calcium 7.3 L Urine Color Urine Appearance Urine pH Ur Specific Hanna Urine Protein Urine Glucose (UA) Urine Ketones Urine Blood Urine Nitrite Urine Bilirubin Urine Urobilinogen Ur Leukocyte Esterase Urine WBC (Auto) Urine RBC (Auto) Ur Epithelial Cells Urine Mucus Problem List - Problems (1) Colitis Code(s): K52.9 - NONINFECTIVE GASTROENTERITIS AND COLITIS, UNSPECIFIED (2) Sepsis Code(s): A41.9 - SEPSIS, UNSPECIFIED ORGANISM Qualifiers: Sepsis type: sepsis due to unspecified organism Qualified Code(s): A41.9 - Sepsis, unspecified organism (3) Atrial fibrillation with RVR Code(s): I48.91 - UNSPECIFIED ATRIAL FIBRILLATION (4) Acute respiratory failure with hypoxia and hypercapnia Code(s): J96.01 - ACUTE RESPIRATORY FAILURE WITH HYPOXIA; J96.02 - ACUTE RESPIRATORY FAILURE WITH HYPERCAPNIA (5) COPD with acute exacerbation Code(s): J44.1 - CHRONIC OBSTRUCTIVE PULMONARY DISEASE W (ACUTE) EXACERBATION A/P Acute Hypoxic and Hypercapneic Respiratory Failure Acute Colitis Severe Sepsis Acute COPD Exacerbation Atrial Fibrillation with RVR Acute Kidney Injury Hypernatremia h/o CVA Hypothyroidism Dementia - Antibiotics per ID - monitor urine output, creatinine - Wean medrol - inhaled bronchodilators - Can attempt VM O2 - NIPPV to assist in work of breathing - rate control - continue anticoagulation - Apparently being assessed for feeding tube Dr Quinn
[2018-10-24] MEDS ORDERED: PT OWN MED DRAWER 7, Y5N ONE ×3 (11:45→12:32)
[2018-10-24] MEDS: LEVOTHYROXINE SODIUM 100 MCG VIAL IVPUSH SCH (11:51)
[2018-10-24] MEDS: methylPREDNISolone NA SUCC 40 MG/1 ML VIAL IVPUSH SCH ×2 (11:57→22:15)
[2018-10-24] MEDS: CARVEDILOL 25 MG TABLET (FP) PO SCH (13:00)
[2018-10-24] MEDS: METOPROLOL TARTRATE 5 MG/5 ML VIAL IVPB SCH ×2 (13:55→22:57)
--- NOTE | 2018-10-24 15:16 | PN ---
Progress Note (short form) - Note Progress Note: on bipap steroids added 10/19 alert Vital Signs Period Temp Pulse Resp BP Sys/Garcia Pulse Ox Last 24 Hr 97.2 F-98.1 F 97-114 15-24 130-158/79-104 98-99 cor-rrr lungs decreased bs at bases abd- soft,nt , no pain on palpation ext no edema CBC, BMP 10/24/18 06:30 10/24/18 06:30 Microbiology 10/19/18 14:25 Blood - Peripheral Venous Blood Culture - Final NO GROWTH AFTER 5 DAYS INCUBATION 10/19/18 14:25 Blood - Peripheral Venous Blood Culture - Final NO GROWTH AFTER 5 DAYS INCUBATION 10/17/18 17:53 Blood - Peripheral Venous Blood Culture - Final NO GROWTH AFTER 5 DAYS INCUBATION 10/17/18 17:50 Blood - Peripheral Venous Blood Culture - Final Staphylococcus Epidermidis 10/19/18 11:50 Urine - Urine [place] Urine Culture - Final NO GROWTH OBTAINED 10/17/18 17:50 Urine - Urine - Catheterized Urine Culture - Final NO GROWTH OBTAINED a/p colitis choledocholithiasis- consider GI consult- cannot get MRCP as patient is on bipap hypoxemic respiratory failure/copd exacerbation dementia continue zosyn/flagyl d/w PMD apparently cdiff colitis- at the [place]- no diarrhea here but NPO- repeat ct scan abd/pelvis/chest will review antibiotic management after scans are done
--- NOTE | 2018-10-24 15:29 | CON.NEURO ---
Consult - Past Medical History DYE AND CHEMICAL COORDINATOR: Yes: CVA, Dementia Cardio/Vascular: Yes: AFIB Pulmonary: Yes: COPD Endocrine: Yes: Hypothyroidism - Alcohol/Substance Use Hx Alcohol Use: No - Smoking History Smoking history: Unknown if ever smoked Have you smoked in the past 12 months: No Aproximately how many cigarettes per day: 0 Home Medications - Allergies Allergies/Adverse Reactions: Allergies Allergy/AdvReac Type Severity Reaction Status Date / Time No Known Allergies Allergy Verified 10/17/18 20:05 - Home Medications Home Medications: Ambulatory Orders Calcium Carbonate/Vitamin D3 [Oyster Shell Calcium 500+D Tab] 1 each PO BID Carvedilol 25 mg PO BID 05/13/13 Docusate Sodium [Colace] 100 mg PO HS 05/13/13 Folic Acid 1 mg PO DAILY 05/13/13 Levothyroxine [Synthroid] 50 mcg PO DAILY 05/13/13 Na Phos,M-B/Na Phos,Di-Ba [Fleet Enema] 118 ml RC DAILY PRN 05/13/13 Sennosides [Senna] 8.6 mg PO HS 05/13/13 Simvastatin [Zocor] 40 mg PO HS 05/13/13 Warfarin Sodium [Coumadin] 2 mg PO HS 05/13/13 Ferrous Sulfate 60 mg PO BID 09/21/18 Magnesium Hydroxide [Milk of Magnesia] 30 ml PO PRN PRN 09/21/18 Tamsulosin HCl [Flomax] 0.4 mg PO DAILY 09/21/18 Tiotropium [place] [Spiriva] 18 mcg IH DAILY 09/21/18 Physical Exam-Neuro Vital Signs: Vital Signs Temperature 98.1 F 10/24/18 13:48 Pulse Rate 105 H 10/24/18 13:55 Respiratory Rate 20 10/24/18 13:52 Blood Pressure 158/94 10/24/18 13:55 O2 Sat by Pulse Oximetry (%) 99 10/24/18 09:48 Labs: CBC, BMP 10/24/18 06:30 10/24/18 06:30 INR, PTT INR 1.28 (0.83-1.09) H 10/17/18 17:50 Assessment/Plan cc Letharginess since admission HPI 82 year old male historyof massive left MA stroke, aphasic, bedbound, diverticulitis, afib on xarelto, hypothyroidism. He has right sided hemiplegia and aphasia as baseline. Patient has been lethargic and found to have high bun and creatinine and septicemia. Patient is looking better compare to yesterday. Patient has no seizure, and his fever has subsided he is on abx. He has history of C diff at senior care. PAST MEDICAL HISTORY: vascular dementia, aphasia, diverticulitis, Afib on Xarelto, CVA (residual right sided hemiplegia), COPD NKDA ) HOME MEDICATIONS: Home Medications Medication Instructions Recorded Calcium Carbonate/Vitamin D3 1 each PO BID 05/13/13 [Oyster Shell Calcium 500+D Tab] Carvedilol 25 mg PO BID 05/13/13 Docusate Sodium [Colace] 100 mg PO HS 05/13/13 Folic Acid 1 mg PO DAILY 05/13/13 Levothyroxine [Synthroid] 50 mcg PO DAILY 05/13/13 Na Phos,M-B/Na Phos,Di-Ba [Fleet 118 ml RC DAILY PRN 05/13/13 Enema] Sennosides [Senna] 8.6 mg PO HS 05/13/13 Simvastatin [Zocor] 40 mg PO HS 05/13/13 Warfarin Sodium [Coumadin] 2 mg PO HS 05/13/13 Ferrous Sulfate 60 mg PO BID 09/21/18 Magnesium Hydroxide [Milk of 30 ml PO PRN PRN 09/21/18 Magnesia] Tamsulosin HCl [Flomax] 0.4 mg PO DAILY 09/21/18 Tiotropium [place] [Spiriva] 18 mcg IH DAILY 09/21/18 Social History , FH and ROS reviewed in chart Neurological EXAMINATION Alert and able to track object, aphasic no comprehension, and nodding on asking question as per sister and nursing he is more alert he is on BIPAP for COPD eomi, pupils reactive dense right hemiparesis moving left side ct head showed massive old stroke Assessment: 1. 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 Patient is senior care resident and bed bound .He is not able to eat as he is lethargic 2. Suspect metabolic encephalopathy ( Septicemia and MARIANO) , causing his lethargy , unlikley to be stroke, meningitis or status epilepticus Plan: supportive treatment - Speech consult appreciated. - may benefit from peg tube placement - at this time, no furher testing from Neurological Point of view Thankign you so much Tung Luis MD
--- NOTE | 2018-10-24 19:55 | PN ---
Progress Note (short form) - Note Progress Note: awake on BIPAP not moaning as much As per RN-- pt not taking PO-- not able to swallow Vital Signs - 24 hr 10/23/18 10/23/18 10/24/18 20:35 21:00 00:00 Temperature 97.9 F Pulse Rate 97 H Respiratory 16 Rate Blood Pressure 142/85 O2 Sat by Pulse 99 99 Oximetry (%) 10/24/18 10/24/18 10/24/18 00:33 06:00 09:48 Temperature 97.6 F Pulse Rate 104 H Respiratory 16 Rate Blood Pressure 149/81 O2 Sat by Pulse 98 99 Oximetry (%) 10/24/18 10/24/18 10/24/18 10:00 10:33 12:05 Temperature 97.8 F Pulse Rate 106 H 108 H 103 H Respiratory 16 19 24 H Rate Blood Pressure 151/96 145/87 136/79 O2 Sat by Pulse Oximetry (%) 10/24/18 10/24/18 10/24/18 13:48 13:52 13:55 Temperature 98.1 F Pulse Rate 97 H 105 H 105 H Respiratory 20 20 Rate Blood Pressure 152/92 158/94 158/94 O2 Sat by Pulse Oximetry (%) 10/24/18 10/24/18 10/24/18 16:35 17:04 19:09 Temperature 97.4 F L 97.4 F L Pulse Rate 88 116 H 110 H Respiratory 20 20 Rate Blood Pressure 125/65 148/77 124/57 L O2 Sat by Pulse Oximetry (%) Current Medications Generic Name Dose Route Start Last Admin Trade Name Freq PRN Reason Stop Dose Admin Albuterol Sulfate 1 amp 10/19/18 12:54 Ventolin 0.083% Nebulizer Soln - NEB Q4H PRN SHORT OF BREATH/WHEEZING Albuterol/Ipratropium 1 amp 10/19/18 16:00 10/24/18 15:39 Duoneb - NEB 1 amp RQID FELIPE Administration Enoxaparin Sodium 70 mg 10/20/18 22:00 10/24/18 11:25 Lovenox - SQ 70 mg BID FELIPE Administration Piperacillin Sod/Tazobactam 50 mls @ 100 mls/hr 10/18/18 10:45 10/24/18 11:25 Sod 2.25 gm/ Dextrose IVPB 100 mls/hr Q8H-IV FELIPE Administration Protocol Amino Acids 1,000 mls @ 84 mls/hr 10/23/18 13:15 10/24/18 14:45 Clinimix - IV 84 mls/hr Q12H FELIPE Administration Metronidazole 500 mg in 100 mls @ 100 mls/hr 10/23/18 18:00 10/24/18 18:44 Flagyl 500mg Premixed Ivpb - IVPB 100 mls/hr Q8H-IV FELIPE Administration Insulin Aspart 1 vial 10/24/18 11:00 10/24/18 18:45 Novolog Vial Sliding Scale - SQ 8 units TIDAC FELIPE Administration Protocol Levothyroxine Sodium 25 mcg 10/23/18 15:00 10/24/18 11:51 Synthroid Injection - IVPUSH 25 mcg DAILY FELIPE Administration Methylprednisolone Sodium Succinate 30 mg 10/21/18 22:00 10/24/18 11:57 Solu-Medrol - IVPUSH 30 mg Q12H FELIPE Administration Metoprolol Tartrate 5 mg 10/24/18 11:39 10/24/18 13:55 Lopressor Injection - IVPB 5 mg Q12H FELIPE Administration Laboratory Results - last 24 hr 10/23/18 10/23/18 10/24/18 20:00 23:50 06:09 WBC 9.3 RBC 3.31 L Hgb 11.1 L Hct 32.4 L MCV 97.8 H MCH 33.6 MCHC 34.4 RDW 16.3 H Plt Count 227 MPV 9.8 Sodium Potassium Chloride Carbon Dioxide Anion Gap BUN Creatinine Creat Clearance w eGFR POC Glucometer 316 Random Glucose Calcium Urine Color Yellow Urine Appearance Slcloudy Urine pH 6.0 Ur Specific [place] 1.017 Urine Protein 1+ H Urine Glucose (UA) Negative Urine Ketones Negative Urine Blood 3+ H Urine Nitrite Negative Urine Bilirubin Negative Urine Urobilinogen Negative Ur Leukocyte Esterase Negative Urine WBC (Auto) 106 Urine RBC (Auto) 85 Ur Epithelial Cells Rare Urine Mucus Rare 10/24/18 10/24/18 10/24/18 06:30 06:30 10:05 WBC 7.7 RBC 3.57 L Hgb 11.3 L Hct 35.6 MCV 99.9 H MCH 31.6 MCHC 31.6 L RDW 16.5 H Plt Count 198 MPV 10.0 Sodium 152 H Potassium 4.1 Chloride 121 H Carbon Dioxide 24 Anion Gap 7 L BUN 72 H Creatinine 1.3 Creat Clearance w eGFR 52.72 POC Glucometer 397 Random Glucose 330 H* Calcium 7.3 L Urine Color Urine Appearance Urine pH Ur Specific [place] Urine Protein Urine Glucose (UA) Urine Ketones Urine Blood Urine Nitrite Urine Bilirubin Urine Urobilinogen Ur Leukocyte Esterase Urine WBC (Auto) Urine RBC (Auto) Ur Epithelial Cells Urine Mucus 10/24/18 10/24/18 12:30 16:45 WBC RBC Hgb Hct MCV MCH MCHC RDW Plt Count MPV Sodium Potassium Chloride Carbon Dioxide Anion Gap BUN Creatinine Creat Clearance w eGFR POC Glucometer 316 305 Random Glucose Calcium Urine Color Urine Appearance Urine pH Ur Specific [place] Urine Protein Urine Glucose (UA) Urine Ketones Urine Blood Urine Nitrite Urine Bilirubin Urine Urobilinogen Ur Leukocyte Esterase Urine WBC (Auto) Urine RBC (Auto) Ur Epithelial Cells Urine Mucus S1 S2 Irregular Lungs decreased Abd- soft tender+ No edema PLAN IV antibiotics will order CT chest /abd pelvis Sono gb-- GI eval for dilated CBD IV fluids NPO sc Lovenox hematuria-- check CBC -- if drop in CBC , will need to dc Lovenox - this was conveyed to the sister Problem List - Problems (1) Acute respiratory failure with hypoxia and hypercapnia Code(s): J96.01 - ACUTE RESPIRATORY FAILURE WITH HYPOXIA; J96.02 - ACUTE RESPIRATORY FAILURE WITH HYPERCAPNIA (2) Atrial fibrillation with RVR Code(s): I48.91 - UNSPECIFIED ATRIAL FIBRILLATION (3) COPD with acute exacerbation Code(s): J44.1 - CHRONIC OBSTRUCTIVE PULMONARY DISEASE W (ACUTE) EXACERBATION (4) Colitis Code(s): K52.9 - NONINFECTIVE GASTROENTERITIS AND COLITIS, UNSPECIFIED (5) Hypernatremia Code(s): E87.0 - HYPEROSMOLALITY AND HYPERNATREMIA (6) Sepsis Code(s): A41.9 - SEPSIS, UNSPECIFIED ORGANISM Qualifiers: Sepsis type: sepsis due to unspecified organism Qualified Code(s): A41.9 - Sepsis, unspecified organism
--- NOTE | 2018-10-24 22:24 | CON.GI ---
Consult Consult Specialty:: Gastroenterology Referred by:: Dr. Jeanette Hall Reason for Consultation:: dilated CBD - History of Present Illness Chief Complaint: Admitted with diarrhea History of Present Illness: 82M is transferred from [facility] with diarrhea in the setting of recent antibiotics for sigmoid diverticulitis noted on a 09/23/18 CT scan. It also revealed CBD stones. The CBD stones were evident on repeat CT's but not on today 's sonogram. Gallbladder stones were not seen. The CT also revealed rectosigmoid wall thickening suggesting colitis.The patient is unable to provide any histpry - History Source History Provided By: Medical Record Limitations to Obtaining History: Dementia - Past Medical History BOX LIDDER: Yes: CVA, Dementia Cardio/Vascular: Yes: AFIB Pulmonary: Yes: COPD Hepatobiliary: Yes: Cirrhosis (by CT criteria), Choledocholithiasis Renal/: Yes: Renal Inusuff, Renal Calculi Endocrine: Yes: Hypothyroidism - Alcohol/Substance Use Hx Alcohol Use: No - Smoking History Smoking history: Unknown if ever smoked Have you smoked in the past 12 months: No Aproximately how many cigarettes per day: 0 - Social History Usual [facility] Arrangement: [facility] Home Medications - Allergies Allergies/Adverse Reactions: Allergies Allergy/AdvReac Type Severity Reaction Status Date / Time No Known Allergies Allergy Verified 10/17/18 20:05 - Home Medications Home Medications: Ambulatory Orders Calcium Carbonate/Vitamin D3 [Oyster Shell Calcium 500+D Tab] 1 each PO BID Carvedilol 25 mg PO BID 05/13/13 Docusate Sodium [Colace] 100 mg PO HS 05/13/13 Folic Acid 1 mg PO DAILY 05/13/13 Levothyroxine [Synthroid] 50 mcg PO DAILY 05/13/13 Na Phos,M-B/Na Phos,Di-Ba [Fleet Enema] 118 ml RC DAILY PRN 05/13/13 Sennosides [Senna] 8.6 mg PO HS 05/13/13 Simvastatin [Zocor] 40 mg PO HS 05/13/13 Warfarin Sodium [Coumadin] 2 mg PO HS 05/13/13 Ferrous Sulfate 60 mg PO BID 09/21/18 Magnesium Hydroxide [Milk of Magnesia] 30 ml PO PRN PRN 09/21/18 Tamsulosin HCl [Flomax] 0.4 mg PO DAILY 09/21/18 Tiotropium [place] [Spiriva] 18 mcg IH DAILY 09/21/18 Family Disease History - Family Disease History Family History: Unable to Obtain Physical Exam-GI Vital Signs: Vital Signs Temperature 97.4 F L 10/24/18 17:04 Pulse Rate 110 H 10/24/18 19:09 Respiratory Rate 20 10/24/18 17:04 Blood Pressure 124/57 L 10/24/18 19:09 O2 Sat by Pulse Oximetry (%) 99 10/24/18 09:48 CBC,CMP WBC 7.7 K/mm3 (4.0-10.0) 10/24/18 06:30 RBC 3.57 M/mm3 (4.00-5.60) L 10/24/18 06:30 Hgb 11.3 GM/dL (11.7-16.9) L 10/24/18 06:30 Hct 35.6 % (35.4-49) 10/24/18 06:30 MCV 99.9 fl (80-96) H 10/24/18 06:30 MCH 31.6 pg (25.7-33.7) 10/24/18 06:30 MCHC 31.6 g/dl (32.0-35.9) L 10/24/18 06:30 RDW 16.5 % (11.9-15.9) H 10/24/18 06:30 Plt Count 198 K/MM3 (134-434) 10/24/18 06:30 MPV 10.0 fl (7.5-11.1) 10/24/18 06:30 Absolute Neuts (auto) 11.5 K/mm3 (1.5-8.0) H 10/22/18 06:30 Neutrophils % 95.4 % (42.8-82.8) H 10/22/18 06:30 Neutrophils % (Manual) 97.0 % (42.8-82.8) H 10/22/18 06:30 Band Neutrophils % 0.0 % 10/22/18 06:30 Lymphocytes % 3.0 % (8-40) L D 10/22/18 06:30 Lymphocytes % (Manual) 3.0 % (8-40) L 10/22/18 06:30 Monocytes % 1.5 % (3.8-10.2) L 10/22/18 06:30 Monocytes % (Manual) 0 % (3.8-10.2) L 10/22/18 06:30 Eosinophils % 0.0 % (0-4.5) D 10/22/18 06:30 Eosinophils % (Manual) 0.0 % (0-4.5) 10/22/18 06:30 Basophils % 0.1 % (0-2.0) 10/22/18 06:30 Basophils % (Manual) 0.0 % (0-2.0) 10/22/18 06:30 Myelocytes % (Man) 0 % (0-2) 10/22/18 06:30 Promyelocytes % (Man) 0 % (0-2) 10/22/18 06:30 Blast Cells % (Manual) 0 % (0-0) 10/22/18 06:30 Nucleated RBC % 0 % (0-0) 10/22/18 06:30 Metamyelocytes 0 % (0-2) 10/22/18 06:30 Hypochromia 0 10/22/18 06:30 Platelet Estimate Normal 10/22/18 06:30 Polychromasia 0 10/22/18 06:30 Poikilocytosis 0 10/22/18 06:30 Anisocytosis 1+ 10/22/18 06:30 Microcytosis 0 10/22/18 06:30 Macrocytosis 1+ 10/22/18 06:30 Ovalocytes 1+ 10/22/18 06:30 Sodium 152 mmol/L (136-145) H 10/24/18 06:30 Potassium 4.1 mmol/L (3.5-5.1) 10/24/18 06:30 Chloride 121 mmol/L (98-107) H 10/24/18 06:30 Carbon Dioxide 24 mmol/L (21-32) 10/24/18 06:30 Anion Gap 7 MMOL/L (8-16) L 10/24/18 06:30 BUN 72 mg/dL (7-18) H 10/24/18 06:30 Creatinine 1.3 mg/dL (0.55-1.3) 10/24/18 06:30 Creat Clearance w eGFR 52.72 (>60) 10/24/18 06:30 POC Glucometer 305 UNITS (80-120) 10/24/18 16:45 Random Glucose 330 mg/dL (74-106) H* 10/24/18 06:30 Lactic Acid 1.2 mmol/L (0.4-2.0) 10/17/18 17:50 Calcium 7.3 mg/dL (8.5-10.1) L 10/24/18 06:30 Phosphorus 2.9 mg/dL (2.5-4.9) 10/23/18 06:15 Magnesium 2.8 mg/dL (1.8-2.4) H 10/23/18 06:15 Total Bilirubin 0.4 mg/dL (0.2-1) 10/22/18 06:30 AST 39 U/L (15-37) H 10/22/18 06:30 ALT 21 U/L (13-61) 10/22/18 06:30 Alkaline Phosphatase 113 U/L (45-117) 10/22/18 06:30 Creatine Kinase 141 IU/L (26-308) 10/17/18 17:50 CK-MB (CK-2) < 1.0 ng/mL (0.5-3.6) 10/17/18 17:50 Troponin I 0.04 ng/ml (0.00-0.05) 10/17/18 17:50 Total Protein 4.9 g/dl (6.4-8.2) L 10/22/18 06:30 Albumin 1.7 g/dl (3.4-5.0) L 10/22/18 06:30 TSH 2.21 uIU/ml (0.358-3.74) 10/19/18 08:00 Current Medications Generic Name Dose Route Start Last Admin Trade Name Freq PRN Reason Stop Dose Admin Albuterol Sulfate 1 amp 10/19/18 12:54 Ventolin 0.083% Nebulizer Soln - NEB Q4H PRN SHORT OF BREATH/WHEEZING Albuterol/Ipratropium 1 amp 10/19/18 16:00 10/24/18 20:28 Duoneb - NEB 1 amp RQID FELIPE Administration Enoxaparin Sodium 70 mg 10/20/18 22:00 10/24/18 22:14 Lovenox - SQ 70 mg BID FELIPE Administration Piperacillin Sod/Tazobactam 50 mls @ 100 mls/hr 10/18/18 10:45 11/29/18 11:25 Sod 2.25 gm/ Dextrose IVPB 100 mls/hr Q8H-IV FELIPE Administration Protocol Amino Acids 1,000 mls @ 84 mls/hr 10/23/18 13:15 10/24/18 14:45 Clinimix - IV 84 mls/hr Q12H FELIPE Administration Metronidazole 500 mg in 100 mls @ 100 mls/hr 10/23/18 18:00 10/24/18 18:44 Flagyl 500mg Premixed Ivpb - IVPB 100 mls/hr Q8H-IV FELIPE Administration Insulin Aspart 1 vial 10/24/18 11:00 10/24/18 18:45 Novolog Vial Sliding Scale - SQ 8 units TIDAC FELIPE Administration Protocol Levothyroxine Sodium 25 mcg 10/23/18 15:00 10/24/18 11:51 Synthroid Injection - IVPUSH 25 mcg DAILY FELIPE Administration Methylprednisolone Sodium Succinate 30 mg 10/21/18 22:00 10/24/18 22:15 Solu-Medrol - IVPUSH 30 mg Q12H FELIPE Administration Metoprolol Tartrate 5 mg 10/24/18 11:39 10/24/18 13:55 Lopressor Injection - IVPB 5 mg Q12H FELIPE Administration Constitutional: Yes: Other (noncommunicative) Eyes: Yes: Conjunctiva Clear HENT: Yes: Atraumatic Neck: Yes: Supple Cardiovascular: Yes: Tachycardia, Pulse Irregular Respiratory: Yes: Rhonchi Gastrointestinal Inspection: Yes: WNL ...Auscultate: Yes: Normoactive Bowel Sounds ...Palpate: Yes: Soft, Other (nontender) ...Rectal Exam: Yes: Guaiac Negative Labs: CBC, BMP 10/24/18 06:30 10/24/18 06:30 INR, PTT INR 1.28 (0.83-1.09) H 10/17/18 17:50 Laboratory Tests 10/17/18 10/20/18 10/24/18 17:50 07:20 06:30 Plt Count 198 Total Bilirubin 0.3 0.3 AST 31 35 ALT 15 15 Alkaline Phosphatase 80 95 Imaging - Results Ultrasound: Report Reviewed (Flip Conley Name: [facility] DEPARTMENT OF RADIOLOGY Phys: Jeanette Hall MD : 1935 Age: 82 Sex: M [facility] Acct: [id number] Loc: [id number] [facility] Exam Date: 10/24/18 Status: [place] [address] Unit Number: [id number] EXAM#: TYPE/EXAM : RESULT: [id number] US/ABDOMEN US -LIMITED Right upper quadrant abdomen ultrasound Clinical information: abdominal pain Evaluation is somewhat limited due to the patient's inability to cooperate at this time in regards to standard breath-hold imaging. In comparison to a CT exam of 10/17/2018 interval development of a small amount of nonspecific perihepatic free intraperitoneal fluid is seen. No prior ultrasound studies are available at this facility for direct comparison. As on CT the common bile duct is dilated measuring 1.3 cm. No gross intraductal calculus is identified with the limitations of transabdominal sonography. Minimal to mild diffuse gallbladder wall thickening is seen. No obvious gallbladder calculus is noted. The liver, spleen, kidneys and partially visualized pancreas demonstrate no obvious pathology. There is no aortic aneurysm. Impression: Somewhat limited visualization as noted above. Interval development of a small amount of nonspecific perihepatic free fluid is noted in comparison to a CT exam of 10/17/2018. Note is again made of common bile duct dilatation with a 1.3 cm diameter. Two contiguous 0.5 cm common bile duct calculi noted on CT cannot be definitely appreciated on the current exam which may be due to partially obscuring bowel gas and/or interval passage/extraction. Correlate clinically. Close follow-up CT may be performed. There is no definite evidence of cholelithiasis. The gallbladder demonstrates minimal to mild nonspecific wall thickening. No pericholecystic fluid is identified. Correlate clinically regards to possible acute cholecystitis. Additional evaluation utilizing a radionuclide HIDA scan may be considered. Reported By: Sherman John MD 10/24/181729 Technologist: Elise Romero Transcribed Date/Time: 10/24/181729 Pharmacovigilance Specialist: Sherman John Printed Date/Time: By: Signed by: Sherman John Signed on: 2017 17:32) Problem List - Problems (1) Common bile duct dilatation Assessment/Plan: Saad will need an MRCP to determine whether or not he has residual CBD stones causing his ductal dilation. ERCP would require reversing his anticoagulation and subjecting him to general anesthesia which could leave him unable to be weaned off a respirator. His LFTs do not indicate a high grade obstruction. Given his underlying condition ERCP may best be reserved for ascending cholangitis or obstructive jaundice. These issues will be discussed with the family. They wi;l; be made aware of thr potential for such complications as peforation, hemorrhage and ERCP induced pancreatitis that can lead to multiorgan failure. Code(s): K83.8 - OTHER SPECIFIED DISEASES OF BILIARY TRACT (2) Choledocholithiasis Code(s): K80.50 - CALCULUS OF BILE DUCT W/O CHOLANGITIS OR CHOLECYST W/O OBST (3) Diarrhea Code(s): R19.7 - DIARRHEA, UNSPECIFIED (4) Dementia Code(s): F03.90 - UNSPECIFIED DEMENTIA WITHOUT BEHAVIORAL DISTURBANCE (5) Atrial fibrillation with RVR Code(s): I48.91 - UNSPECIFIED ATRIAL FIBRILLATION (6) COPD with acute exacerbation Code(s): J44.1 - CHRONIC OBSTRUCTIVE PULMONARY DISEASE W (ACUTE) EXACERBATION (7) CVA, old, ataxia Code(s): I69.993 - ATAXIA FOLLOWING UNSPECIFIED CEREBROVASCULAR DISEASE (8) Diverticulitis Code(s): K57.92 - DVTRCLI OF INTEST, PART UNSP, W/O PERF OR ABSCESS W/O BLEED
[2018-10-25] MEDS ORDERED: PIPERACILLIN/TAZOBACTAM 2.25 GM VIAL IVPB ONE ×3 (01:13→17:44)
[2018-10-25] MEDS ORDERED: DEXTROSE 5%-WATER - 50 ML IVPB ONE ×3 (01:13→17:44)
[2018-10-25] MEDS: PIPERACILLIN/TAZOB 2.25 GM 2.25 GM in DEXTROSE 5%-WATER - 50 ML IVPB SCH ×4 (01:31→17:52)
[2018-10-25] MEDS: CARVEDILOL 25 MG TABLET (FP) PO SCH (02:10)
[2018-10-25] MEDS: AMINO ACIDS 4.25%/D5W 1,000 ML IV SCH ×3 (06:12→15:44)
[2018-10-25] MEDS: INSULIN SLIDING SCALE (NOVOLOG) 1 VIAL SQ SCH ×3 (07:28→17:51)
[2018-10-25] MEDS: ALBUTEROL SO4 2.5/IPRATROPIUM 0.5 INH SOL 3 ML VIAL.NEB. NEB SCH ×4 (08:10→21:02)
[2018-10-25 08:15] LABS: HEMATOCRIT 34.1 % (35.4-49); HEMOGLOBIN 11.6 GM/dL (11.7-16.9); MCH 33.3 pg (25.7-33.7); MEAN CELL VOLUME 97.9 fl (80-96); MEAN PLT VOLUME 9.9 fl (7.5-11.1); PLATELET COUNT 236 K/MM3 (134-434); RBC 3.49 M/mm3 (4.00-5.60); RDW 15.8 % (11.9-15.9); WHITE BLOOD COUNT 6.6 K/mm3 (4.0-10.0)
[2018-10-25 08:45] LABS: ALBUMIN 1.9 g/dl (3.4-5.0); BILIRUBIN,DIRECT 0.2 mg/dL (0.0-0.2); BILIRUBIN,TOTAL 0.5 mg/dL (0.2-1)
[2018-10-25 08:49] LABS: ALBUMIN 1.9 g/dl (3.4-5.0); ALK PHOS 126 U/L (45-117); ANION GAP 8 MMOL/L (8-16); BILIRUBIN,TOTAL 0.5 mg/dL (0.2-1); BLOOD UREA NITROGEN 67 mg/dL (7-18); CALCIUM 7.4 mg/dL (8.5-10.1); CHLORIDE 121 mmol/L (98-107); CO2 24 mmol/L (21-32); CREATININE 1.2 mg/dL (0.55-1.3); POTASSIUM 3.8 mmol/L (3.5-5.1); SGOT/AST 44 U/L (15-37); SGPT/ALT 41 U/L (13-61); SODIUM 154 mmol/L (136-145)
[2018-10-25 08:53] LABS: GLUCOSE,RANDOM 310 mg/dL (74-106)
--- NOTE | 2018-10-25 11:47 | PN ---
Progress Note (short form) - Note Progress Note: pt seen/ examined chart reviewed awake/ weak passing clots . Vital Signs Temp 97.4 F L 10/25/18 06:00 Pulse 105 H 10/25/18 06:00 Resp 20 10/25/18 06:00 BP 146/77 10/25/18 06:00 Pulse Ox 97 10/25/18 08:15 Intake & Output 10/24/18 10/24/18 10/25/18 11:59 23:59 11:59 Intake Total 150 804 800 Output Total 400 750 700 Balance -250 54 100 Weight 152 lb 6 oz 152 lb Intake: IV 504 800 CLINIMIX AT 84 CC/HR 504 800 IVPB 150 300 Output: Urine 400 750 700 [place] 400 750 700 Other: Voiding Method Indwelling Catheter Diaper Bowel Movement small No # Bowel Movements 1 Weight Measurement Method Patient Lift Scale Patient Lift Scale Active Medications Albuterol Sulfate (Ventolin 0.083% Nebulizer Soln -) 1 amp NEB Q4H PRN PRN Reason: SHORT OF BREATH/WHEEZING Albuterol/Ipratropium (Duoneb -) 1 amp NEB RQID [facility] Last Admin: 10/25/18 08:10 Dose: 1 amp Piperacillin Sod/Tazobactam (Sod 2.25 gm/ Dextrose) 50 mls @ 100 mls/hr IVPB Q8H-IV FELIPE; Protocol Last Admin: 10/25/18 01:31 Dose: 100 mls/hr Amino Acids (Clinimix -) 1,000 mls @ 84 mls/hr IV Q12H FELIPE Last Admin: 10/25/18 06:13 Dose: 84 mls/hr Metronidazole (Flagyl 500mg Premixed Ivpb -) 500 mg in 100 mls @ 100 mls/hr IVPB Q8H-IV FELIPE Last Admin: 10/25/18 01:31 Dose: 100 mls/hr Insulin Aspart (Novolog Vial Sliding Scale -) 1 vial SQ TIDAC [facility]; Protocol Last Admin: 10/25/18 07:28 Dose: 6 units Insulin Detemir (Levemir Vial) 12 units SQ HS [facility] Levothyroxine Sodium (Synthroid Injection -) 25 mcg IVPUSH DAILY [facility] Last Admin: 10/24/18 11:51 Dose: 25 mcg Methylprednisolone Sodium Succinate (Solu-Medrol -) 30 mg IVPUSH Q12H [facility] Last Admin: 10/24/18 22:15 Dose: 30 mg Metoprolol Tartrate (Lopressor Injection -) 5 mg IVPB Q12H [facility] Last Admin: 10/24/18 22:57 Dose: 5 mg CBC, BMP 10/25/18 07:25 10/25/18 07:25 Microbiology 10/19/18 14:25 Blood Culture - Final Blood - Peripheral Venous NO GROWTH AFTER 5 DAYS INCUBATION 10/19/18 14:25 Blood Culture - Final Blood - Peripheral Venous NO GROWTH AFTER 5 DAYS INCUBATION bgm- noted-- 300s Physical Exam awake/ chronic ill appearance S1 S2 Irregular Lungs decreased Abd- soft / non tender No edema PLAN IV antibiotics IV fluids NPO d/c Lovenox for now f/u labs mrcp pending adjust insulin monitor labs will follow Problem List - Problems (1) Acute respiratory failure with hypoxia and hypercapnia Code(s): J96.01 - ACUTE RESPIRATORY FAILURE WITH HYPOXIA; J96.02 - ACUTE RESPIRATORY FAILURE WITH HYPERCAPNIA (2) Atrial fibrillation with RVR Code(s): I48.91 - UNSPECIFIED ATRIAL FIBRILLATION (3) COPD with acute exacerbation Code(s): J44.1 - CHRONIC OBSTRUCTIVE PULMONARY DISEASE W (ACUTE) EXACERBATION (4) Colitis Code(s): K52.9 - NONINFECTIVE GASTROENTERITIS AND COLITIS, UNSPECIFIED (5) Hypernatremia Code(s): E87.0 - HYPEROSMOLALITY AND HYPERNATREMIA (6) Sepsis Code(s): A41.9 - SEPSIS, UNSPECIFIED ORGANISM Qualifiers: Sepsis type: sepsis due to unspecified organism Qualified Code(s): A41.9 - Sepsis, unspecified organism Problem List - Problems (1) Dehydration Code(s): E86.0 - DEHYDRATION (2) CVA, old, ataxia Code(s): I69.993 - ATAXIA FOLLOWING UNSPECIFIED CEREBROVASCULAR DISEASE (3) Acute respiratory failure with hypoxia and hypercapnia Code(s): J96.01 - ACUTE RESPIRATORY FAILURE WITH HYPOXIA; J96.02 - ACUTE RESPIRATORY FAILURE WITH HYPERCAPNIA (4) COPD with acute exacerbation Code(s): J44.1 - CHRONIC OBSTRUCTIVE PULMONARY DISEASE W (ACUTE) EXACERBATION (5) Colitis Code(s): K52.9 - NONINFECTIVE GASTROENTERITIS AND COLITIS, UNSPECIFIED (6) Hypernatremia Code(s): E87.0 - HYPEROSMOLALITY AND HYPERNATREMIA (7) Sepsis Code(s): A41.9 - SEPSIS, UNSPECIFIED ORGANISM Qualifiers: Sepsis type: sepsis due to unspecified organism Qualified Code(s): A41.9 - Sepsis, unspecified organism
[2018-10-25] MEDS: METOPROLOL TARTRATE 5 MG/5 ML VIAL IVPB SCH (11:52)
[2018-10-25] MEDS: methylPREDNISolone NA SUCC 40 MG/1 ML VIAL IVPUSH SCH (11:53)
[2018-10-25] MEDS: LEVOTHYROXINE SODIUM 100 MCG VIAL IVPUSH SCH (11:53)
[2018-10-25] MEDS: ENOXAPARIN NA (PORCINE) 80 MG/0.8 ML DISP.SYRIN SQ SCH (11:54)
--- NOTE | 2018-10-25 12:48 | PN ---
Progress Note (short form) - Note Progress Note: PULMONARY SISTER IS PRESENT SHE IS AWARE OF THE LEFT UPPER LOBE LUNG LESION THE DECISION HAS BEEN MADE NOT TO PURSUE A DIAGNOSIS AT THIS TIME Constitutional: Yes: Well Nourished, Calm Eyes: Yes: WNL HENT: Yes: WNL Neck: Yes: WNL Cardiovascular: Yes: Pulse Irregular, S1, S2 Respiratory: Yes: On BiPap (scattered rhonchi) Gastrointestinal: Yes: Normal Bowel Sounds, Soft Extremities: Yes: WNL Edema: No LABS/MEDS/NOTES/IMAGES REVIEWED - Problems (1) Colitis Code(s): K52.9 - NONINFECTIVE GASTROENTERITIS AND COLITIS, UNSPECIFIED (2) Sepsis Code(s): A41.9 - SEPSIS, UNSPECIFIED ORGANISM Qualifiers: Sepsis type: sepsis due to unspecified organism Qualified Code(s): A41.9 - Sepsis, unspecified organism (3) Atrial fibrillation with RVR Code(s): I48.91 - UNSPECIFIED ATRIAL FIBRILLATION (4) Acute respiratory failure with hypoxia and hypercapnia Code(s): J96.01 - ACUTE RESPIRATORY FAILURE WITH HYPOXIA; J96.02 - ACUTE RESPIRATORY FAILURE WITH HYPERCAPNIA (5) COPD with acute exacerbation Code(s): J44.1 - CHRONIC OBSTRUCTIVE PULMONARY DISEASE W (ACUTE) EXACERBATION A/P CBD dilatation awaiting MRCP Acute Hypoxic and Hypercapneic Respiratory Failure resolved Acute Colitis rxed w antibiotics Diarrhea Atrial Fibrillation with RVR Acute Kidney Injury Hypernatremia h/o CVA Hypothyroidism Dementia - continue antibiotics per ID - monitor urine output, creatinine - medrol taper - inhaled bronchodilators - O2 - NIPPV to assist in work of breathing - rate control - anticoagulation - Should have further GOC discussions with family Rosaline COTTON MD
--- NOTE | 2018-10-25 13:04 | PN ---
Progress Note (short form) - Note Progress Note: off bipap gi consult reviewed ct scan reports reviewed-left apical mass, cbd stone, colitis Vital Signs Vital Signs Period Temp Pulse Resp BP Sys/Garcia Pulse Ox Last 24 Hr 97.4 F-98.1 F 88-117 20-20 124-163/57-94 97-99 cor-rrr lungs decreased bs at bases abd soft,nt ext no edema CBC, BMP 10/25/18 07:25 10/25/18 07:25 Active Medications Albuterol Sulfate (Ventolin 0.083% Nebulizer Soln -) 1 amp NEB Q4H PRN PRN Reason: SHORT OF BREATH/WHEEZING Albuterol/Ipratropium (Duoneb -) 1 amp NEB RQID FELIPE Last Admin: 10/25/18 11:47 Dose: 1 amp Piperacillin Sod/Tazobactam (Sod 2.25 gm/ Dextrose) 50 mls @ 100 mls/hr IVPB Q8H-IV FELIPE; Protocol Last Admin: 10/25/18 11:51 Dose: 100 mls/hr Amino Acids (Clinimix -) 1,000 mls @ 84 mls/hr IV Q12H FELIPE Last Admin: 10/25/18 06:13 Dose: 84 mls/hr Metronidazole (Flagyl 500mg Premixed Ivpb -) 500 mg in 100 mls @ 100 mls/hr IVPB Q8H-IV FELIPE Last Admin: 10/25/18 11:48 Dose: 100 mls/hr Insulin Aspart (Novolog Vial Sliding Scale -) 1 vial SQ TIDAC FELIPE; Protocol Last Admin: 10/25/18 12:34 Dose: 8 units Insulin Detemir (Levemir Vial) 12 units SQ HS [facility] Levothyroxine Sodium (Synthroid Injection -) 25 mcg IVPUSH DAILY [facility] Last Admin: 10/25/18 11:53 Dose: 25 mcg Methylprednisolone Sodium Succinate (Solu-Medrol -) 30 mg IVPUSH Q12H [facility] Last Admin: 10/25/18 11:53 Dose: 30 mg Metoprolol Tartrate (Lopressor Injection -) 5 mg IVPB Q12H [facility] Last Admin: 10/25/18 11:52 Dose: 5 mg Microbiology 10/19/18 14:25 Blood - Peripheral Venous Blood Culture - Final NO GROWTH AFTER 5 DAYS INCUBATION 10/19/18 14:25 Blood - Peripheral Venous Blood Culture - Final NO GROWTH AFTER 5 DAYS INCUBATION 10/17/18 17:53 Blood - Peripheral Venous Blood Culture - Final NO GROWTH AFTER 5 DAYS INCUBATION 10/17/18 17:50 Blood - Peripheral Venous Blood Culture - Final Staphylococcus Epidermidis 10/19/18 11:50 Urine - Urine [place] Urine Culture - Final NO GROWTH OBTAINED 10/17/18 17:50 Urine - Urine - Catheterized Urine Culture - Final NO GROWTH OBTAINED a/p colitis-continue zosyn and flagyl choledocholithiasis- for MRCP hypoxemic respiratory failure/copd exacerbation dementia apical lung mass- no workup planned per pulmonary note d/w PMD apparently cdiff colitis- at the [facility]- no diarrhea here but NPO- repeat ct scan abd/pelvis/chest-noted will review antibiotic management after MRCP
--- NOTE | 2018-10-25 14:24 | PN ---
Progress Note (short form) - Note Progress Note: Renal follow up for MARIANO Pt seen and examined at the bedside on venti mask lethargic no overnight events no Clinimix Vital Signs Temperature 97.4 F L 10/25/18 06:00 Pulse Rate 103 H 10/25/18 11:52 Respiratory Rate 20 10/25/18 06:00 Blood Pressure 163/81 10/25/18 11:52 O2 Sat by Pulse Oximetry (%) 97 10/25/18 14:00 Intake & Output 10/22/18 10/23/18 10/24/18 10/25/18 23:59 23:59 23:59 23:59 Intake Total 2192 944 954 800 Output Total 992 847 8769 700 Balance 1592 744 -196 100 Weight 70.443 kg 69.513 kg 69.116 kg 68.946 kg NAD on venti mask No LE edema CBC, BMP 10/25/18 07:25 10/25/18 07:25 Current Medications Albuterol Sulfate (Ventolin 0.083% Nebulizer Soln -) 1 amp NEB Q4H PRN PRN Reason: SHORT OF BREATH/WHEEZING Albuterol/Ipratropium (Duoneb -) 1 amp NEB RQID [facility] Last Admin: 10/25/18 11:47 Dose: 1 amp Piperacillin Sod/Tazobactam (Sod 2.25 gm/ Dextrose) 50 mls @ 100 mls/hr IVPB Q8H-IV [facility]; Protocol Last Admin: 10/25/18 11:51 Dose: 100 mls/hr Amino Acids (Clinimix -) 1,000 mls @ 84 mls/hr IV Q12H [facility] Last Admin: 10/25/18 06:13 Dose: 84 mls/hr Metronidazole (Flagyl 500mg Premixed Ivpb -) 500 mg in 100 mls @ 100 mls/hr IVPB Q8H-[facility] Last Admin: 10/25/18 11:48 Dose: 100 mls/hr Insulin Aspart (Novolog Vial Sliding Scale -) 1 vial SQ TIDAC [facility]; Protocol Last Admin: 10/25/18 12:34 Dose: 8 units Insulin Detemir (Levemir Vial) 12 units SQ HS REPLACED BY [facility] Levothyroxine Sodium (Synthroid Injection -) 25 mcg IVPUSH DAILY REPLACED BY [facility] Last Admin: 10/25/18 11:53 Dose: 25 mcg Methylprednisolone Sodium Succinate (Solu-Medrol -) 30 mg IVPUSH Q12H REPLACED BY [facility] Last Admin: 10/25/18 11:53 Dose: 30 mg Metoprolol Tartrate (Lopressor Injection -) 5 mg IVPB Q12H REPLACED BY [facility] Last Admin: 10/25/18 11:52 Dose: 5 mg 82 year old gentleman with hx of vascular dementia, diverticulitis, afib on A/C , hypothyroidism, CVA, COPD who presented with lethargy and diarrhea from MT and found to have MARIANO and dehydration. #MARIANO likely due to volume depletion in setting of diarrhea (baseline Cr 1.2, Urine sodium very low indicating preserved tubular function, 1+ protein on UA, no obstruction seen on CT of Abd)- now resolved #Hypernatremia #Diarrhea #Anemia Renal function stable, BUN high due to steroids will change IVF to D5W at 84cc per hour to improve serum na Trend BMP daily continue abx as per Rafa Vizcaino DO
[2018-10-25] MEDS ORDERED: DEXTROSE 5%-WATER - 1,000 ML IV SCH (14:30)
[2018-10-25] MEDS: DEXTROSE 5%-WATER - 1,000 ML IV SCH (16:00)
--- NOTE | 2018-10-25 19:26 | PN ---
GI Progress Note Subjective: GI NOte: Nursing reports two episodes of hematochezia. The sister tells me that he has had hemorrhoidal bleeding before and that he suffers with chronic constipation. He had a hemorrhoidectomy remotely. There is no FH of colon cancer. The sister tells me that although he has children they are not involved in his recent care and have left it up to her. I also discussed the finding of a dilated CBD which could be indicative of a benign or malignant stricture. I told her that ideally he should undergo an ERCP and a colonoscopy. I discussed the need for anesthesias for these and the risks of perforation, hemorrhage and ERCP induced pancreatitis. She replied that she does not want her brother subjected to such interventions and requests conservative care measures. I also explained that I suspect that the diarrhea is paradoxical and that he is impacted. Although his C diff antigen is positive he has no toxin. - Objective Vital Signs: Vital Signs Temperature 97.3 F L 10/25/18 18:00 Pulse Rate 114 H 10/25/18 18:00 Respiratory Rate 18 10/25/18 18:00 Blood Pressure 129/74 10/25/18 18:00 O2 Sat by Pulse Oximetry (%) 97 10/25/18 17:20 Constitutional: No Distress ...Auscultate: Yes: Normoactive Bowel Sounds ...Palpate: Yes: Soft, Other (nontender) ...Rectal Exam: Yes: Guaiac Positive (fresh blood, no fissure or mass) Labs: CBC, BMP 10/25/18 07:25 10/25/18 07:25 INR, PTT INR 1.28 (0.83-1.09) H 10/17/18 17:50 Assessment/Plan Hematochezia is probably hemorrhoidal in origin Chronically dilated CBD Paradoxical diarrhea. Will withold Miralax until the bleeding subsides. Problem List - Problems (1) Hematochezia Assessment/Plan: The Hb has not fallen.Suspect internal hemorrhoidal bleeding. Code(s): K92.1 - MELENA (2) Common bile duct dilatation Code(s): K83.8 - OTHER SPECIFIED DISEASES OF BILIARY TRACT (3) Choledocholithiasis Code(s): K80.50 - CALCULUS OF BILE DUCT W/O CHOLANGITIS OR CHOLECYST W/O OBST (4) Diarrhea Code(s): R19.7 - DIARRHEA, UNSPECIFIED (5) Dementia Code(s): F03.90 - UNSPECIFIED DEMENTIA WITHOUT BEHAVIORAL DISTURBANCE (6) Atrial fibrillation with RVR Code(s): I48.91 - UNSPECIFIED ATRIAL FIBRILLATION (7) COPD with acute exacerbation Code(s): J44.1 - CHRONIC OBSTRUCTIVE PULMONARY DISEASE W (ACUTE) EXACERBATION (8) CVA, old, ataxia Code(s): I69.993 - ATAXIA FOLLOWING UNSPECIFIED CEREBROVASCULAR DISEASE (9) Diverticulitis Code(s): K57.92 - DVTRCLI OF INTEST, PART UNSP, W/O PERF OR ABSCESS W/O BLEED
[2018-10-25 19:51] LABS: BASO % 0.1 % (0-2.0); HEMATOCRIT 34.3 % (35.4-49); HEMOGLOBIN 11.8 GM/dL (11.7-16.9); MCH 33.8 pg (25.7-33.7); MCHC 34.4 g/dl (32.0-35.9); MEAN CELL VOLUME 98.1 fl (80-96); MEAN PLT VOLUME 10.1 fl (7.5-11.1); MONO % 6.4 % (3.8-10.2); NEUT % 89.5 % (42.8-82.8); PLATELET COUNT 237 K/MM3 (134-434); RBC 3.49 M/mm3 (4.00-5.60); RDW 16.2 % (11.9-15.9); WHITE BLOOD COUNT 8.7 K/mm3 (4.0-10.0)
[2018-10-25 20:22] LABS: ALK PHOS 130 U/L (45-117); ANION GAP 8 MMOL/L (8-16); BILIRUBIN,TOTAL 0.5 mg/dL (0.2-1); BLOOD UREA NITROGEN 64 mg/dL (7-18); CALCIUM 7.4 mg/dL (8.5-10.1); CHLORIDE 121 mmol/L (98-107); CO2 26 mmol/L (21-32); CREATININE 1.2 mg/dL (0.55-1.3); GLUCOSE,RANDOM 194 mg/dL (74-106); POTASSIUM 3.3 mmol/L (3.5-5.1); SGOT/AST 48 U/L (15-37); SGPT/ALT 45 U/L (13-61); SODIUM 154 mmol/L (136-145); TOT PROT 5.1 g/dl (6.4-8.2)
[2018-10-26] MEDS: methylPREDNISolone NA SUCC 40 MG/1 ML VIAL IVPUSH SCH ×3 (00:36→21:51)
[2018-10-26] MEDS: METOPROLOL TARTRATE 5 MG/5 ML VIAL IVPB SCH ×3 (00:37→22:44)
[2018-10-26] MEDS: INSULIN (LEVEMIR) 100 UNITS/ML UNITS SQ SCH ×2 (00:37→21:50)
[2018-10-26] MEDS: PIPERACILLIN/TAZOB 2.25 GM 2.25 GM in DEXTROSE 5%-WATER - 50 ML IVPB SCH ×3 (03:00→17:46)
[2018-10-26] MEDS ORDERED: PT OWN MED DRAWER 7, Y5N ONE (04:03)
[2018-10-26] MEDS: DEXTROSE 5%-WATER - 1,000 ML IV SCH ×2 (05:09→10:30)
[2018-10-26] MEDS: INSULIN SLIDING SCALE (NOVOLOG) 1 VIAL SQ SCH ×3 (06:02→17:05)
[2018-10-26] MEDS: ALBUTEROL SO4 2.5/IPRATROPIUM 0.5 INH SOL 3 ML VIAL.NEB. NEB SCH ×4 (07:30→20:10)
[2018-10-26 07:35] LABS: BASO % 0.1 % (0-2.0); EOS % 0.1 % (0-4.5); HEMATOCRIT 34.7 % (35.4-49); HEMOGLOBIN 11.2 GM/dL (11.7-16.9); LYMPH % 6.7 % (8-40); MCH 31.8 pg (25.7-33.7); MCHC 32.2 g/dl (32.0-35.9); MEAN CELL VOLUME 98.7 fl (80-96); MONO % 6.7 % (3.8-10.2); NEUT % 86.4 % (42.8-82.8); PLATELET COUNT 223 K/MM3 (134-434); RBC 3.52 M/mm3 (4.00-5.60); RDW 16.2 % (11.9-15.9); WHITE BLOOD COUNT 8.9 K/mm3 (4.0-10.0)
[2018-10-26 08:15] LABS: ALK PHOS 136 U/L (45-117); ANION GAP 8 MMOL/L (8-16); BILIRUBIN,TOTAL 0.6 mg/dL (0.2-1); BLOOD UREA NITROGEN 57 mg/dL (7-18); CALCIUM 7.6 mg/dL (8.5-10.1); CHLORIDE 123 mmol/L (98-107); CO2 26 mmol/L (21-32); CREATININE 1.1 mg/dL (0.55-1.3); GLUCOSE,RANDOM 131 mg/dL (74-106); POTASSIUM 3.5 mmol/L (3.5-5.1); SGOT/AST 52 U/L (15-37); SGPT/ALT 44 U/L (13-61); SODIUM 156 mmol/L (136-145)
--- NOTE | 2018-10-26 11:18 | PN ---
Progress Note (short form) - Note Progress Note: PULMONARY Constitutional: Yes: Well Nourished, Calm Eyes: Yes: WNL HENT: Yes: WNL Neck: Yes: WNL Cardiovascular: Yes: Pulse Irregular, S1, S2 Respiratory: Yes: On BiPap (scattered rhonchi) Gastrointestinal: Yes: Normal Bowel Sounds, Soft Extremities: Yes: WNL Edema: No LABS/MEDS/NOTES/IMAGES REVIEWED - Problems (1) Colitis Code(s): K52.9 - NONINFECTIVE GASTROENTERITIS AND COLITIS, UNSPECIFIED (2) Sepsis Code(s): A41.9 - SEPSIS, UNSPECIFIED ORGANISM Qualifiers: Sepsis type: sepsis due to unspecified organism Qualified Code(s): A41.9 - Sepsis, unspecified organism (3) Atrial fibrillation with RVR Code(s): I48.91 - UNSPECIFIED ATRIAL FIBRILLATION (4) Acute respiratory failure with hypoxia and hypercapnia Code(s): J96.01 - ACUTE RESPIRATORY FAILURE WITH HYPOXIA; J96.02 - ACUTE RESPIRATORY FAILURE WITH HYPERCAPNIA (5) COPD with acute exacerbation Code(s): J44.1 - CHRONIC OBSTRUCTIVE PULMONARY DISEASE W (ACUTE) EXACERBATION A/P CBD dilatation awaiting MRI abdomen Acute Hypoxic and Hypercapneic Respiratory Failure resolved Acute Colitis rxed w antibiotics Diarrhea Atrial Fibrillation with RVR Acute Kidney Injury Hypernatremia h/o CVA Hypothyroidism Dementia Left upper lobe lesion suspicious for malignancy - continue antibiotics per ID - monitor urine output, creatinine - medrol taper - inhaled bronchodilators - O2 - NIPPV to assist in work of breathing - rate control - anticoagulation - Should have further GOC discussions with family Rosaline COTTON MD
[2018-10-26] MEDS ORDERED: DEXTROSE 5%-WATER - 50 ML IVPB ONE ×2 (11:35→17:11)
[2018-10-26] MEDS ORDERED: PIPERACILLIN/TAZOBACTAM 2.25 GM VIAL IVPB ONE ×2 (11:35→17:11)
[2018-10-26] MEDS: LEVOTHYROXINE SODIUM 100 MCG VIAL IVPUSH SCH (11:42)
--- NOTE | 2018-10-26 12:32 | PN ---
Progress Note (short form) - Note Progress Note: pt seen/ examined chart reviewed all f/u noted awake/ comfortable Vital Signs Temp 97.7 F 10/26/18 06:00 Pulse 110 H 10/26/18 11:42 Resp 20 10/26/18 06:00 BP 143/89 10/26/18 11:42 Pulse Ox 99 10/26/18 09:00 Intake & Output 10/25/18 10/26/18 10/26/18 23:59 11:59 23:59 Intake Total 0 Output Total 400 550 Balance -400 -550 Weight 151 lb 4 oz Intake: Oral 0 Output: Urine 400 550 [place]one 400 550 Other: Voiding Method Indwelling Catheter Indwelling Catheter Bowel Movement Yes No # Bowel Movements 1 Body Mass Index (BMI) 26.1 Weight Measurement Method Patient Lift Scale Active Medications Albuterol Sulfate (Ventolin 0.083% Nebulizer Soln -) 1 amp NEB Q4H PRN PRN Reason: SHORT OF BREATH/WHEEZING Albuterol/Ipratropium (Duoneb -) 1 amp NEB RQID [facility] Last Admin: 10/26/18 11:57 Dose: 1 amp Piperacillin Sod/Tazobactam (Sod 2.25 gm/ Dextrose) 50 mls @ 100 mls/hr IVPB Q8H-[facility]; Protocol Last Admin: 10/26/18 03:00 Dose: Not Given Metronidazole (Flagyl 500mg Premixed Ivpb -) 500 mg in 100 mls @ 100 mls/hr IVPB Q8H-IV [facility] Last Admin: 10/26/18 11:40 Dose: 100 mls/hr Dextrose (D5w -) 1,000 mls @ 83.333 mls/hr IV Q12H [facility] Last Admin: 10/26/18 05:09 Dose: Not Given Insulin Aspart (Novolog Vial Sliding Scale -) 1 vial SQ TIDAC [facility]; Protocol Last Admin: 10/26/18 11:56 Dose: 3 units Insulin Detemir (Levemir Vial) 12 units SQ HS [facility] Last Admin: 10/26/18 00:37 Dose: Not Given Levothyroxine Sodium (Synthroid Injection -) 25 mcg IVPUSH DAILY [facility] Last Admin: 10/26/18 11:42 Dose: 25 mcg Methylprednisolone Sodium Succinate (Solu-Medrol -) 20 mg IVPUSH BID [facility] Last Admin: 10/26/18 11:56 Dose: 20 mg Metoprolol Tartrate (Lopressor Injection -) 5 mg IVPB Q12H [facility] Last Admin: 10/26/18 11:42 Dose: 5 mg CBC, BMP 10/26/18 06:00 10/26/18 06:00 Microbiology 10/25/18 13:12 Salmonella/Shigella Culture - Preliminary Stool NO ENTERIC PATHOGENS, 24 HOURS, ON PRIMARY PLATES Yersinia Culture - Preliminary NO ENTERIC PATHOGENS, 24 HOURS, ON PRIMARY PLATES Vibrio Culture - Preliminary NO ENTERIC PATHOGENS, 24 HOURS, ON PRIMARY PLATES Escherichia coli 0157 Culture - Preliminary NO ENTERIC PATHOGENS, 24 HOURS, ON PRIMARY PLATES 10/25/18 13:12 Clostridium difficile Antigen (KOBE) - Final Stool Clostridium difficile Toxin Assay - Final Physical Exam awake/ comfortable S1 S2 Irregular Lungs decreased Abd- soft / non tender No edema neuro- pre- deficits PLAN IV antibiotics IV fluids NPO for now d/c Lovenox f/u labs mrcp pending monitor bgm monitor labs will follow Problem List - Problems (1) Dehydration Code(s): E86.0 - DEHYDRATION (2) CVA, old, ataxia Code(s): I69.993 - ATAXIA FOLLOWING UNSPECIFIED CEREBROVASCULAR DISEASE (3) Acute respiratory failure with hypoxia and hypercapnia Code(s): J96.01 - ACUTE RESPIRATORY FAILURE WITH HYPOXIA; J96.02 - ACUTE RESPIRATORY FAILURE WITH HYPERCAPNIA (4) COPD with acute exacerbation Code(s): J44.1 - CHRONIC OBSTRUCTIVE PULMONARY DISEASE W (ACUTE) EXACERBATION (5) Colitis Code(s): K52.9 - NONINFECTIVE GASTROENTERITIS AND COLITIS, UNSPECIFIED (6) Hypernatremia Code(s): E87.0 - HYPEROSMOLALITY AND HYPERNATREMIA (7) Sepsis Code(s): A41.9 - SEPSIS, UNSPECIFIED ORGANISM Qualifiers: Sepsis type: sepsis due to unspecified organism Qualified Code(s): A41.9 - Sepsis, unspecified organism
--- NOTE | 2018-10-26 18:35 | PN ---
Progress Note (short form) - Note Progress Note: covering dr chance Problems vascular dementia, diverticulitis, afib on A/C, hypothyroidism, CVA, COPD lethargy/diarrhea MARIANO/dehydration. baseline Cr 1.2 Hypernatremia anemia Current Medications Albuterol Sulfate (Ventolin 0.083% Nebulizer Soln -) 1 amp NEB Q4H PRN PRN Reason: SHORT OF BREATH/WHEEZING Albuterol/Ipratropium (Duoneb -) 1 amp NEB RQID [facility] Last Admin: 10/26/18 16:00 Dose: Not Given Piperacillin Sod/Tazobactam (Sod 2.25 gm/ Dextrose) 50 mls @ 100 mls/hr IVPB Q8H-IV [facility]; Protocol Last Admin: 10/26/18 17:46 Dose: 100 mls/hr Metronidazole (Flagyl 500mg Premixed Ivpb -) 500 mg in 100 mls @ 100 mls/hr IVPB Q8H-IV [facility] Last Admin: 10/26/18 11:40 Dose: 100 mls/hr Dextrose (D5w -) 1,000 mls @ 83.333 mls/hr IV Q12H [facility] Last Admin: 10/26/18 10:30 Dose: 83.333 mls/hr Insulin Aspart (Novolog Vial Sliding Scale -) 1 vial SQ TIDAC [facility]; Protocol Last Admin: 10/26/18 17:05 Dose: 3 units Insulin Detemir (Levemir Vial) 12 units SQ HS [facility] Last Admin: 10/26/18 00:37 Dose: Not Given Levothyroxine Sodium (Synthroid Injection -) 25 mcg IVPUSH DAILY [facility] Last Admin: 10/26/18 11:42 Dose: 25 mcg Methylprednisolone Sodium Succinate (Solu-Medrol -) 20 mg IVPUSH BID [facility] Last Admin: 10/26/18 11:56 Dose: 20 mg Metoprolol Tartrate (Lopressor Injection -) 5 mg IVPB Q12H [facility] Last Admin: 10/26/18 11:42 Dose: 5 mg Last Vital Signs Temp Pulse Resp BP Pulse Ox 97.4 F L 112 H 20 158/98 99 10/26/18 18:14 10/26/18 18:14 10/26/18 18:14 10/26/18 18:14 10/26/18 09:00 CBC, BMP 10/26/18 06:00 10/26/18 06:00 Hypernatremia prerenal azotemia Renal function stable, BUN high due to steroids Trend BMP daily continue abx as per Id
[2018-10-27] MEDS ORDERED: PIPERACILLIN/TAZOBACTAM 2.25 GM VIAL IVPB ONE ×3 (01:42→16:13)
[2018-10-27] MEDS ORDERED: DEXTROSE 5%-WATER - 50 ML IVPB ONE ×3 (01:43→16:13)
[2018-10-27] MEDS: PIPERACILLIN/TAZOB 2.25 GM 2.25 GM in DEXTROSE 5%-WATER - 50 ML IVPB SCH ×3 (01:52→18:41)
[2018-10-27] MEDS: DEXTROSE 5%-WATER - 1,000 ML IV SCH ×3 (01:54→17:35)
[2018-10-27] MEDS: INSULIN SLIDING SCALE (NOVOLOG) 1 VIAL SQ SCH ×3 (06:31→16:32)
[2018-10-27 06:38] LABS: HBSAG SCREEN Negative (Negative); HEP A AB, IGM Negative (Negative); HEP B CORE AB, TOT Negative (Negative)
[2018-10-27] MEDS ORDERED: INSULIN (NOVOLOG) ASPART 100 UNITS/ML 10ML VIAL ONE (07:44)
[2018-10-27] MEDS: ALBUTEROL SO4 2.5/IPRATROPIUM 0.5 INH SOL 3 ML VIAL.NEB. NEB SCH ×4 (08:32→20:40)
[2018-10-27] MEDS: methylPREDNISolone NA SUCC 40 MG/1 ML VIAL IVPUSH SCH (10:30)
[2018-10-27] MEDS: LEVOTHYROXINE SODIUM 100 MCG VIAL IVPUSH SCH (10:40)
[2018-10-27] MEDS: METOPROLOL TARTRATE 5 MG/5 ML VIAL IVPB SCH ×2 (11:34→23:02)
--- NOTE | 2018-10-27 11:34 | PN ---
Progress Note (short form) - Note Progress Note: awake/ comfortable Vital Signs Temp 98.4 F 10/27/18 02:13 Pulse 110 H 10/27/18 02:13 Resp 20 10/27/18 02:13 BP 136/73 10/27/18 02:13 Pulse Ox 97 10/27/18 08:31 Intake & Output 10/26/18 10/26/18 10/27/18 11:59 23:59 11:59 Intake Total 800 1050 Output Total 550 900 300 Balance -550 -100 750 Weight 151 lb 4 oz 150 lb 2 oz Intake: IV 500 900 D5w - 1,000 ml @ 83.333 500 900 mls/hr IV Q12H [facility] Rx#: [id number] IVPB 300 150 Oral 0 Output: Urine 550 900 300 Bo[place] 550 900 300 Other: Voiding Method Indwelling Catheter Indwelling Catheter Indwelling Catheter Bowel Movement No Yes Yes Weight Measurement Method Patient Lift Scale Patient Lift Scale Active Medications Albuterol Sulfate (Ventolin 0.083% Nebulizer Soln -) 1 amp NEB Q4H PRN PRN Reason: SHORT OF BREATH/WHEEZING Albuterol/Ipratropium (Duoneb -) 1 amp NEB RQID [facility] Last Admin: 10/27/18 11:07 Dose: 1 amp Piperacillin Sod/Tazobactam (Sod 2.25 gm/ Dextrose) 50 mls @ 100 mls/hr IVPB Q8H-[facility]; Protocol Last Admin: 10/27/18 01:52 Dose: 100 mls/hr Metronidazole (Flagyl 500mg Premixed Ivpb -) 500 mg in 100 mls @ 100 mls/hr IVPB Q8H-[facility] Last Admin: 10/27/18 03:46 Dose: 100 mls/hr Dextrose (D5w -) 1,000 mls @ 83.333 mls/hr IV Q12H [facility] Last Admin: 10/27/18 03:48 Dose: Not Given Insulin Aspart (Novolog Vial Sliding Scale -) 1 vial SQ [facility]IDAC [facility]; Protocol Last Admin: 10/27/18 11:19 Dose: 4 units Insulin Detemir (Levemir Vial) 12 units SQ HS [facility] Last Admin: 10/26/18 21:50 Dose: Not Given Levothyroxine Sodium (Synthroid Injection -) 25 mcg IVPUSH DAILY [facility] Last Admin: 10/26/18 11:42 Dose: 25 mcg Methylprednisolone Sodium Succinate (Solu-Medrol -) 20 mg IVPUSH BID [facility] Last Admin: 10/26/18 21:51 Dose: 20 mg Metoprolol Tartrate (Lopressor Injection -) 5 mg IVPB Q12H [facility] Last Admin: 10/26/18 22:44 Dose: 5 mg Microbiology 10/25/18 13:12 Salmonella/Shigella Culture - Preliminary Stool NO ENTERIC PATHOGENS, 24 HOURS, ON PRIMARY PLATES Yersinia Culture - Preliminary NO ENTERIC PATHOGENS, 24 HOURS, ON PRIMARY PLATES Vibrio Culture - Preliminary NO ENTERIC PATHOGENS, 24 HOURS, ON PRIMARY PLATES Escherichia coli 0157 Culture - Preliminary NO ENTERIC PATHOGENS, 24 HOURS, ON PRIMARY PLATES CBC, BMP 10/26/18 06:00 10/26/18 06:00 Mri -- Abdomen-- Pending report Physical Exam awake/ comfortable S1 S2 Irregular Lungs decreased Abd- soft / non tender No edema neuro- pre- deficits PLAN IV antibiotics IV fluids start on diet - puree and observe d/c Lovenox f/u labs mrcp done -- pending report monitor bgm- better monitor labs will follow Problem List - Problems (1) Dehydration Code(s): E86.0 - DEHYDRATION (2) CVA, old, ataxia Code(s): I69.993 - ATAXIA FOLLOWING UNSPECIFIED CEREBROVASCULAR DISEASE (3) Acute respiratory failure with hypoxia and hypercapnia Code(s): J96.01 - ACUTE RESPIRATORY FAILURE WITH HYPOXIA; J96.02 - ACUTE RESPIRATORY FAILURE WITH HYPERCAPNIA (4) COPD with acute exacerbation Code(s): J44.1 - CHRONIC OBSTRUCTIVE PULMONARY DISEASE W (ACUTE) EXACERBATION (5) Colitis Code(s): K52.9 - NONINFECTIVE GASTROENTERITIS AND COLITIS, UNSPECIFIED (6) Hypernatremia Code(s): E87.0 - HYPEROSMOLALITY AND HYPERNATREMIA (7) Sepsis Code(s): A41.9 - SEPSIS, UNSPECIFIED ORGANISM Qualifiers: Sepsis type: sepsis due to unspecified organism Qualified Code(s): A41.9 - Sepsis, unspecified organism
--- NOTE | 2018-10-27 13:20 | PN ---
Progress Note (short form) - Note Progress Note: PULMONARY Constitutional: Yes:Calm Eyes: Yes: WNL HENT: Yes: WNL Neck: Yes: WNL Cardiovascular: Yes: Pulse Irregular, S1, S2 Respiratory: Yes: On nasal o2 (scattered minimal rhonchi) Gastrointestinal: Yes: Normal Bowel Sounds, Soft Extremities: Yes: WNL Edema: No LABS/MEDS/NOTES/IMAGES REVIEWED - Problems (1) Colitis Code(s): K52.9 - NONINFECTIVE GASTROENTERITIS AND COLITIS, UNSPECIFIED (2) Sepsis Code(s): A41.9 - SEPSIS, UNSPECIFIED ORGANISM Qualifiers: Sepsis type: sepsis due to unspecified organism Qualified Code(s): A41.9 - Sepsis, unspecified organism (3) Atrial fibrillation with RVR Code(s): I48.91 - UNSPECIFIED ATRIAL FIBRILLATION (4) Acute respiratory failure with hypoxia and hypercapnia Code(s): J96.01 - ACUTE RESPIRATORY FAILURE WITH HYPOXIA; J96.02 - ACUTE RESPIRATORY FAILURE WITH HYPERCAPNIA (5) COPD with acute exacerbation Code(s): J44.1 - CHRONIC OBSTRUCTIVE PULMONARY DISEASE W (ACUTE) EXACERBATION A/P CBD dilatation awaiting MRI abdomen reading Acute Hypoxic and Hypercapneic Respiratory Failure resolved Acute Colitis rxed w antibiotics Diarrhea Atrial Fibrillation with RVR Acute Kidney Injury Hypernatremia h/o CVA Hypothyroidism Dementia Left upper lobe lesion suspicious for malignancy - continue antibiotics per ID - monitor urine output, creatinine - medrol taper - inhaled bronchodilators - O2 - NIPPV to assist in work of breathing - rate control - anticoagulation - Should have further GOC discussions with family Rosaline COTTON MD
--- NOTE | 2018-10-27 20:29 | PN ---
Progress Note (short form) - Note Progress Note: covering dr chance Problems vascular dementia, diverticulitis, afib on A/C, hypothyroidism, CVA, COPD lethargy/diarrhea MARIANO/dehydration. baseline Cr 1.2 Hypernatremia anemia Current Medications Albuterol Sulfate (Ventolin 0.083% Nebulizer Soln -) 1 amp NEB Q4H PRN PRN Reason: SHORT OF BREATH/WHEEZING Albuterol/Ipratropium (Duoneb -) 1 amp NEB RQID [facility] Last Admin: 10/27/18 15:41 Dose: 1 amp Piperacillin Sod/Tazobactam (Sod 2.25 gm/ Dextrose) 50 mls @ 100 mls/hr IVPB Q8H-IV [facility]; Protocol Last Admin: 10/27/18 18:41 Dose: 100 mls/hr Metronidazole (Flagyl 500mg Premixed Ivpb -) 500 mg in 100 mls @ 100 mls/hr IVPB Q8H-IV [facility] Last Admin: 10/27/18 17:36 Dose: 100 mls/hr Dextrose (D5w -) 1,000 mls @ 83.333 mls/hr IV Q12H [facility] Last Admin: 10/27/18 17:35 Dose: 83.333 mls/hr Insulin Aspart (Novolog Vial Sliding Scale -) 1 vial SQ TIDAC [facility]; Protocol Last Admin: 10/27/18 16:32 Dose: 4 units Insulin Detemir (Levemir Vial) 12 units SQ HS [facility] Last Admin: 10/26/18 21:50 Dose: Not Given Levothyroxine Sodium (Synthroid Injection -) 25 mcg IVPUSH DAILY [facility] Last Admin: 10/27/18 10:40 Dose: 25 mcg Methylprednisolone Sodium Succinate (Solu-Medrol -) 20 mg IVPUSH DAILY [facility] Metoprolol Tartrate (Lopressor Injection -) 5 mg IVPB Q12H [facility] Last Admin: 10/27/18 11:34 Dose: 5 mg Last Vital Signs Temp Pulse Resp BP Pulse Ox 97.4 F L 110 H 20 143/82 97 10/27/18 17:21 10/27/18 17:21 10/27/18 17:21 10/27/18 17:21 10/27/18 09:00 lungs clear heart reg abd soft ext no edema CBC, BMP 10/26/18 06:00 10/26/18 06:00 Hypernatremia prerenal azotemia continue IV support Renal function stable, BUN high due to steroids Trend BMP daily continue abx as per Id
[2018-10-27] MEDS: INSULIN (LEVEMIR) 100 UNITS/ML UNITS SQ SCH (22:25)
[2018-10-28] MEDS ORDERED: PIPERACILLIN/TAZOBACTAM 2.25 GM VIAL IVPB ONE ×3 (01:02→14:41)
[2018-10-28] MEDS ORDERED: DEXTROSE 5%-WATER - 50 ML IVPB ONE ×3 (01:03→14:41)
[2018-10-28] MEDS: PIPERACILLIN/TAZOB 2.25 GM 2.25 GM in DEXTROSE 5%-WATER - 50 ML IVPB SCH ×3 (01:22→17:18)
[2018-10-28] MEDS: DEXTROSE 5%-WATER - 1,000 ML IV SCH ×3 (04:00→17:20)
[2018-10-28] MEDS: INSULIN SLIDING SCALE (NOVOLOG) 1 VIAL SQ SCH ×3 (06:24→16:29)
[2018-10-28 07:15] LABS: BASO % 0.1 % (0-2.0); HEMATOCRIT 31.9 % (35.4-49); HEMOGLOBIN 10.2 GM/dL (11.7-16.9); LYMPH % 5.9 % (8-40); MCH 31.6 pg (25.7-33.7); MCHC 32.2 g/dl (32.0-35.9); MEAN CELL VOLUME 98.2 fl (80-96); MEAN PLT VOLUME 9.8 fl (7.5-11.1); MONO % 6.8 % (3.8-10.2); NEUT % 87.2 % (42.8-82.8); PLATELET COUNT 197 K/MM3 (134-434); RBC 3.24 M/mm3 (4.00-5.60); RDW 16.5 % (11.9-15.9); WHITE BLOOD COUNT 9.1 K/mm3 (4.0-10.0)
[2018-10-28] MEDS: ALBUTEROL SO4 2.5/IPRATROPIUM 0.5 INH SOL 3 ML VIAL.NEB. NEB SCH (07:39)
[2018-10-28 07:41] LABS: ALBUMIN 1.8 g/dl (3.4-5.0); ALK PHOS 186 U/L (45-117); ANION GAP 8 MMOL/L (8-16); BILIRUBIN,TOTAL 0.6 mg/dL (0.2-1); BLOOD UREA NITROGEN 35 mg/dL (7-18); CHLORIDE 116 mmol/L (98-107); CO2 26 mmol/L (21-32); CREATININE 1.1 mg/dL (0.55-1.3); GLUCOSE,RANDOM 210 mg/dL (74-106); POTASSIUM 3.2 mmol/L (3.5-5.1); SGOT/AST 39 U/L (15-37); SGPT/ALT 39 U/L (13-61); SODIUM 149 mmol/L (136-145); TOT PROT 4.6 g/dl (6.4-8.2)
[2018-10-28] MEDS: methylPREDNISolone NA SUCC 40 MG/1 ML VIAL IVPUSH SCH (09:45)
[2018-10-28] MEDS: LEVOTHYROXINE SODIUM 100 MCG VIAL IVPUSH SCH (09:46)
--- NOTE | 2018-10-28 10:53 | PN ---
Progress Note (short form) - Note Progress Note: PULMONARY Pt nonverbal. No fevers recorded. Vital Signs Period Temp Pulse Resp BP Sys/Garcia Pulse Ox Last 24 Hr 97.4 F-97.9 F 102-115 20-20 143-158/76-85 97 Gen: NAD at rest Heart: tachycardic, regular Lung: decreased breath sounds at the bases Abd: soft, nontender Ext: no edema CBC, BMP 10/28/18 06:15 10/28/18 06:15 Active Medications Albuterol Sulfate (Ventolin 0.083% Nebulizer Soln -) 1 amp NEB Q4H PRN PRN Reason: SHORT OF BREATH/WHEEZING Albuterol/Ipratropium (Duoneb -) 1 amp NEB RQID [facility] Last Admin: 10/28/18 07:39 Dose: 1 amp Piperacillin Sod/Tazobactam (Sod 2.25 gm/ Dextrose) 50 mls @ 100 mls/hr IVPB Q8H-[facility]; Protocol Last Admin: 10/28/18 01:22 Dose: 100 mls/hr Metronidazole (Flagyl 500mg Premixed Ivpb -) 500 mg in 100 mls @ 100 mls/hr IVPB Q8H-[facility] Last Admin: 10/28/18 09:45 Dose: 100 mls/hr Dextrose (D5w -) 1,000 mls @ 83.333 mls/hr IV Q12H [facility] Last Admin: 10/28/18 09:51 Dose: 83.333 mls/hr Insulin Aspart (Novolog Vial Sliding Scale -) 1 vial SQ TIDAC [facility]; Protocol Last Admin: 10/28/18 06:24 Dose: 4 units Insulin Detemir (Levemir Vial) 12 units SQ HS [facility] Last Admin: 10/27/18 22:25 Dose: 12 units Levothyroxine Sodium (Synthroid Injection -) 25 mcg IVPUSH DAILY [facility] Last Admin: 10/28/18 09:46 Dose: 25 mcg Methylprednisolone Sodium Succinate (Solu-Medrol -) 20 mg IVPUSH DAILY [facility] Last Admin: 10/28/18 09:45 Dose: 20 mg Metoprolol Tartrate (Lopressor Injection -) 5 mg IVPB Q12H [facility] Last Admin: 10/27/18 23:02 Dose: 5 mg A/P Acute Hypoxic and Hypercapneic Respiratory Failure resolved Acute Colitis treated Diarrhea Dilated CBD Atrial Fibrillation with RVR Acute Kidney Injury Hypernatremia h/o CVA Hypothyroidism Dementia Left upper lobe lesion suspicious for malignancy - continue antibiotics per ID - f/u MRCP - monitor urine output, creatinine - medrol taper - inhaled bronchodilators - O2 - NIPPV to assist in work of breathing - rate control - anticoagulation - continue discussions regarding goals of care Problem List - Problems (1) Colitis Code(s): K52.9 - NONINFECTIVE GASTROENTERITIS AND COLITIS, UNSPECIFIED (2) Sepsis Code(s): A41.9 - SEPSIS, UNSPECIFIED ORGANISM Qualifiers: Sepsis type: sepsis due to unspecified organism Qualified Code(s): A41.9 - Sepsis, unspecified organism (3) Atrial fibrillation with RVR Code(s): I48.91 - UNSPECIFIED ATRIAL FIBRILLATION (4) Acute respiratory failure with hypoxia and hypercapnia Code(s): J96.01 - ACUTE RESPIRATORY FAILURE WITH HYPOXIA; J96.02 - ACUTE RESPIRATORY FAILURE WITH HYPERCAPNIA (5) COPD with acute exacerbation Code(s): J44.1 - CHRONIC OBSTRUCTIVE PULMONARY DISEASE W (ACUTE) EXACERBATION
[2018-10-28] MEDS: METOPROLOL TARTRATE 5 MG/5 ML VIAL IVPB SCH (11:07)
[2018-10-28] MEDS ORDERED: POTASSIUM CHLORIDE ORAL LIQUID 20 MEQ/15 ML PO ONE (11:25)
--- NOTE | 2018-10-28 11:25 | PN ---
Progress Note (short form) - Note Progress Note: Renal follow up for MARIANO Pt seen and examined at the bedside awake and alert eating a small amount as reported by his sister on IVF Vital Signs Temperature 97.8 F 10/28/18 08:42 Pulse Rate 103 H 10/28/18 11:07 Respiratory Rate 20 10/28/18 08:42 Blood Pressure 151/77 10/28/18 11:07 O2 Sat by Pulse Oximetry (%) 97 10/27/18 20:50 Intake & Output 10/25/18 10/26/18 10/27/18 10/28/18 23:59 23:59 23:59 23:59 Intake Total 238 133 0429 1050 Output Total 1100 1450 900 Balance -300 -650 1150 1050 Weight 68.946 kg 68.606 kg 68.096 kg NAD Trace sacral edema CBC, BMP 10/28/18 06:15 10/28/18 06:15 Current Medications Piperacillin Sod/Tazobactam (Sod 2.25 gm/ Dextrose) 50 mls @ 100 mls/hr IVPB Q8H-IV [facility]; Protocol Last Admin: 10/28/18 10:54 Dose: 100 mls/hr Metronidazole (Flagyl 500mg Premixed Ivpb -) 500 mg in 100 mls @ 100 mls/hr IVPB Q8H-IV [facility] Last Admin: 10/28/18 09:45 Dose: 100 mls/hr Dextrose (D5w -) 1,000 mls @ 83.333 mls/hr IV Q12H [facility] Last Admin: 10/28/18 09:51 Dose: 83.333 mls/hr Insulin Aspart (Novolog Vial Sliding Scale -) 1 vial SQ TIDAC [facility]; Protocol Last Admin: 10/28/18 11:05 Dose: 3 units Insulin Detemir (Levemir Vial) 12 units SQ HS [facility] Last Admin: 10/27/18 22:25 Dose: 12 units Levothyroxine Sodium (Synthroid Injection -) 25 mcg IVPUSH DAILY [facility] Last Admin: 10/28/18 09:46 Dose: 25 mcg Methylprednisolone Sodium Succinate (Solu-Medrol -) 20 mg IVPUSH DAILY [facility] Last Admin: 10/28/18 09:45 Dose: 20 mg Metoprolol Tartrate (Lopressor Injection -) 5 mg IVPB Q12H [facility] Last Admin: 10/28/18 11:07 Dose: 5 mg 82 year old gentleman with hx of vascular dementia, diverticulitis, afib on A/C , hypothyroidism, CVA, COPD who presented with lethargy and diarrhea from [place] and found to have MARIANO and dehydration. #MARIANO likely due to volume depletion in setting of diarrhea (baseline Cr 1.2, Urine sodium very low indicating preserved tubular function, 1+ protein on UA, no obstruction seen on CT of Abd)- now resolved #Hypernatremia #Diarrhea #Anemia Serum Na essentially unchanged Renal function now at baseline continue D5W oral intake as tolerated trend serum na daily Mohit Vizcaino DO
--- NOTE | 2018-10-28 12:35 | PN ---
Progress Note, MONOTYPE SETTER - Note Progress Note: Selected Entries 10/27/18 10/27/18 10/28/18 14:39 20:01 10:15 Breakfast 0 Lunch 25% Supper 50% Laboratory Tests 10/28/18 06:15 WBC 9.1 Started on puree/nectar thick liquids.Accepted food yesterday. Adamantly refusing today, with assistance of pt's sister. Vocal, non verbal (baseline x 9 years). Consider PEG insertion to supplement PO intake, if pt begins to eat.
--- NOTE | 2018-10-28 13:01 | PN ---
Progress Note (short form) - Note Progress Note: pt seen/ examined sister at bedside Vital Signs Temp 97.8 F 10/28/18 08:42 Pulse 103 H 10/28/18 11:07 Resp 20 10/28/18 09:00 BP 151/77 10/28/18 11:07 Pulse Ox 96 10/28/18 09:00 Intake & Output 10/27/18 10/28/18 10/28/18 23:59 11:59 23:59 Intake Total 1000 1050 Output Total 600 Balance 400 1050 Intake: IV 700 900 D5w - 1,000 ml @ 83.333 700 900 mls/hr IV Q12H [facility] Rx#: [id number] IVPB 150 150 Oral 150 Output: Urine 600 [place] 600 Other: Voiding Method Indwelling Catheter Indwelling Catheter Bowel Movement Yes Active Medications Piperacillin Sod/Tazobactam (Sod 2.25 gm/ Dextrose) 50 mls @ 100 mls/hr IVPB Q8H-IV [facility]; Protocol Last Admin: 10/28/18 10:54 Dose: 100 mls/hr Metronidazole (Flagyl 500mg Premixed Ivpb -) 500 mg in 100 mls @ 100 mls/hr IVPB Q8H-IV [facility] Last Admin: 10/28/18 09:45 Dose: 100 mls/hr Dextrose (D5w -) 1,000 mls @ 83.333 mls/hr IV Q12H [facility] Last Admin: 10/28/18 09:51 Dose: 83.333 mls/hr Insulin Aspart (Novolog Vial Sliding Scale -) 1 vial SQ TIDAC [facility]; Protocol Last Admin: 10/28/18 11:05 Dose: 3 units Insulin Detemir (Levemir Vial) 12 units SQ HS [facility] Last Admin: 10/27/18 22:25 Dose: 12 units Levothyroxine Sodium (Synthroid Injection -) 25 mcg IVPUSH DAILY [facility] Last Admin: 10/28/18 09:46 Dose: 25 mcg Methylprednisolone Sodium Succinate (Solu-Medrol -) 20 mg IVPUSH DAILY [facility] Last Admin: 10/28/18 09:45 Dose: 20 mg Metoprolol Tartrate (Lopressor Injection -) 5 mg IVPB Q12H [facility] Last Admin: 10/28/18 11:07 Dose: 5 mg CBC, BMP 10/28/18 06:15 10/28/18 06:15 Microbiology 10/25/18 13:12 Salmonella/Shigella Culture - Final Stool NO GROWTH OF SALMONELLA OR SHIGELLA SPECIES OBTAINED Campylobacter Culture - Final NO GROWTH OF CAMPYLOBACTER SPECIES OBTAINED Yersinia Culture - Final NO GROWTH OF YERSINIA SPECIES OBTAINED Vibrio Culture - Final NO GROWTH OF VIBRIO SPECIES OBTAINED Escherichia coli 0157 Culture - Final NO GROWTH OF E COLI 0157 OBTAINED mri -- noted Physical Exam awake/ comfortable S1 S2 Irregular Lungs decreased Abd- soft / non tender No edema neuro- pre- deficits PLAN IV antibiotics IV fluids tolerating diet off Lovenox Lovenox monitor labs gi to follow will follow Problem List - Problems (1) Dehydration Code(s): E86.0 - DEHYDRATION (2) CVA, old, ataxia Code(s): I69.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 - ATAXIA FOLLOWING UNSPECIFIED CEREBROVASCULAR DISEASE (3) Acute respiratory failure with hypoxia and hypercapnia Code(s): J96.01 - ACUTE RESPIRATORY FAILURE WITH HYPOXIA; J96.02 - ACUTE RESPIRATORY FAILURE WITH HYPERCAPNIA (4) COPD with acute exacerbation Code(s): J44.1 - CHRONIC OBSTRUCTIVE PULMONARY DISEASE W (ACUTE) EXACERBATION (5) Colitis Code(s): K52.9 - NONINFECTIVE GASTROENTERITIS AND COLITIS, UNSPECIFIED (6) Hypernatremia Code(s): E87.0 - HYPEROSMOLALITY AND HYPERNATREMIA (7) Sepsis Code(s): A41.9 - SEPSIS, UNSPECIFIED ORGANISM Qualifiers: Sepsis type: sepsis due to unspecified organism Qualified Code(s): A41.9 - Sepsis, unspecified organism
[2018-10-28] MEDS: INSULIN (LEVEMIR) 100 UNITS/ML UNITS SQ SCH (21:42)
[2018-10-29] MEDS: METOPROLOL TARTRATE 5 MG/5 ML VIAL IVPB SCH ×3 (00:37→23:27)
[2018-10-29] MEDS ORDERED: PIPERACILLIN/TAZOBACTAM 2.25 GM VIAL IVPB ONE ×3 (02:14→15:06)
[2018-10-29] MEDS ORDERED: DEXTROSE 5%-WATER - 50 ML IVPB ONE ×3 (02:15→15:06)
[2018-10-29] MEDS: PIPERACILLIN/TAZOB 2.25 GM 2.25 GM in DEXTROSE 5%-WATER - 50 ML IVPB SCH ×3 (02:26→17:18)
[2018-10-29] MEDS: DEXTROSE 5%-WATER - 1,000 ML IV SCH ×2 (02:27→06:43)
[2018-10-29] MEDS: INSULIN SLIDING SCALE (NOVOLOG) 1 VIAL SQ SCH ×3 (06:44→16:34)
[2018-10-29] MEDS: LEVOTHYROXINE SODIUM 100 MCG VIAL IVPUSH SCH (09:34)
[2018-10-29] MEDS: methylPREDNISolone NA SUCC 40 MG/1 ML VIAL IVPUSH SCH (09:36)
[2018-10-29 10:23] LABS: ALPHA 2 MACROGLOBULINS,QN 128 mg/dL (110-276); ALT(SGPT)P5P 37 IU/L (0-55); CHOLESTEROL TOTAL 129 mg/dL (100-199); FIBROSIS SCORE 0.68 (0.00-0.21); GGT= 197 IU/L (0-65); GLUCOSE SERUM 317 mg/dL (65-99); HEIGHT 64 in (.); WEIGHT- 152 LBS (.)
--- NOTE | 2018-10-29 10:45 | PN ---
Progress Note (short form) - Note Progress Note: PULMONARY Pt nonverbal. No fevers recorded. Vital Signs Period Temp Pulse Resp BP Sys/Garcia Pulse Ox Last 24 Hr 97.3 F-97.6 F 103-115 18-20 138-164/65-99 97 Gen: NAD at rest Heart: tachycardic, regular Lung: decreased breath sounds at the bases Abd: soft, nontender Ext: no edema CBC, BMP 10/28/18 06:15 10/28/18 06:15 Active Medications Piperacillin Sod/Tazobactam (Sod 2.25 gm/ Dextrose) 50 mls @ 100 mls/hr IVPB Q8H-IV [facility]; Protocol Last Admin: 10/29/18 09:33 Dose: 100 mls/hr Metronidazole (Flagyl 500mg Premixed Ivpb -) 500 mg in 100 mls @ 100 mls/hr IVPB Q8H-IV [facility] Last Admin: 10/29/18 10:05 Dose: 100 mls/hr Dextrose (D5w -) 1,000 mls @ 83.333 mls/hr IV Q12H [facility] Last Admin: 10/29/18 06:43 Dose: Not Given Insulin Aspart (Novolog Vial Sliding Scale -) 1 vial SQ TIDAC [facility]; Protocol Last Admin: 10/29/18 06:44 Dose: 3 units Insulin Detemir (Levemir Vial) 12 units SQ HS [facility] Last Admin: 10/28/18 21:42 Dose: 12 units Levothyroxine Sodium (Synthroid Injection -) 25 mcg IVPUSH DAILY [facility] Last Admin: 10/29/18 09:34 Dose: 25 mcg Methylprednisolone Sodium Succinate (Solu-Medrol -) 20 mg IVPUSH DAILY [facility] Last Admin: 10/29/18 09:36 Dose: 20 mg Metoprolol Tartrate (Lopressor Injection -) 5 mg IVPB Q12H [facility] Last Admin: 10/29/18 00:37 Dose: 5 mg A/P Acute Hypoxic and Hypercapneic Respiratory Failure resolved Acute Colitis treated Diarrhea Dilated CBD Atrial Fibrillation with RVR Acute Kidney Injury Hypernatremia h/o CVA Hypothyroidism Dementia Left upper lobe lesion suspicious for malignancy - continue antibiotics per ID - monitor urine output, creatinine - medrol taper - inhaled bronchodilators - O2 - NIPPV to assist in work of breathing - rate control - anticoagulation - continue discussions regarding goals of care Problem List - Problems (1) Colitis Code(s): K52.9 - NONINFECTIVE GASTROENTERITIS AND COLITIS, UNSPECIFIED (2) Sepsis Code(s): A41.9 - SEPSIS, UNSPECIFIED ORGANISM Qualifiers: Sepsis type: sepsis due to unspecified organism Qualified Code(s): A41.9 - Sepsis, unspecified organism (3) Atrial fibrillation with RVR Code(s): I48.91 - UNSPECIFIED ATRIAL FIBRILLATION (4) Acute respiratory failure with hypoxia and hypercapnia Code(s): J96.01 - ACUTE RESPIRATORY FAILURE WITH HYPOXIA; J96.02 - ACUTE RESPIRATORY FAILURE WITH HYPERCAPNIA (5) COPD with acute exacerbation Code(s): J44.1 - CHRONIC OBSTRUCTIVE PULMONARY DISEASE W (ACUTE) EXACERBATION
--- NOTE | 2018-10-29 12:34 | PN ---
Progress Note, [employer] - Note Progress Note: Selected Entries 10/29/18 09:20 Breakfast 0 Diet Tolerated Refused Laboratory Tests 10/28/18 06:15 WBC 9.1 Accepting some yogurt/pasha pudding from nursing. Suggest Ensure pudding and Magic cup, dense nutritionally.
[2018-10-29 14:08] VITALS: BMI 26.4
--- NOTE | 2018-10-29 14:14 | PN ---
Progress Note (short form) - Note Progress Note: RA 97% refusing to eat -- keeps in mouth no distress Vital Signs - 24 hr 10/28/18 10/28/18 10/28/18 15:18 17:19 21:00 Temperature 97.6 F 97.4 F L Pulse Rate 111 H 114 H Respiratory 20 20 Rate Blood Pressure 153/90 156/88 O2 Sat by Pulse 97 Oximetry (%) 10/28/18 10/29/18 10/29/18 23:00 00:37 01:33 Temperature 97.4 F L 97.4 F L Pulse Rate 114 H 114 H 103 H Respiratory 18 20 Rate Blood Pressure 164/99 164/99 138/65 O2 Sat by Pulse Oximetry (%) 10/29/18 10/29/18 10/29/18 05:57 08:34 09:00 Temperature 97.3 F L 97.6 F Pulse Rate 103 H 115 H Respiratory 20 20 20 Rate Blood Pressure 150/93 150/92 O2 Sat by Pulse 97 Oximetry (%) 10/29/18 11:29 Temperature Pulse Rate 112 H Respiratory Rate Blood Pressure 156/92 O2 Sat by Pulse Oximetry (%) Current Medications Generic Name Dose Route Start Last Admin Trade Name Freq PRN Reason Stop Dose Admin Piperacillin Sod/Tazobactam 50 mls @ 100 mls/hr 10/18/18 10:45 10/29/18 09:33 Sod 2.25 gm/ Dextrose IVPB 100 mls/hr Q8H-IV [facility] Administration Protocol Metronidazole 500 mg in 100 mls @ 100 mls/hr 10/23/18 18:00 10/29/18 10:05 Flagyl 500mg Premixed Ivpb - IVPB 100 mls/hr Q8H-IV [facility] Administration Dextrose 1,000 mls @ 83.333 mls/hr 10/25/18 15:46 10/29/18 06:43 D5w - IV Not Given Q12H [facility] Insulin Aspart 1 vial 10/24/18 11:00 10/29/18 11:30 Novolog Vial Sliding Scale - SQ Not Given TIDAC [facility] Protocol Insulin Detemir 12 units 10/25/18 22:00 10/28/18 21:42 Levemir Vial SQ 12 units HS [facility] Administration Levothyroxine Sodium 25 mcg 10/23/18 15:00 10/29/18 09:34 Synthroid Injection - IVPUSH 25 mcg DAILY [facility] Administration Methylprednisolone Sodium Succinate 20 mg 10/28/18 10:00 10/29/18 09:36 Solu-Medrol - IVPUSH 20 mg DAILY [facility] Administration Metoprolol Tartrate 5 mg 10/24/18 11:39 10/29/18 11:29 Lopressor Injection - IVPB 5 mg Q12H [facility] Administration Laboratory Results - last 24 hr 10/25/18 10/28/18 10/28/18 07:25 16:28 21:41 Haptoglobin 33 L Glucose 317 H POC Glucometer 229 194 Total Bilirubin 0.3 GGT 197 H AST 49 H ALT 37 Liver Fibrosis Score 0.68 H Liver Fibrosis Stage Liver Steatosis Score 0.92 H Liver Steatosis Grade [id number] 128 Triglycerides 132 Cholesterol 129 Apolipoprotein A-1 88 L Patient Height (cm) 64 Patient Weight (kg) 152 CSF IgG Interpretation 10/29/18 10/29/18 06:41 11:28 Haptoglobin Glucose POC Glucometer 162 81 Total Bilirubin GGT AST ALT Liver Fibrosis Score Liver Fibrosis Stage Liver Steatosis Score Liver Steatosis Grade [id number] Triglycerides Cholesterol Apolipoprotein A-1 Patient Height (cm) Patient Weight (kg) CSF IgG Interpretation S1 S2 Irregular Lungs decreased Abd- soft tender+ No edema PLAN IV antibiotics GI follow up with regards to MRI abd IV fluids encourage po restart lovenox-- lee clean HCT stable palliative care eval Problem List - Problems (1) Acute respiratory failure with hypoxia and hypercapnia Code(s): J96.01 - ACUTE RESPIRATORY FAILURE WITH HYPOXIA; J96.02 - ACUTE RESPIRATORY FAILURE WITH HYPERCAPNIA (2) Atrial fibrillation with RVR Code(s): I48.91 - UNSPECIFIED ATRIAL FIBRILLATION (3) COPD with acute exacerbation Code(s): J44.1 - CHRONIC OBSTRUCTIVE PULMONARY DISEASE W (ACUTE) EXACERBATION (4) Colitis Code(s): K52.9 - NONINFECTIVE GASTROENTERITIS AND COLITIS, UNSPECIFIED (5) Hypernatremia Code(s): E87.0 - HYPEROSMOLALITY AND HYPERNATREMIA (6) Sepsis Code(s): A41.9 - SEPSIS, UNSPECIFIED ORGANISM Qualifiers: Sepsis type: sepsis due to unspecified organism Qualified Code(s): A41.9 - Sepsis, unspecified organism
[2018-10-29 14:25] LABS: ANION GAP 7 MMOL/L (8-16); BLOOD UREA NITROGEN 23 mg/dL (7-18); CHLORIDE 98 mmol/L (98-107); CO2 25 mmol/L (21-32); POTASSIUM 3.1 mmol/L (3.5-5.1); SODIUM 131 mmol/L (136-145)
[2018-10-29] MEDS ORDERED: DEXTROSE 5%-WATER - 1,000 ML IV SCH (14:34)
[2018-10-29 14:41] LABS: GLUCOSE,RANDOM 561 mg/dL (74-106)
[2018-10-29] MEDS: ENOXAPARIN NA (PORCINE) 80 MG/0.8 ML DISP.SYRIN SQ SCH (15:18)
[2018-10-29] MEDS: KCL 10 MEQ IVPB 10 MEQ/100 ML INFUS.BAG IVPB SCH ×2 (15:19→17:05)
--- NOTE | 2018-10-29 15:20 | PN ---
Progress Note (short form) - Note Progress Note: Renal follow up for MARIANO Pt seen and examined at the bedside awake and alert taking but garbled not eating as per nurse on IVF Vital Signs Temperature 97.8 F 10/28/18 08:42 Pulse Rate 103 H 10/28/18 11:07 Respiratory Rate 20 10/28/18 08:42 Blood Pressure 151/77 10/28/18 11:07 O2 Sat by Pulse Oximetry (%) 97 10/27/18 20:50 Intake & Output 10/25/18 10/26/18 10/27/18 10/28/18 23:59 23:59 23:59 23:59 Intake Total 164 114 0367 1050 Output Total 1100 1450 900 Balance -300 -650 1150 1050 Weight 68.946 kg 68.606 kg 68.096 kg NAD Trace sacral edema CBC, BMP 10/28/18 06:15 10/28/18 06:15 Current Medications Piperacillin Sod/Tazobactam (Sod 2.25 gm/ Dextrose) 50 mls @ 100 mls/hr IVPB Q8H-IV [facility]; Protocol Last Admin: 10/28/18 10:54 Dose: 100 mls/hr Metronidazole (Flagyl 500mg Premixed Ivpb -) 500 mg in 100 mls @ 100 mls/hr IVPB Q8H-IV [facility] Last Admin: 10/28/18 09:45 Dose: 100 mls/hr Dextrose (D5w -) 1,000 mls @ 83.333 mls/hr IV Q12H [facility] Last Admin: 10/28/18 09:51 Dose: 83.333 mls/hr Insulin Aspart (Novolog Vial Sliding Scale -) 1 vial SQ TIDAC [facility]; Protocol Last Admin: 10/28/18 11:05 Dose: 3 units Insulin Detemir (Levemir Vial) 12 units SQ HS [facility] Last Admin: 10/27/18 22:25 Dose: 12 units Levothyroxine Sodium (Synthroid Injection -) 25 mcg IVPUSH DAILY [facility] Last Admin: 10/28/18 09:46 Dose: 25 mcg Methylprednisolone Sodium Succinate (Solu-Medrol -) 20 mg IVPUSH DAILY [facility] Last Admin: 10/28/18 09:45 Dose: 20 mg Metoprolol Tartrate (Lopressor Injection -) 5 mg IVPB Q12H [facility] Last Admin: 10/28/18 11:07 Dose: 5 mg 82 year old gentleman with hx of vascular dementia, diverticulitis, afib on A/C , hypothyroidism, CVA, COPD who presented with lethargy and diarrhea from [place] and found to have MARIANO and dehydration. #MARIANO likely due to volume depletion in setting of diarrhea (baseline Cr 1.2, Urine sodium very low indicating preserved tubular function, 1+ protein on UA, no obstruction seen on CT of Abd)- now resolved #Hypernatremia (now WNL, corrected Na is 138) #Diarrhea #Anemia #Hypocalcemia (corrected Ca is 7.76) #Hypokalemia Renal function and serum na is WNL will change IVF to Clinimix as pt with poor oral intake and electrolyte distrubances are resolved trend serum Ca levels, no indication for IV calcium Supplement K, goal > 3.5 Mohit Vizcaino DO
[2018-10-29] MEDS ORDERED: AMINO ACIDS 4.25%/D5W 1,000 ML IV SCH (15:45)
--- NOTE | 2018-10-29 17:47 | PN ---
Progress Note (short form) - Note Progress Note: oresting quietly no diarrhea eating poorly Vital Signs Period Temp Pulse Resp BP Sys/Garcia Pulse Ox Last 24 Hr 97.3 F-97.6 F 103-115 18-20 138-164/65-99 97-97 cor-rrr lungs clear abd soft,nt ext no edema CBC, BMP 10/28/18 06:15 10/29/18 12:55 Microbiology 10/25/18 13:12 Stool Salmonella/Shigella Culture - Final NO GROWTH OF SALMONELLA OR SHIGELLA SPECIES OBTAINED 10/25/18 13:12 Stool Campylobacter Culture - Final NO GROWTH OF CAMPYLOBACTER SPECIES OBTAINED 10/25/18 13:12 Stool Yersinia Culture - Final NO GROWTH OF YERSINIA SPECIES OBTAINED 10/25/18 13:12 Stool Vibrio Culture - Final NO GROWTH OF VIBRIO SPECIES OBTAINED 10/25/18 13:12 Stool Escherichia coli 0157 Culture - Final NO GROWTH OF E COLI 0157 OBTAINED 10/25/18 13:12 Stool Clostridium difficile Antigen (KOBE) - Final 10/25/18 13:12 Stool Clostridium difficile Toxin Assay - Final 10/19/18 14:25 Blood - Peripheral Venous Blood Culture - Final NO GROWTH AFTER 5 DAYS INCUBATION 10/19/18 14:25 Blood - Peripheral Venous Blood Culture - Final NO GROWTH AFTER 5 DAYS INCUBATION 10/17/18 17:53 Blood - Peripheral Venous Blood Culture - Final NO GROWTH AFTER 5 DAYS INCUBATION 10/17/18 17:50 Blood - Peripheral Venous Blood Culture - Final Staphylococcus Epidermidis 10/19/18 11:50 Urine - Urine [place] Urine Culture - Final NO GROWTH OBTAINED 10/17/18 17:50 Urine - Urine - Catheterized Urine Culture - Final NO GROWTH OBTAINED a/p colitis- choledocholithiasis- MRCP noted- no plans for ercp hypoxemic respiratory failure/copd exacerbation dementia apical lung mass- no workup planned per pulmonary note notes reviewed, conservative management will d/c antibiotics and observe
[2018-10-29] MEDS ORDERED: INSULIN (NOVOLOG) ASPART 100 UNITS/ML 10ML VIAL ONE (21:36)
[2018-10-29] MEDS ORDERED: PT OWN MED DRAWER 7, Y5N ONE (21:38)
[2018-10-29] MEDS: INSULIN (LEVEMIR) 100 UNITS/ML UNITS SQ SCH (22:11)
[2018-10-30] MEDS: INSULIN SLIDING SCALE (NOVOLOG) 1 VIAL SQ SCH ×2 (06:19→14:48)
[2018-10-30] MEDS ORDERED: INSULIN (LEVEMIR) 100 UNITS/ML UNITS SQ ONE (07:01)
[2018-10-30] MEDS ORDERED: INSULIN (NOVOLOG) ASPART 100 UNITS/ML 10ML VIAL ONE (07:01)
[2018-10-30 08:04] LABS: ALK PHOS 172 U/L (45-117); ANION GAP 13 MMOL/L (8-16); BILIRUBIN,TOTAL 0.8 mg/dL (0.2-1); BLOOD UREA NITROGEN 33 mg/dL (7-18); CHLORIDE 104 mmol/L (98-107); CO2 20 mmol/L (21-32); CREATININE 1.2 mg/dL (0.55-1.3); POTASSIUM 3.5 mmol/L (3.5-5.1); SGOT/AST 26 U/L (15-37); SGPT/ALT 27 U/L (13-61); SODIUM 137 mmol/L (136-145); TOT PROT 4.7 g/dl (6.4-8.2)
[2018-10-30 08:10] LABS: CALCIUM 6.6 mg/dL (8.5-10.1); GLUCOSE,RANDOM 312 mg/dL (74-106)
[2018-10-30] MEDS ORDERED: PT OWN MED DRAWER 7, Y5N ONE (09:07)
[2018-10-30] MEDS: ENOXAPARIN NA (PORCINE) 80 MG/0.8 ML DISP.SYRIN SQ SCH (09:25)
[2018-10-30] MEDS: LEVOTHYROXINE SODIUM 100 MCG VIAL IVPUSH SCH (09:26)
[2018-10-30] MEDS: methylPREDNISolone NA SUCC 40 MG/1 ML VIAL IVPUSH SCH (09:26)
[2018-10-30 10:07] VITALS: TEMP 98.4
[2018-10-30] MEDS ORDERED: MORPHINE SULFATE 2 MG/ML VIAL IVPUSH PRN ×2 (10:32→13:05)
[2018-10-30] MEDS: METOPROLOL TARTRATE 5 MG/5 ML VIAL IVPB SCH ×2 (10:48→12:01)
--- NOTE | 2018-10-30 11:01 | PN ---
Progress Note (short form) - Note Progress Note: Renal follow up for MARIANO and hypernatremia Vital Signs Temperature 98.4 F 10/30/18 10:00 Pulse Rate 117 H 10/30/18 10:48 Respiratory Rate 20 10/30/18 10:00 Blood Pressure 152/69 10/30/18 10:48 O2 Sat by Pulse Oximetry (%) 96 10/29/18 21:00 Intake & Output 10/27/18 10/28/18 10/29/18 10/30/18 23:59 23:59 23:59 23:59 Intake Total 2050 2250 2040 700 Output Total 900 500 650 200 Balance 1150 1750 1390 500 Weight 68.096 kg 70.035 kg 70.624 kg CBC, BMP 10/30/18 06:00 Current Medications Enoxaparin Sodium (Lovenox -) 70 mg SQ BID [facility] Last Admin: 10/30/18 09:25 Dose: 70 mg Amino Acids (Clinimix -) 1,000 mls @ 42 mls/hr IV Q24H [facility] Insulin Aspart (Novolog Vial Sliding Scale -) 1 vial SQ TIDAC [facility]; Protocol Last Admin: 10/30/18 06:19 Dose: Not Given Insulin Detemir (Levemir Vial) 12 units SQ HS [facility] Last Admin: 10/29/18 22:11 Dose: 12 units Levothyroxine Sodium (Synthroid Injection -) 25 mcg IVPUSH DAILY [facility] Last Admin: 10/30/18 09:26 Dose: 25 mcg Methylprednisolone Sodium Succinate (Solu-Medrol -) 20 mg IVPUSH DAILY [facility] Last Admin: 10/30/18 09:26 Dose: 20 mg Metoprolol Tartrate (Lopressor Injection -) 5 mg IVPB Q12H [facility] Last Admin: 10/30/18 10:48 Dose: 5 mg Morphine Sulfate (Morphine Sulfate) 1 mg IVPUSH Q6H PRN PRN Reason: PAIN LEVEL 6-10 Last Admin: 10/30/18 10:48 Dose: 1 mg 82 year old gentleman with hx of vascular dementia, diverticulitis, afib on A/C , hypothyroidism, CVA, COPD who presented with lethargy and diarrhea from [place] and found to have MARIANO and dehydration. #MARIANO likely due to volume depletion in setting of diarrhea (baseline Cr 1.2, Urine sodium very low indicating preserved tubular function, 1+ protein on UA, no obstruction seen on CT of Abd)- now resolved #Hypernatremia (now WNL, corrected Na is 138) #Diarrhea #Anemia #Hypocalcemia (corrected Ca is 7.76) #Hypokalemia Mohit Vizcaino DO
[2018-10-30] MEDS ORDERED: PANTOPRAZOLE SODIUM 40 MG VIAL IVPUSH ONE (11:12)
[2018-10-30 11:17] LABS: BASO % 0.2 % (0-2.0); EOS % 0.1 % (0-4.5); HEMOGLOBIN 10.7 GM/dL (11.7-16.9); LYMPH % 1.5 % (8-40); MCH 33.6 pg (25.7-33.7); MCHC 31.3 g/dl (32.0-35.9); MEAN CELL VOLUME 107.2 fl (80-96); MEAN PLT VOLUME 11.7 fl (7.5-11.1); NEUT % 95.2 % (42.8-82.8); PLATELET COUNT 188 K/MM3 (134-434); RBC 3.18 M/mm3 (4.00-5.60); RDW 18.9 % (11.9-15.9); WHITE BLOOD COUNT 14.7 K/mm3 (4.0-10.0)
[2018-10-30] MEDS ORDERED: PANTOPRAZOLE SODIUM 80 MG in SODIUM CHLORIDE 100 ML IVPB ONE (11:45)
[2018-10-30] MEDS ORDERED: MIDAZOLAM 100 MG/100 ML MG IVPB ONE (11:58)
[2018-10-30] MEDS ORDERED: PROPOFOL 1,000,000 MCG/100 ML VIAL IVPB SCH (12:00)
[2018-10-30] MEDS ORDERED: NOREPINEPHRINE BITARTRATE 8,000 MCG in DEXTROSE 5%-WATER - 492 ML IV SCH (12:00)
[2018-10-30] MEDS ORDERED: MIDAZOLAM 100 MG in SODIUM CHLORIDE 100 ML IVPB SCH (12:00)
[2018-10-30] MEDS ORDERED: PANTOPRAZOLE SODIUM 80 MG in SODIUM CHLORIDE 100 ML IVPB SCH (12:00)
[2018-10-30] MEDS ORDERED: LACTATED RINGERS SOLUTION 1,000 ML/1,000 ML INFUS.BAG IV SCH (12:15)
[2018-10-30 12:26] LABS: EOS % 0.1 % (0-4.5); HEMATOCRIT 30.5 % (35.4-49); HEMOGLOBIN 9.2 GM/dL (11.7-16.9); MCH 32.8 pg (25.7-33.7); MCHC 30.3 g/dl (32.0-35.9); MEAN CELL VOLUME 108.5 fl (80-96); MONO % 2.2 % (3.8-10.2); NEUT % 90.7 % (42.8-82.8); PLATELET COUNT 186 K/MM3 (134-434); RBC 2.81 M/mm3 (4.00-5.60); WHITE BLOOD COUNT 13.6 K/mm3 (4.0-10.0)
[2018-10-30 12:34] LABS: ARTERIAL BLD GAS O2 SATURATION 93.8 % (90-98.9); ARTERIAL BLOOD GAS BASE EXCESS -23.2 meq/l (-2-2); ARTERIAL BLOOD GAS PCO2 43.1 mmHg (35-45); ARTERIAL BLOOD GAS pH 6.91 (7.35-7.45)
[2018-10-30 12:35] LABS: ALLENS TEST POSITIVE
[2018-10-30] MEDS ORDERED: SODIUM BICARBONATE 8.4% 50 MEQ/50 ML VIAL ONE (12:40)
[2018-10-30] MEDS ORDERED: DEXTROSE 5%-WATER - 1,000 ML with SODIUM BICARBONATE 8.4% - 100 MEQ IV SCH (12:45)
[2018-10-30] MEDS ORDERED: SODIUM BICARBONATE 8.4% - 150 MEQ in DEXTROSE 5%-WATER - 1,000 ML IV SCH (12:48)
--- NOTE | 2018-10-30 12:49 | PN ---
Physical Exam: SUBJECTIVE: Patient seen and examined OBJECTIVE: Vital Signs Period Temp Pulse Resp BP Sys/Garcia Pulse Ox Last 24 Hr 97.6 F-99.3 F 113-120 20-20 151-160/69-97 96 GENERAL: The patient is awake, alert, and fully oriented, in no acute distress. HEAD: Normal with no signs of trauma. EYES: PERRL, extraocular movements intact, sclera anicteric, conjunctiva clear. No ptosis. ENT: Ears normal, nares patent, oropharynx clear without exudates, moist mucous membranes. NECK: Trachea midline, full range of motion, supple. LUNGS: Breath sounds equal, clear to auscultation bilaterally, no wheezes, no crackles, no accessory muscle use. HEART: Regular rate and rhythm, S1, S2 without murmur, rub or gallop. ABDOMEN: Soft, nontender, nondistended, normoactive bowel sounds, no guarding, no rebound, no hepatosplenomegaly, no masses. EXTREMITIES: 2+ pulses, warm, well-perfused, no edema. NEUROLOGICAL: Cranial nerves II through XII grossly intact. Normal speech, gait not observed. PSYCH: Normal mood, normal affect. SKIN: Warm, dry, normal turgor, no rashes or lesions noted Laboratory Results - last 24 hr 10/29/18 10/29/18 10/29/18 12:55 16:33 22:10 WBC RBC Hgb Hct MCV MCH MCHC RDW Plt Count MPV Absolute Neuts (auto) Neutrophils % Lymphocytes % Monocytes % Eosinophils % Basophils % Nucleated RBC % Sodium 131 L Potassium 3.1 L Chloride 98 Carbon Dioxide 25 Anion Gap 7 L BUN 23 H Creatinine 1.0 Creat Clearance w eGFR > 60 POC Glucometer 146 179 Random Glucose 561 H* Calcium 6.0 L* Total Bilirubin AST ALT Alkaline Phosphatase Total Protein Albumin 10/30/18 10/30/18 10/30/18 06:00 06:00 06:18 WBC 14.7 H RBC 3.18 L Hgb 10.7 L Hct 34.0 L MCV 107.2 H D MCH 33.6 MCHC 31.3 L RDW 18.9 H Plt Count 188 MPV 11.7 H D Absolute Neuts (auto) 14.0 H Neutrophils % 95.2 H Lymphocytes % 1.5 L D Monocytes % 3.0 L Eosinophils % 0.1 D Basophils % 0.2 Nucleated RBC % 0 Sodium 137 Potassium 3.5 Chloride 104 Carbon Dioxide 20 L Anion Gap 13 BUN 33 H Creatinine 1.2 Creat Clearance w eGFR 57.82 POC Glucometer 130 Random Glucose 312 H* Calcium 6.6 L* Total Bilirubin 0.8 AST 26 ALT 27 Alkaline Phosphatase 172 H Total Protein 4.7 L Albumin 2.0 L Active Medications Generic Name Dose Route Start Last Admin Trade Name Freq PRN Reason Stop Dose Admin Amino Acids 1,000 mls @ 42 mls/hr 10/30/18 18:00 Clinimix - IV Q24H [facility] Pantoprazole Sodium 80 mg/ 100 mls @ 10 mls/hr 10/30/18 11:45 Sodium Chloride IVPB 10/30/18 21:44 ONCE ONE Pantoprazole Sodium 80 mg/ 100 mls @ 10 mls/hr 10/30/18 12:00 Sodium Chloride IVPB Q10H [facility] 8 MG/HR Midazolam HCl 100 mg/ Sodium 100 mls @ 1 mls/hr 10/30/18 12:00 Chloride IVPB TITR [facility] Protocol 1 MG/HR Norepinephrine Bitartrate 8, 500 mls @ 18.75 mls/hr 10/30/18 12:00 000 mcg/ Dextrose IV TITR [facility] Protocol 5 MCG/MIN Propofol 1,000,000 mcg in 100 mls @ 2.119 mls/hr 10/30/18 12:00 Diprivan - IVPB TITR [facility] Protocol 5 MCG/KG/MIN Lactated Ringer's 1,000 ml in 1,000 mls @ 125 mls/hr 10/30/18 12:15 Lactated Ringers Solution IV ASDIR [facility] Insulin Aspart 1 vial 10/24/18 11:00 10/30/18 06:19 Novolog Vial Sliding Scale - SQ Not Given TIDAC [facility] Protocol Insulin Detemir 12 units 10/25/18 22:00 10/29/18 22:11 Levemir Vial SQ 12 units HS [facility] Administration Levothyroxine Sodium 25 mcg 10/23/18 15:00 10/30/18 09:26 Synthroid Injection - IVPUSH 25 mcg DAILY [facility] Administration Methylprednisolone Sodium Succinate 20 mg 10/28/18 10:00 10/30/18 09:26 Solu-Medrol - IVPUSH 20 mg DAILY [facility] Administration Metoprolol Tartrate 5 mg 10/24/18 11:39 12/05/18 12:01 Lopressor Injection - IVPB Not Given Q12H [facility] Morphine Sulfate 1 mg 10/30/18 10:32 Morphine Sulfate IVPUSH Q6H PRN PAIN LEVEL 6-10 Pantoprazole Sodium 40 mg 10/30/18 22:00 Protonix - PO BID [facility] ASSESSMENT/PLAN:
--- NOTE | 2018-10-30 12:53 | PN ---
Progress Note (short form) - Note Progress Note: This morning CODE 99 called on floors. ROSC was achieved and pt was transferred to ICU intubated and on dopamine. In the ICU, CODE 99 called at 12:30pm. ROSC was achieved at 12:39pm. See code sheet for details
--- NOTE | 2018-10-30 12:56 | HOSP ---
Subjective - Review of Symptoms Events since last encounter: At 11:10 am a rapid response was called overhead. The call was immediately changed to code 99. Patient was found to have coffee ground emesis, pulses checked and no pulses palpable. Code was preformed and ROSC was achieved. See code sheet for details. Physical Examination Vital Signs: Vital Signs Temperature 98.4 F 10/30/18 10:00 Pulse Rate 117 H 10/30/18 10:00 Respiratory Rate 20 10/30/18 10:00 Blood Pressure 152/69 10/30/18 10:00 O2 Sat by Pulse Oximetry (%) 96 10/29/18 21:00 Labs: CBC, BMP 10/30/18 12:10 Visit type - Emergency Visit Emergency Visit: No - New Patient This patient is new to me today: Yes Date on this admission: 10/30/18 - Critical Care Critical Care patient: Yes Total Critical Care Time (in minutes): 30 Critical Care Statement: The care of this patient involved high complexity decision making to prevent further life threatening deterioration of the patient 's condition and/or to evaluate & treat vital organ system(s) failure or risk of failure.
--- NOTE | 2018-10-30 13:11 | PN ---
Progress Note (short form) - Note Progress Note: Examined pt this AM as his BP was low, moaning,lethargic He started having coffee grounds coming from mouth- NG tube passed adn dark fluid obtained Pt went into cardiac arrest-- code 99 called- pt was resuscitated successfully, intubated- now in ICU Pt went into second cardiac arrest Spoke with sister , her who were at bedside palliative nurse also in attendance Sister does not want further compressions , pt also has 4 children- one daughter was contacted who also agreed that pt should be DNR, no heroic measures forms signed, Pt is DNR Problem List - Problems (1) Acute respiratory failure with hypoxia and hypercapnia Code(s): J96.01 - ACUTE RESPIRATORY FAILURE WITH HYPOXIA; J96.02 - ACUTE RESPIRATORY FAILURE WITH HYPERCAPNIA (2) Atrial fibrillation with RVR Code(s): I48.91 - UNSPECIFIED ATRIAL FIBRILLATION (3) COPD with acute exacerbation Code(s): J44.1 - CHRONIC OBSTRUCTIVE PULMONARY DISEASE W (ACUTE) EXACERBATION (4) Colitis Code(s): K52.9 - NONINFECTIVE GASTROENTERITIS AND COLITIS, UNSPECIFIED (5) Hypernatremia Code(s): E87.0 - HYPEROSMOLALITY AND HYPERNATREMIA (6) Sepsis Code(s): A41.9 - SEPSIS, UNSPECIFIED ORGANISM Qualifiers: Qualified Code(s): A41.9 - Sepsis, unspecified organism
[2018-10-30 13:12] LABS: ALBUMIN 1.4 g/dl (3.4-5.0); ALK PHOS 146 U/L (45-117); ANION GAP 20 MMOL/L (8-16); BLOOD UREA NITROGEN 34 mg/dL (7-18); CHLORIDE 113 mmol/L (98-107); CO2 16 mmol/L (21-32); CREATININE 1.8 mg/dL (0.55-1.3); GLUCOSE,RANDOM 120 mg/dL (74-106); PHOSPHOROUS 7.4 mg/dL (2.5-4.9); SGOT/AST 728 U/L (15-37); SGPT/ALT 370 U/L (13-61); SODIUM 148 mmol/L (136-145); TOT PROT 3.7 g/dl (6.4-8.2)
--- NOTE | 2018-10-30 13:14 | PN ---
Teaching Attending Note Name of Resident: Alberto Song ATTENDING PHYSICIAN STATEMENT I saw and evaluated the patient. I reviewed the resident's note and discussed the case with the resident. I agree with the resident's findings and plan as documented. SUBJECTIVE: Pt seen and examined in the ICU. Transferred down to ICU s/p cardiopulmonary arrest, noted to have coffee ground emesis. Now intubated, unresponsive off sedation. PEA arrest again with ROSC after 8 minutes. Sister at bedside and daughter contacted by palliative care who both wish for DNR. OBJECTIVE: Vital Signs Period Temp Pulse Resp BP Sys/Garcia Pulse Ox Last 24 Hr 97.6 F-99.3 F 113-120 20-20 151-160/69-97 96 Intake & Output 10/27/18 10/28/18 10/29/18 10/30/18 23:59 23:59 23:59 23:59 Intake Total 2050 2250 2040 700 Output Total 900 500 650 200 Balance 1150 1750 1390 500 Weight 68.096 kg 70.035 kg 70.624 kg Gen: intubated, unresponsive, agonal breathing Heart: tachycardic, regular Lung: scattered rhonchi Abd: soft, nontender Ext: no edema CBC, BMP 10/30/18 12:10 10/30/18 12:10 ABG Results ABG pH 6.91 (7.35-7.45) L* D 10/30/18 12:26 ABG pCO2 at Pt Temp 43.1 mmHg (35-45) 10/30/18 12:26 ABG pO2 at Pt Temp 127.0 mmHg (68-100) H D 10/30/18 12:26 ABG HCO3 8.2 meq/L (22-26) L* 10/30/18 12:26 ABG O2 Sat (Measured) 93.8 % (90-98.9) 10/30/18 12:26 ABG O2 Content 12.4 % vol (15-22) L 10/30/18 12:26 ABG Base Excess -23.2 meq/l (-2-2) L* 10/30/18 12:26 Active Medications Amino Acids (Clinimix -) 1,000 mls @ 42 mls/hr IV Q24H [facility]EL[facility] Pantoprazole Sodium 80 mg/ (Sodium Chloride) 100 mls @ 10 mls/hr IVPB ONCE ONE Stop: 10/30/18 21:44 Pantoprazole Sodium 80 mg/ (Sodium Chloride) 100 mls @ 10 mls/hr IVPB Q10H [facility] Midazolam HCl 100 mg/ Sodium (Chloride) 100 mls @ 1 mls/hr IVPB TITR FELIPE; Protocol Norepinephrine Bitartrate 8, (000 mcg/ Dextrose) 500 mls @ 18.75 mls/hr IV TITR FELIPE; Protocol Propofol (Diprivan -) 1,000,000 mcg in 100 mls @ 2.119 mls/hr IVPB TITR FELIPE; Protocol Lactated Ringer's (Lactated Ringers Solution) 1,000 ml in 1,000 mls @ 125 mls/ hr IV ASDIR [facility] Sodium Bicarbonate 150 meq/ (Dextrose) 1,150 mls @ 125 mls/hr IV Q10H [facility] Insulin Aspart (Novolog Vial Sliding Scale -) 1 vial SQ TIDAC [facility]; Protocol Last Admin: 10/30/18 06:19 Dose: Not Given Insulin Detemir (Levemir Vial) 12 units SQ HS [facility] Last Admin: 10/29/18 22:11 Dose: 12 units Levothyroxine Sodium (Synthroid Injection -) 25 mcg IVPUSH DAILY [facility] Last Admin: 10/30/18 09:26 Dose: 25 mcg Methylprednisolone Sodium Succinate (Solu-Medrol -) 20 mg IVPUSH DAILY [facility] Last Admin: 10/30/18 09:26 Dose: 20 mg Metoprolol Tartrate (Lopressor Injection -) 5 mg IVPB Q12H [facility] Last Admin: 10/30/18 12:01 Dose: Not Given Morphine Sulfate (Morphine Sulfate) 1 mg IVPUSH Q6H PRN PRN Reason: PAIN LEVEL 6-10 Morphine Sulfate (Morphine Sulfate) 2 mg IVPUSH Q2H PRN PRN Reason: PAIN LEVEL 6-10 ASSESSMENT AND PLAN: s/p Cardiopulmonary Arrest r/o GI Bleed Shock - Septic vs Hypovolemic Severe Metabolic Acidosis Dilated CBD Atrial Fibrillation with RVR Acute Kidney Injury Hypernatremia h/o CVA Hypothyroidism Dementia Left upper lobe lesion suspicious for malignancy - protonix gtt - bicarb gtt - IVF - titrate pressors to maintain MAP >65 - monitor urine output, creatinine - empiric antibiotics - inhaled bronchodilators - rate control - holding anticoagulation - pt now DNR, continue discussions regarding goals of care critical care time spent in reviewing chart, evaluating patient and formulating plan 35 min Problem List - Problems (1) Colitis Code(s): K52.9 - NONINFECTIVE GASTROENTERITIS AND COLITIS, UNSPECIFIED (2) Sepsis Code(s): A41.9 - SEPSIS, UNSPECIFIED ORGANISM Qualifiers: Sepsis type: sepsis due to unspecified organism Qualified Code(s): A41.9 - Sepsis, unspecified organism (3) Atrial fibrillation with RVR Code(s): I48.91 - UNSPECIFIED ATRIAL FIBRILLATION (4) Acute respiratory failure with hypoxia and hypercapnia Code(s): J96.01 - ACUTE RESPIRATORY FAILURE WITH HYPOXIA; J96.02 - ACUTE RESPIRATORY FAILURE WITH HYPERCAPNIA (5) COPD with acute exacerbation Code(s): J44.1 - CHRONIC OBSTRUCTIVE PULMONARY DISEASE W (ACUTE) EXACERBATION
[2018-10-30 13:19] LABS: CALCIUM 6.8 mg/dL (8.5-10.1)
[2018-10-30 13:32] LABS: INR 2.13 (0.83-1.09); PROTHROMBIN TIME (PATIENT) 25.3 SEC (9.7-13.0)
[2018-10-30 13:35] LABS: ACTIVATED PTT 52.2 SECONDS (25.2-36.5)
--- NOTE | 2018-10-30 14:06 | PROC ---
Procedure Note Procedure: called to a code 99 earlier today. ACLS in progress. pt. with large amounts of coffee ground emesis in oropharynx and NG tube. Suctoned, Mac 4 grade 1 view. 8.0 ETT placed atraumatically. +EtCO2, BS=BL. Taped at 22 at the lips.
--- NOTE | 2018-10-30 14:14 | PN ---
Physical Exam: SUBJECTIVE: Pt seen and examined in the ICU. Transferred down to ICU s/p cardiopulmonary arrest, noted to have coffee ground emesis. Now intubated, unresponsive off sedation. PEA arrest again with ROSC after 8 minutes. Sister at bedside and daughter contacted by palliative care who both wish for DNR. OBJECTIVE: Vital Signs Period Temp Pulse Resp BP Sys/Garcia Pulse Ox Last 24 Hr 97.6 F-99.3 F 113-120 20-20 151-160/69-97 96 GENERAL: intubated unresponsive off sedation HEENT: NCTA, coffee ground emesis at mouth NECK: supple. LUNGS: scattered rhonchi HEART: Regular rate and rhythm, S1, S2 without murmur, rub or gallop. ABDOMEN: Soft, NTND, EXTREMITIES: 1+ pulses, warm, well-perfused, no edema. NEUROLOGICAL: intubated unresponsive off sedation SKIN: Warm, dry, normal turgor, no rashes or lesions noted Laboratory Results - last 24 hr 10/29/18 10/29/18 10/29/18 12:55 16:33 22:10 WBC RBC Hgb Hct MCV MCH MCHC RDW Plt Count MPV Absolute Neuts (auto) Neutrophils % Lymphocytes % Monocytes % Eosinophils % Basophils % Nucleated RBC % PT with INR INR PTT (Actin FS) Puncture Site ABG pH ABG pCO2 at Pt Temp ABG pO2 at Pt Temp ABG HCO3 ABG O2 Sat (Measured) ABG O2 Content ABG Base Excess Nate Test Oxygen Flow Rate Pressure Support Vent Sodium 131 L Potassium 3.1 L Chloride 98 Carbon Dioxide 25 Anion Gap 7 L BUN 23 H Creatinine 1.0 Creat Clearance w eGFR > 60 POC Glucometer 146 179 Random Glucose 561 H* Lactic Acid Calcium 6.0 L* Phosphorus Magnesium Total Bilirubin AST ALT Alkaline Phosphatase Creatine Kinase Creatine Kinase Index CK-MB (CK-2) Troponin I Total Protein Albumin 10/30/18 10/30/18 10/30/18 06:00 06:00 06:18 WBC 14.7 H RBC 3.18 L Hgb 10.7 L Hct 34.0 L MCV 107.2 H D MCH 33.6 MCHC 31.3 L RDW 18.9 H Plt Count 188 MPV 11.7 H D Absolute Neuts (auto) 14.0 H Neutrophils % 95.2 H Lymphocytes % 1.5 L D Monocytes % 3.0 L Eosinophils % 0.1 D Basophils % 0.2 Nucleated RBC % 0 PT with INR INR PTT (Actin FS) Puncture Site ABG pH ABG pCO2 at Pt Temp ABG pO2 at Pt Temp ABG HCO3 ABG O2 Sat (Measured) ABG O2 Content ABG Base Excess Nate Test Oxygen Flow Rate Pressure Support Vent Sodium 137 Potassium 3.5 Chloride 104 Carbon Dioxide 20 L Anion Gap 13 BUN 33 H Creatinine 1.2 Creat Clearance w eGFR 57.82 POC Glucometer 130 Random Glucose 312 H* Lactic Acid Calcium 6.6 L* Phosphorus Magnesium Total Bilirubin 0.8 AST 26 ALT 27 Alkaline Phosphatase 172 H Creatine Kinase Creatine Kinase Index CK-MB (CK-2) Troponin I Total Protein 4.7 L Albumin 2.0 L 10/30/18 10/30/18 10/30/18 12:10 12:10 12:22 WBC 13.6 H RBC 2.81 L Hgb 9.2 L Hct 30.5 L MCV 108.5 H MCH 32.8 MCHC 30.3 L RDW 18.0 H Plt Count 186 MPV 10.0 D Absolute Neuts (auto) 12.3 H Neutrophils % 90.7 H Lymphocytes % 7.0 L D Monocytes % 2.2 L Eosinophils % 0.1 Basophils % 0.0 Nucleated RBC % 1 H PT with INR 25.30 H INR 2.13 H PTT (Actin FS) 52.2 H Puncture Site ABG pH ABG pCO2 at Pt Temp ABG pO2 at Pt Temp ABG HCO3 ABG O2 Sat (Measured) ABG O2 Content ABG Base Excess Nate Test Oxygen Flow Rate Pressure Support Vent Sodium 148 H Potassium 5.0 Chloride 113 H Carbon Dioxide 16 L Anion Gap 20 H BUN 34 H Creatinine 1.8 H Creat Clearance w eGFR 36.21 POC Glucometer Random Glucose 120 H Lactic Acid Calcium 6.8 L* Phosphorus 7.4 H Magnesium 2.0 Total Bilirubin 1.0 AST 728 H ALT 370 H Alkaline Phosphatase 146 H Creatine Kinase 190 Creatine Kinase Index 1.4 CK-MB (CK-2) 2.8 Troponin I 0.32 H Total Protein 3.7 L Albumin 1.4 L 10/30/18 10/30/18 10/30/18 12:22 12:22 12:26 WBC RBC Hgb Hct MCV MCH MCHC RDW Plt Count MPV Absolute Neuts (auto) Neutrophils % Lymphocytes % Monocytes % Eosinophils % Basophils % Nucleated RBC % PT with INR INR PTT (Actin FS) Cancelled Puncture Site Right radial ABG pH 6.91 L* D ABG pCO2 at Pt Temp 43.1 ABG pO2 at Pt Temp 127.0 H D ABG HCO3 8.2 L* ABG O2 Sat (Measured) 93.8 ABG O2 Content 12.4 L ABG Base Excess -23.2 L* Nate Test Positive Oxygen Flow Rate Yes Pressure Support Vent 500 Sodium Potassium Chloride Carbon Dioxide Anion Gap BUN Creatinine Creat Clearance w eGFR POC Glucometer Random Glucose Lactic Acid 14.6 H* Calcium Phosphorus Magnesium Total Bilirubin AST ALT Alkaline Phosphatase Creatine Kinase Creatine Kinase Index CK-MB (CK-2) Troponin I Total Protein Albumin 10/30/18 13:03 WBC RBC Hgb Hct MCV MCH MCHC RDW Plt Count MPV Absolute Neuts (auto) Neutrophils % Lymphocytes % Monocytes % Eosinophils % Basophils % Nucleated RBC % PT with INR INR PTT (Actin FS) Puncture Site ABG pH ABG pCO2 at Pt Temp ABG pO2 at Pt Temp ABG HCO3 ABG O2 Sat (Measured) ABG O2 Content ABG Base Excess Nate Test Oxygen Flow Rate Pressure Support Vent Sodium Potassium Chloride Carbon Dioxide Anion Gap BUN Creatinine Creat Clearance w eGFR POC Glucometer [phone] Random Glucose Lactic Acid Calcium Phosphorus Magnesium Total Bilirubin AST ALT Alkaline Phosphatase Creatine Kinase Creatine Kinase Index CK-MB (CK-2) Troponin I Total Protein Albumin Active Medications Generic Name Dose Route Start Last Admin Trade Name Freq PRN Reason Stop Dose Admin Amino Acids 1,000 mls @ 42 mls/hr 10/30/18 18:00 Clinimix - IV Q24H [facility]EL[facility] Pantoprazole Sodium 80 mg/ 100 mls @ 10 mls/hr 10/30/18 11:45 Sodium Chloride IVPB 10/30/18 21:44 ONCE ONE Pantoprazole Sodium 80 mg/ 100 mls @ 10 mls/hr 10/30/18 12:00 Sodium Chloride IVPB Q10H FELIPE 8 MG/HR Midazolam HCl 100 mg/ Sodium 100 mls @ 1 mls/hr 10/30/18 12:00 Chloride IVPB TITR [facility]ELIPE Protocol 1 MG/HR Norepinephrine Bitartrate 8, 500 mls @ 18.75 mls/hr 10/30/18 12:00 000 mcg/ Dextrose IV TITR FELIPE Protocol 5 MCG/MIN Propofol 1,000,000 mcg in 100 mls @ 2.119 mls/hr 10/30/18 12:00 Diprivan - IVPB TITR FELIPE Protocol 5 MCG/KG/MIN Lactated Ringer's 1,000 ml in 1,000 mls @ 125 mls/hr 10/30/18 12:15 Lactated Ringers Solution IV ASDIR [facility] Sodium Bicarbonate 150 meq/ 1,150 mls @ 125 mls/hr 10/30/18 12:48 Dextrose IV Q10H [facility] Insulin Aspart 1 vial 10/24/18 11:00 10/30/18 06:19 Novolog Vial Sliding Scale - SQ Not Given TIDAC [facility] Protocol Insulin Detemir 12 units 10/25/18 22:00 10/29/18 22:11 Levemir Vial SQ 12 units HS [facility]ELIPE Administration Levothyroxine Sodium 25 mcg 10/23/18 15:00 10/30/18 09:26 Synthroid Injection - IVPUSH 25 mcg DAILY [facility]ELIPE Administration Methylprednisolone Sodium Succinate 20 mg 10/28/18 10:00 10/30/18 09:26 Solu-Medrol - IVPUSH 20 mg DAILY [facility]ELIPE Administration Metoprolol Tartrate 5 mg 10/24/18 11:39 10/30/18 12:01 Lopressor Injection - IVPB Not Given Q12H [facility] Morphine Sulfate 1 mg 10/30/18 10:32 Morphine Sulfate IVPUSH Q6H PRN PAIN LEVEL 6-10 Morphine Sulfate 2 mg 10/30/18 13:05 Morphine Sulfate IVPUSH Q2H PRN PAIN LEVEL 6-10 ASSESSMENT/PLAN: 82YOM with h/o vascular dementia, bedbound, aphasic, diverticulitis Afib on Xarelto, hypothyroidism, CVA (residual right sided hemiplegia),COPD, recently treated for colitis, who was transferred from the correction for increasing lethargy. Reportedly having multiple episodes of diarrhea. Was found w/ dilated CBD during hospitaloization. Now transferred to ICU following Cardiopulmonary Arrest. Problems s/p Cardiopulmonary Arrest x 2 r/o GI Bleed - coffee ground emesis Shock - Septic vs Hypovolemic Severe Metabolic Acidosis Dilated CBD Atrial Fibrillation with RVR MARIANO Hypernatremia h/o CVA Hypothyroidism Dementia HOLLY lesion suspicious for malignancy NEURO intubated unresponsive off sedation Cardiac/PULM/GI/RENAL/ID -labs: cbc,cmp,mg, phos, lactic, cardiac enzymes, CXR, EKG, ABG, coags -bicarb gtt -IVF -titrate pressors to maintain MAP >65 -cardiac monitoring -monitor urine output, creatinine -lee -ngt -may need EGD when stable - inhaled bronchodilators -rate control -empiric antibiotics pain ctl FEN bicarb gtt replete prn NPO ppx -holding anticoagulation -SCDs - protonix gtt DISPO -pt now DNR, continue discussions regarding goals of care -ICU monitoring Visit type - Emergency Visit Emergency Visit: Yes ED Registration Date: 10/17/18 Care time: The patient presented to the Emergency Department on the above date and was hospitalized for further evaluation of their emergent condition. - New Patient This patient is new to me today: Yes Date on this admission: 10/30/18 - Critical Care Critical Care patient: Yes Total Critical Care Time (in minutes): 40 Critical Care Statement: The care of this patient involved high complexity decision making to prevent further life threatening deterioration of the patient 's condition and/or to evaluate & treat vital organ system(s) failure or risk of failure.
[2018-10-30 14:58] LABS: ANISOCYTOSIS 1+; MACROCYTOSIS 1+; PLATELET ESTIMATE NORMAL
[2018-10-30 15:09] LABS: ANISOCYTOSIS 1+; MACROCYTOSIS 1+; PLATELET ESTIMATE NORMAL
[2018-10-30 15:13] VITALS: BP 85/55; PULSE 133
--- NOTE | 2018-10-30 15:39 | PN ---
Progress Note (short form) - Note Progress Note: Called to evaluate pt for coffee ground emesis s/p cardiopulmonary arrest requiring intubation and transfer to ICU. Pt unresponsive not on sedation though was requiring pressor support. Small amount of coffee ground secretions noted in tubing and dark blood on rectal exam. Pending stat labs. Pt had PEA arrest again with ROSC. On further discussion per ICU team with pts sister and daughter, they do not want further resuscitative measures and elect pt to be DNR. Pt subsequently noted to have absent pulse and . Please also refer to ICU notes for additional details.
--- NOTE | 2018-10-30 15:46 | EKG ---
Test Reason : Blood Pressure : / mmHG Vent. Rate : 125 BPM Atrial Rate : 166 BPM P-R Int : 000 ms QRS Dur : 082 ms QT Int : 312 ms P-R-T Axes : 000 002 236 degrees QTc Int : 450 ms ATRIAL FIBRILLATION WITH RAPID VENTRICULAR RESPONSE WITH PREMATURE VENTRICULAR OR ABERRANTLY CONDUCTED COMPLEXES LOW VOLTAGE QRS CANNOT RULE OUT ANTERIOR INFARCT , AGE UNDETERMINED ABNORMAL ECG WHEN COMPARED WITH ECG OF 17-OCT-2018 18:37, ST NOW DEPRESSED IN ANTERIOR LEADS T WAVE INVERSION NOW EVIDENT IN INFERIOR LEADS NONSPECIFIC T WAVE ABNORMALITY, WORSE IN ANTEROLATERAL LEADS Confirmed by MARIA R CARRILLO MD ([id number]) on 10/30/2018 3:45:46 PM Referred By: JEROMY TIWARI Confirmed By:MARIA R CARRILLO MD
[2018-10-30] MEDS ORDERED: AMINO ACIDS 4.25%/D5W 1,000 ML IV SCH (18:00)
--- NOTE | 2018-10-30 18:55 | DS ---
Physical Examination Vital Signs: Vital Signs Temperature 98.4 F 10/30/18 10:00 Pulse Rate 133 H 10/30/18 12:00 Respiratory Rate 14 10/30/18 11:50 Blood Pressure 85/55 L 10/30/18 12:00 O2 Sat by Pulse Oximetry (%) 96 10/29/18 21:00 Labs: CBC, BMP 10/30/18 12:10 10/30/18 12:10 Discharge Summary Reason For Visit: COLITIS,HYPERNATREMIA,SEPSIS,ARTERIAL FIBRILLATION Current Active Problems Acute respiratory failure with hypoxia and hypercapnia (Acute) Atrial fibrillation with RVR (Acute) COPD with acute exacerbation (Acute) CVA, old, ataxia (Acute) Choledocholithiasis (Acute) Colitis (Acute) Common bile duct dilatation (Acute) Dehydration (Acute) Dementia (Acute) Diarrhea (Acute) Hematochezia (Acute) Hypernatremia (Acute) Sepsis (Acute) Condition: Guarded - Instructions - Home Medications Comprehensive Discharge Medication List: Ambulatory Orders Calcium Carbonate/Vitamin D3 [Oyster Shell Calcium 500+D Tab] 1 each PO BID Carvedilol 25 mg PO BID 05/13/13 Docusate Sodium [Colace] 100 mg PO HS 05/13/13 Folic Acid 1 mg PO DAILY 05/13/13 Levothyroxine [Synthroid] 50 mcg PO DAILY 05/13/13 Na Phos,M-B/Na Phos,Di-Ba [Fleet Enema] 118 ml RC DAILY PRN 05/13/13 Sennosides [Senna] 8.6 mg PO HS 05/13/13 Simvastatin [Zocor] 40 mg PO HS 05/13/13 Warfarin Sodium [Coumadin] 2 mg PO HS 05/13/13 Ferrous Sulfate 60 mg PO BID 09/21/18 Magnesium Hydroxide [Milk of Magnesia] 30 ml PO PRN PRN 09/21/18 Tamsulosin HCl [Flomax] 0.4 mg PO DAILY 09/21/18 Tiotropium [place] [Spiriva] 18 mcg IH DAILY 09/21/18
[2018-10-30] MEDS ORDERED: PANTOPRAZOLE 40 MG TABLET (FP) PO SCH (22:00)
== END 2018-10-30 13:51 | disposition expired | DRG 871 ==
LOC: JER 16:44 → JERBED 22:03 → OBSVTOIN 22:57 → J5S 10-18 04:47 → J7W 10-25 22:02 → JICU 10-30 11:48
PROVIDERS: ADMIT Internal Medicine; ATTEND Internal Medicine
PROC: 0BH17EZ Insertion of Endotracheal Airway into Trachea, Via Natural or Artificial Opening (ICD-10-PCS; principal; 2018-10-30)
PROC: 5A1935Z Respiratory Ventilation, Less than 24 Consecutive Hours (ICD-10-PCS; 2018-10-30)
PROC: 5A12012 Performance of Cardiac Output, Single, Manual (ICD-10-PCS; 2018-10-30)
PROC: 0D9670Z Drainage of Stomach with Drainage Device, Via Natural or Artificial Opening (ICD-10-PCS; 2018-10-30)
DX: A41.9 Sepsis, unspecified organism (principal); G93.41 Metabolic encephalopathy; J96.01 Acute respiratory failure with hypoxia; J96.02 Acute respiratory failure with hypercapnia; R65.21 Severe sepsis with septic shock; G81.91 Hemiplegia, unspecified affecting right dominant side; E87.0 Hyperosmolality and hypernatremia; J98.11 Atelectasis; J90 Pleural effusion, not elsewhere classified; N17.9 Acute kidney failure, unspecified; R47.01 Aphasia; J44.1 Chronic obstructive pulmonary disease with (acute) exacerbation; K92.1 Melena; K57.92 Diverticulitis of intestine, part unspecified, without perforation or abscess without bleeding; E87.2 Acidosis; I48.91 Unspecified atrial fibrillation; E11.9 Type 2 diabetes mellitus without complications; I10 Essential (primary) hypertension; E78.5 Hyperlipidemia, unspecified; E03.9 Hypothyroidism, unspecified; F03.90 Unspecified dementia, unspecified severity, without behavioral disturbance, psychotic disturbance, mood disturbance, and anxiety; K52.9 Noninfective gastroenteritis and colitis, unspecified; D64.9 Anemia, unspecified; N40.0 Benign prostatic hyperplasia without lower urinary tract symptoms; K74.60 Unspecified cirrhosis of liver; K80.50 Calculus of bile duct without cholangitis or cholecystitis without obstruction; E86.0 Dehydration; R00.0 Tachycardia, unspecified; I48.0 Paroxysmal atrial fibrillation; R65.20 Severe sepsis without septic shock; R91.8 Other nonspecific abnormal finding of lung field; K83.8 Other specified diseases of biliary tract; E83.51 Hypocalcemia; E87.6 Hypokalemia; I46.9 Cardiac arrest, cause unspecified; Z66 Do not resuscitate; Z74.01 Bed confinement status
CPT/HCPCS: 36415; 36600; 70450-TC; 71045-TC-FY; 71250-TC; 74019-TC-FY; 74176-TC; 74181-TC; 76705-TC; 80048; 80053; 80076; 81003; 81015; 82105; 82150; 82172; 82247; 82272; 82375; 82465; 82550; 82553; 82570; 82803; 82947; 82962; 82977; 83010; 83050; 83605; 83690; 83735; 83883; 84100; 84300; 84443; 84450; 84460; 84478; 84484; 85025; 85027; 85610; 85730; 86140; 86704; 86706; 86708; 86803; 86850; 86900; 86901; 87040; 87045; 87046; 87086; 87186; 87324; 87340; 87449; 93005; 93010; 94002; 94640; 94660; 99285-25; G0378; J0131; Q9967